=== PATIENT | male | born 1965 | race Caucasian/White ===

== ENCOUNTER → 2017-04-12 10:52 | Outpatient (CLI) | payer OTHER, SELFPAY ==
[2017-04-12 12:06] LABS: Absolute Lymphocyte Count 2.48 X10^3/ul (0.83-4.51); Basophil# 0.05 X10^3/uL; Basophil% 0.6 % (0-1); Eosinophil# 0.16 X10^3/uL; Eosinophils% 1.8 % (0-5); Hematocrit 49.2 % (40-54); Hemoglobin 16.8 g/dl (13.0-16.5); Lymphocyte # 2.48 X10^3/ul (4.0); Lymphocyte % 28.2 % (19-41); Mean Corp Hgb Conc 34.1 g/gl (32-36); Mean Corpuscular Hgb 29.5 pg (27.0-32.0); Mean Corpuscular Volume 86.5 fL (80-94); Mean Platelet Vol. 10.8 fl (6.2-12.0); Monocyte# 1.03 X10^3/uL; Monocyte% 11.7 % (0-10); Neutrophil # 5.03 X10^3/uL (2.7-7.7); Neutrophil % 57.2 % (47-70); Platelet Count 271 K/mm3 (150-450); RBC Distribution Width CV 13.7 % (11.6-14.6); RBC Distribution Width SD 43.3 fl (35.1-43.9); Red Blood Count 5.69 M/mm3 (4.6-6.2); White Blood Count 8.8 K/mm3 (4.4-11.0)
[2017-04-12 12:08] LABS: POSITIVE COUNT NO; POSITIVE DIFFERENTIAL NO; POSITIVE MORPHOLOGY NO
[2017-04-12 12:18] LABS: Hemoglobin A1c 5.7 % (4.2-6.3)
[2017-04-12 12:41] LABS: ALB/GLOB Ratio 1.1 RATIO (0.9-2.4); AST(SGOT) 44 U/L (15-37); Alanine Aminotransfer ALT/SGPT 119 U/L (16-61); Alkaline Phosphatase 62 U/L (45-117); Anion Gap 6 (5-15); BUN 14 mg/dL (7-18); BUN/Creat Ratio 11.3 RATIO (10-20); Calcium,Total 8.7 mg/dL (8.5-10.1); Chloride 103 mmol/L (98-107); Creatinine, Serum 1.24 mg/dL (0.70-1.30); EST Glomerular Filtration Rate 66 mL/min (>60); Est Glom Filt Rate - Afr Amer 79 mL/min (>60); Globulin 3.5 g/dL (2.2-4.2); Glucose 92 mg/dL (70-110); PSA,Total - Annual Screen 1.32 ng/mL (0.00-4.00); Potassium 4.6 mmol/L (3.5-5.1); Protein, Total 7.5 g/dL (6.4-8.2); Sodium Level 138 mmol/L (136-145); T4 Free Direct 1.14 ng/dL (0.76-1.46); Thyroid Stim Hormone (TSH) 1.56 uIU/mL (0.358-3.74)
== END ==
PROVIDERS: Visit Provider Family Medicine
DX: N18.9 Chronic kidney disease, unspecified (principal); E78.5 Hyperlipidemia, unspecified; K76.0 Fatty (change of) liver, not elsewhere classified; Z80.42 Family history of malignant neoplasm of prostate
CPT/HCPCS: 36415; 80053; 83036; 84153; 84439; 84443; 85025; G0103

== ENCOUNTER → 2017-05-31 09:20 | Outpatient (CLI) | payer OTHER, SELFPAY ==
[2017-05-31 10:54] LABS: AST(SGOT) 24 U/L (15-37); Alanine Aminotransfer ALT/SGPT 55 U/L (16-61); Albumin, Serum 3.9 g/dL (3.2-5.0); Alkaline Phosphatase 56 U/L (45-117); Bilirubin, Direct 0.11 mg/dL (0.00-0.30); Cholesterol 283 mg/dL (200); Globulin 3.5 g/dL (2.2-4.2); High Density Lipoprotein 48 mg/dL; Protein, Total 7.4 g/dL (6.4-8.2); Triglycerides 243 mg/dL; Very Low Density Lipoprotein 49 mg/dL (5-40)
== END ==
PROVIDERS: Family Provider Family Medicine; PCP Family Medicine; Visit Provider Family Medicine
DX: N18.9 Chronic kidney disease, unspecified (principal); E78.5 Hyperlipidemia, unspecified
CPT/HCPCS: 36415; 80061; 80076

== ENCOUNTER → 2017-08-29 06:40 | Outpatient (CLI) | payer OTHER, SELFPAY ==
[2017-08-29 07:59] LABS: AST(SGOT) 27 U/L (15-37); Alanine Aminotransfer ALT/SGPT 49 U/L (16-61); Albumin, Serum 3.9 g/dL (3.2-5.0); Alkaline Phosphatase 58 U/L (45-117); Bilirubin, Direct 0.09 mg/dL (0.00-0.30); Cholesterol 279 mg/dL (200); Globulin 3.4 g/dL (2.2-4.2); High Density Lipoprotein 39 mg/dL; Protein, Total 7.3 g/dL (6.4-8.2); Triglycerides 451 mg/dL
== END ==
PROVIDERS: Family Provider Family Medicine; PCP Family Medicine; Visit Provider Family Medicine
DX: E78.5 Hyperlipidemia, unspecified (principal); R79.89 Other specified abnormal findings of blood chemistry
CPT/HCPCS: 36415; 80061; 80076

== ENCOUNTER → 2017-12-01 07:35 | Outpatient (CLI) | payer OTHER, SELFPAY ==
[2017-12-01 08:41] LABS: AST(SGOT) 23 U/L (15-37); Alanine Aminotransfer ALT/SGPT 62 U/L (16-61); Albumin, Serum 3.8 g/dL (3.2-5.0); Alkaline Phosphatase 61 U/L (45-117); Bilirubin, Direct 0.11 mg/dL (0.00-0.30); Cholesterol 281 mg/dL (200); Globulin 3.5 g/dL (2.2-4.2); High Density Lipoprotein 41 mg/dL; Protein, Total 7.3 g/dL (6.4-8.2); Triglycerides 363 mg/dL; Very Low Density Lipoprotein 73 mg/dL (5-40)
[2017-12-04 06:48] LABS: Anion Gap 7 (5-15); BUN 14 mg/dL (7-18); Chloride 106 mmol/L (98-107); EST Glomerular Filtration Rate 57 mL/min (>60); Est Glom Filt Rate - Afr Amer 69 mL/min (>60); Glucose 100 mg/dL (74-106); Potassium 4.4 mmol/L (3.5-5.1); Sodium Level 140 mmol/L (136-145); Uric Acid 7.8 mg/dL (3.5-7.2)
== END ==
PROVIDERS: Family Provider Family Medicine; PCP Family Medicine; Visit Provider Family Medicine
DX: E78.5 Hyperlipidemia, unspecified (principal); N18.9 Chronic kidney disease, unspecified; M10.9 Gout, unspecified
CPT/HCPCS: 36415; 80048; 80061; 80076; 84550

== ENCOUNTER → 2018-05-03 10:08 | Outpatient (CLI) | payer OTHER, SELFPAY ==
[2018-05-03 11:56] LABS: ALB/GLOB Ratio 1.2 RATIO (0.9-2.4); AST(SGOT) 33 U/L (15-37); Alanine Aminotransfer ALT/SGPT 84 U/L (16-61); Albumin, Serum 4.1 g/dL (3.2-5.0); Alkaline Phosphatase 60 U/L (45-117); Anion Gap 8 (5-15); BUN 14 mg/dL (7-18); BUN/Creat Ratio 10.4 RATIO (10-20); Calcium,Total 8.7 mg/dL (8.5-10.1); Chloride 107 mmol/L (98-107); Cholesterol 185 mg/dL (200); Creatinine, Serum 1.35 mg/dL (0.70-1.30); EST Glomerular Filtration Rate 59 mL/min (>60); Est Glom Filt Rate - Afr Amer 72 mL/min (>60); Globulin 3.5 g/dL (2.2-4.2); Glucose 94 mg/dL (74-106); High Density Lipoprotein 46 mg/dL; Potassium 4.1 mmol/L (3.5-5.1); Protein, Total 7.6 g/dL (6.4-8.2); Sodium Level 141 mmol/L (136-145); Triglycerides 192 mg/dL; Uric Acid 7.1 mg/dL (3.5-7.2); Very Low Density Lipoprotein 38 mg/dL (5-40)
== END ==
PROVIDERS: Family Provider Family Medicine; PCP Family Medicine; Referring Provider Family Medicine; Visit Provider Family Medicine
DX: M10.9 Gout, unspecified (principal); E78.5 Hyperlipidemia, unspecified; A69.20 Lyme disease, unspecified; R74.8 Abnormal levels of other serum enzymes
CPT/HCPCS: 36415; 80053; 80061; 84550

== ENCOUNTER 2018-07-10 20:00 | Emergency (ER) | payer OTHER, SELFPAY ==
[2018-07-10 20:01] VITALS: BP 161/80; PULSE 89; RESP 16; TEMP 37.2; O2SAT 95; BMI 35.9
--- NOTE | 2018-07-10 20:04 | RAD_ITS ---
STUDY: X-RAY CHEST REASON FOR EXAM: Male, 52 years old. Cough TECHNIQUE: Single frontal view COMPARISON: May 08, 2016 FINDINGS: The lungs are clear and expanded. There is no demonstrated pleural abnormality. Normal size heart. Normal mediastinum and jeff. Normal visualized pulmonary arteries. Normal visualized aortic arch and descending thoracic aorta. Degenerative changes of the thoracic spine. Normal visualized ribs, clavicles, and shoulders. Gaseous distended stomach is noted in the upper abdomen. RAD/Chest 1 View (Portable) IMPRESSION: Normal x-ray examination of the chest. Gaseous distended stomach is noted in the upper abdomen. Electronically Signed: Jarrod Rodriguez DO at 20:57 EDT Tel [phone], Service support ,
--- NOTE | 2018-07-10 20:04 | EKG12_ITS ---
Test Reason : COUGH Blood Pressure : / mmHG Vent. Rate : 079 BPM Atrial Rate : 079 BPM P-R Int : 144 ms QRS Dur : 094 ms QT Int : 348 ms P-R-T Axes : 047 001 -01 degrees QTc Int : 399 ms Normal sinus rhythm Normal ECG Confirmed by PASCUAL ECHEVERRIA ([id number]), deputy editor in chief JOSE J LIM ([id number]) on 07/16/2018 2:19:56 PM Referred By: Confirmed By:ANASTACIA ECHEVERRIA
[2018-07-10 20:20] VITALS: RESP 18; O2SAT 94; O2SAT 97
[2018-07-10 20:24] VITALS: BP 136/89; PULSE 84; RESP 15; O2SAT 93; O2SAT 96
--- NOTE | 2018-07-10 21:01 | CT_ITS ---
STUDY: CTA CHEST REASON FOR EXAM: Male, 52 years old. Shortness of breath RADIATION DOSAGE (If Supplied By Facility): CTDIvol = ( 12.66 ) mGy, DLP = ( 479.59 ) mGycm TECHNIQUE: The examination was performed with the intravenous administration of 100ML IV Isovue 370. Post-processing of the angiographic images was performed, with multiplanar reformation and 3D reconstruction. Individualized dose optimization techniques were used for this CT. COMPARISON: None. FINDINGS: Normal enhancement of the main pulmonary artery and right and left pulmonary arteries. Normal enhancement of the bilateral peripheral pulmonary arteries. There is no demonstrated pulmonary embolism. Normal thoracic aorta and visualized great vessels. There is no demonstrated aortic dissection. Normal heart and pericardium. Normal mediastinum. Normal hilar regions. Normal visualized trachea and bronchi. The lungs are well expanded. Normal pulmonary parenchyma. Normal pleura. Normal chest wall structures. Normal osseous structures. Normal visualized upper abdomen. CT/CTA Chest W/WO Contrast IMPRESSION: Normal CTA chest examination, without a demonstrated pulmonary embolism or arterial dissection. Electronically Signed: Jarrod Rodriguez DO at 22:28 EDT Tel [phone], Service support ,
[2018-07-10 21:18] LABS: Absolute Lymphocyte Count 2.34 X10^3/ul (0.83-4.51); Absolute Neutrophil Count 4.7 X10^3/uL (2.0-7.7); Basophil# 0.05 X10^3/uL; Basophil% 0.5 % (0-1); Eosinophil# 0.55 X10^3/uL; Hematocrit 49.5 % (40-54); Lymphocyte # 2.34 X10^3/ul (4.0); Lymphocyte % 25.6 % (19-41); Mean Corp Hgb Conc 34.3 g/gl (32-36); Mean Corpuscular Hgb 29.9 pg (27.0-32.0); Mean Platelet Vol. 10.4 fl (6.2-12.0); Monocyte# 1.46 X10^3/uL; Neutrophil # 4.73 X10^3/uL (2.7-7.7); Neutrophil % 51.7 % (47-70); Platelet Count 216 K/mm3 (150-450); RBC Distribution Width CV 13.8 % (11.6-14.6); RBC Distribution Width SD 43.8 fl (35.1-43.9); Red Blood Count 5.69 M/mm3 (4.6-6.2); White Blood Count 9.2 K/mm3 (4.4-11.0)
[2018-07-10 21:21] LABS: POSITIVE COUNT NO; POSITIVE DIFFERENTIAL NO; POSITIVE MORPHOLOGY NO
[2018-07-10 21:41] LABS: Anion Gap 6 (5-15); BUN 16 mg/dL (7-18); BUN/Creat Ratio 11.5 RATIO (10-20); Calcium,Total 8.8 mg/dL (8.5-10.1); Chloride 104 mmol/L (98-107); Creatinine, Serum 1.39 mg/dL (0.70-1.30); EST Glomerular Filtration Rate 57 mL/min (>60); Est Glom Filt Rate - Afr Amer 69 mL/min (>60); Estimated Creatinine Clearance 64.92 ml/min; Glucose 107 mg/dL (74-106); Potassium 4.2 mmol/L (3.5-5.1); Sodium Level 137 mmol/L (136-145)
[2018-07-10 22:20] VITALS: BP 143/89; PULSE 73; RESP 16; O2SAT 93
[2018-07-10 23:25] VITALS: O2SAT 94
--- NOTE | 2018-07-10 23:31 | ED.DCSUM_ITS ---
- ER Visit Summary Date of Service: 07/10/18 Chief Complaint: Cough History of Present Illness: The patient is a 52 M presenting with cough since last Monday. He states that he has had chest pain only when he coughs. He has had mild shortness of breath. The cough is nonproductive. He has had some back pain with coughing. He has had pain with deep inspiration. 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 No other PE/DVT risk factors. He is not a smoker. Physical Examination: Vitals are stable. Patient is afebrile. Alert no acute distress. HEENT exam is unremarkable. Neck is supple. Lungs are clear and equal bilaterally. Heart is regular rate and rhythm. Abdomen is soft nontender nondistended. Extremities are unremarkable. Skin is warm and dry. No focal neurologic deficit. Remainder of exam is unremarkable. Emergency Department Course and Treatment: EKG is sinus rhythm rate of 79, unchanged from previous. Chest x-ray shows no acute process. CBC, chemistries unremarkable other than creatinine 1.39. Troponin is negative. Repeat troponin is negative. Patient was given IV fluids. CTA chest shows normal CTA chest examination, without a demonstrated pulmonary embolism or arterial dissection. On reevaluation, patient is resting comfortably. His ambulatory pulse ox is 96% on room air. He is given a prescription for Tessalon Perles. Advised to follow up with his primary care physician. Advised return to ED for worsening complaints. Disposition: Discharge home Impression: Bronchitis This note was generated with [employer] dictation software. It may contain incorrect words, spelling, and punctuation that were not noted in review of the chart prior to signing ED Disposition - Plan for ED Patient: Disposition: Home or Assisted Living Instructions: ED Upper Resp Infec No Abx Tx Prescriptions: Benzonatate [Tessalon Perle] 200 mg PO TID PRN PRN #20 capsule PRN Reason: Cough Referrals: Renato Rider MD [Primary Care Provider] -
[2018-07-10] MEDS: Benzonatate 100 MG Capsule 200 MG PO (23:45)
== END 2018-07-11 00:44 | disposition home or self-care (01) ==
PROVIDERS: Emergency Provider Emergency Medicine; Family Provider Family Medicine; PCP Family Medicine
DX: J40 Bronchitis, not specified as acute or chronic (principal); R07.9 Chest pain, unspecified; Z79.899 Other long term (current) drug therapy
CPT/HCPCS: 71045; 71275; 80048; 84484; 85025; 93005; 94760; 96360; 96361; 99284; J7030; J7040; Q9967; A4216

== ENCOUNTER → 2018-11-08 06:20 | Outpatient (CLI) | payer OTHER, SELFPAY ==
[2018-11-08 08:00] LABS: ALB/GLOB Ratio 1.1 RATIO (0.9-2.4); AST(SGOT) 30 U/L (15-37); Alanine Aminotransfer ALT/SGPT 67 U/L (16-61); Albumin, Serum 3.8 g/dL (3.2-5.0); Alkaline Phosphatase 69 U/L (45-117); Anion Gap 7 (5-15); BUN 15 mg/dL (7-18); BUN/Creat Ratio 10.5 RATIO (10-20); Calcium,Total 9.1 mg/dL (8.5-10.1); Chloride 106 mmol/L (98-107); Cholesterol 212 mg/dL (200); Creatinine, Serum 1.43 mg/dL (0.70-1.30); EST Glomerular Filtration Rate 55 mL/min (>60); Est Glom Filt Rate - Afr Amer 67 mL/min (>60); Globulin 3.6 g/dL (2.2-4.2); Glucose 108 mg/dL (74-106); High Density Lipoprotein 45 mg/dL; PSA,Total - Annual Screen 1.47 ng/mL (0.00-4.00); Potassium 4.2 mmol/L (3.5-5.1); Protein, Total 7.4 g/dL (6.4-8.2); Sodium Level 140 mmol/L (136-145); Triglycerides 369 mg/dL; Very Low Density Lipoprotein 74 mg/dL (5-40)
[2018-11-08 08:08] LABS: Hemoglobin A1c 5.8 % (4.2-6.3)
== END ==
PROVIDERS: Family Provider Family Medicine; PCP Family Medicine; Referring Provider Family Medicine; Visit Provider Family Medicine
DX: E78.5 Hyperlipidemia, unspecified (principal); M10.9 Gout, unspecified; R73.01 Impaired fasting glucose; Z80.42 Family history of malignant neoplasm of prostate
CPT/HCPCS: 36415; 80053; 80061; 83036; 84153; G0103

== ENCOUNTER → 2019-02-19 07:16 | Outpatient (CLI) | payer SELFPAY ==
--- NOTE | 2019-02-19 07:20 | CT_ITS ---
STUDY: CARDIAC CALCIUM SCORING - CT CHEST REASON FOR EXAM: Male, 53 years old. Family history of heart disease. RADIATION DOSAGE (If Supplied By Facility): CTDIvol = ( 12.19 ) mGy, DLP = ( 219.42 ) mGycm TECHNIQUE: Axial non-enhanced images were acquired through the heart for the sole purpose of measuring coronary artery calcium. Individualized dose optimization techniques were used for this CT. COMPARISON: None. FINDINGS: This is an over read examination. Coronary artery calcification. Minimal increased markings at the lung bases suggestive of atelectasis and/or scarring. No pulmonary mass lesions present. CT/Limited Chest CT w/CCTA IMPRESSION: Mild degree of bibasilar atelectasis and/or scarring. No other abnormality is seen. Please go to: [email or web address] , for a description of the calculator. Electronically Signed: Seth Baker, at 9:25 EST , Service support ,
[2019-02-19 07:24] VITALS: BP 132/73; PULSE 63; RESP 16; O2SAT 96; BMI 35.2
--- NOTE | 2019-02-19 10:01 | CA.SCORE ---
Calcium Scoring Date of Study:: 02/19/19 Coronary Calcium Scoring: High-resolution Computed Tomographic imaging of the chest was performed on [02/19/2019], with particular attention paid to the coronary arteries. Images from the examination were analyzed for the presence and extent of coronary artery calcification , using coronary calcium quantification software. The patient tolerated the procedure well and there were no complications. The results of the coronary calcification analysis are provided below. - Findings Left Main (LM): 0 Left Anterior Descending (LAD): 74 Left Circumflex (LCX): 0 Right Coronary Artery (RCA): 0.79 Total Agatston Score: 74.79 Percentile Rankinth to 75th percentile Calcium Scoring Interpretation: 0 No identifiable atherosclerotic plaque. Very low cardiovascular disease risk. <5% chance of presence coronary artery disease A Negative Examination 1-10 Minimal Plaque burden. Significant coronary artery disease very unlikely. 11-100 Mild plaque burden. Likely mild or minimal coronary atherosclerosis. 101-400 Moderate plaque burden Moderate non-obstructive coronary artery disease highly likely. Over 400 Extensive plaque burden. High likelihood of at least one significant coronary stenosis (>50% diameter) Calcium Score: 11 - 100 Likely mild or minimal coronary stenosis - The above is suggestive of mild to minimal coronary atherosclerosis which is nonstenotic. A full assessment of cardiac risk should include an evaluation of all risk factors. The scores and percentile reported herein should be evaluated in that context.
== END ==
PROVIDERS: Family Provider Family Medicine; PCP Family Medicine; Referring Provider Family Medicine; Visit Provider Family Medicine
DX: E78.5 Hyperlipidemia, unspecified (principal); I10 Essential (primary) hypertension; R73.01 Impaired fasting glucose; E66.9 Obesity, unspecified; Z82.49 Family history of ischemic heart disease and other diseases of the circulatory system
CPT/HCPCS: 75571; 76380

== ENCOUNTER → 2019-04-24 09:16 | Outpatient (CLI) | payer OTHER, SELFPAY ==
[2019-02-19 07:24] VITALS: BMI 35.2
[2019-04-24 12:55] LABS: ALB/GLOB Ratio 1.2 RATIO (0.9-2.4); AST(SGOT) 23 U/L (15-37); Alanine Aminotransfer ALT/SGPT 64 U/L (16-61); Albumin, Serum 4.3 g/dL (3.2-5.0); Alkaline Phosphatase 63 U/L (45-117); Anion Gap 7 (5-15); BUN 15 mg/dL (7-18); BUN/Creat Ratio 11.6 RATIO (10-20); Calcium,Total 9.4 mg/dL (8.5-10.1); Chloride 104 mmol/L (98-107); Cholesterol 227 mg/dL (200); Creatinine, Serum 1.29 mg/dL (0.70-1.30); EST Glomerular Filtration Rate 62 mL/min (>60); Est Glom Filt Rate - Afr Amer 75 mL/min (>60); Globulin 3.5 g/dL (2.2-4.2); Glucose 102 mg/dL (74-106); High Density Lipoprotein 52 mg/dL; Potassium 4.1 mmol/L (3.5-5.1); Protein, Total 7.8 g/dL (6.4-8.2); Sodium Level 138 mmol/L (136-145); Thyroid Stim Hormone (TSH) 1.21 uIU/mL (0.358-3.74); Triglycerides 185 mg/dL; Uric Acid 5.9 mg/dL (3.5-7.2); Very Low Density Lipoprotein 37 mg/dL (5-40)
== END ==
PROVIDERS: PCP Family Medicine; Visit Provider Family Medicine
DX: E78.5 Hyperlipidemia, unspecified (principal); K76.0 Fatty (change of) liver, not elsewhere classified
CPT/HCPCS: 36415; 80053; 80061; 84443; 84550

== ENCOUNTER → 2020-02-10 09:39 | Outpatient (CLI) | payer OTHER, SELFPAY ==
[2019-02-19 07:24] VITALS: BMI 35.2
[2020-02-10 13:14] LABS: ALB/GLOB Ratio 1.2 RATIO (0.9-2.4); AST(SGOT) 23 U/L (15-37); Alanine Aminotransfer ALT/SGPT 64 U/L (16-61); Albumin, Serum 4.2 g/dL (3.2-5.0); Alkaline Phosphatase 67 U/L (45-117); Anion Gap 4 (5-15); BUN 13 mg/dL (7-18); BUN/Creat Ratio 9.6 RATIO (10-20); Calcium,Total 9.2 mg/dL (8.5-10.1); Chloride 107 mmol/L (98-107); Creatinine, Serum 1.36 mg/dL (0.70-1.30); EST Glomerular Filtration Rate 58 mL/min (>60); Est Glom Filt Rate - Afr Amer 70 mL/min (>60); Globulin 3.4 g/dL (2.2-4.2); Glucose 104 mg/dL (74-106); Potassium 4.1 mmol/L (3.5-5.1); Protein, Total 7.6 g/dL (6.4-8.2); Sodium Level 138 mmol/L (136-145); Thyroid Stim Hormone (TSH) 1.59 uIU/mL (0.358-3.74); Uric Acid 6.8 mg/dL (3.5-7.2)
== END ==
PROVIDERS: PCP Family Medicine; Visit Provider Family Medicine
DX: E78.5 Hyperlipidemia, unspecified (principal); K76.0 Fatty (change of) liver, not elsewhere classified; R73.01 Impaired fasting glucose
CPT/HCPCS: 36415; 80053; 84443; 84550

== ENCOUNTER → 2020-05-19 09:33 | Outpatient (CLI) | payer OTHER, SELFPAY ==
[2019-02-19 07:24] VITALS: BMI 35.2
[2020-05-19 12:15] LABS: Absolute Lymphocyte Count 1.79 X10^3/uL (0.83-4.51); Absolute Neutrophil Count 3.2 X10^3/uL (2.0-7.7); Basophil# 0.06 X10^3/uL; Eosinophil# 0.13 X10^3/uL; Eosinophils% 2.2 % (0-5); Hematocrit 50.1 % (40-54); Hemoglobin 16.2 g/dL (13.0-16.5); Lymphocyte # 1.79 X10^3/ul (4.0); Lymphocyte % 30.8 % (19-41); Mean Corp Hgb Conc 32.3 g/dL (32-36); Mean Corpuscular Hgb 28.6 pg (27.0-32.0); Mean Corpuscular Volume 88.4 fL (80-94); Mean Platelet Vol. 10.8 fl (6.2-12.0); Monocyte# 0.66 X10^3/uL; Monocyte% 11.3 % (0-10); NRBC Flagged by Analyzer 0 % (0-5); Neutrophil # 3.17 X10^3/uL (2.7-7.7); Neutrophil % 54.5 % (47-70); Platelet Count 237 K/mm3 (150-450); RBC Distribution Width CV 12.8 % (11.6-14.6); RBC Distribution Width SD 41.7 fl (35.1-43.9); Red Blood Count 5.67 M/mm3 (4.6-6.2); White Blood Count 5.8 K/mm3 (4.4-11.0)
[2020-05-19 12:59] LABS: ALB/GLOB Ratio 1.3 RATIO (0.9-2.4); AST(SGOT) 23 U/L (15-37); Alanine Aminotransfer ALT/SGPT 39 U/L (16-61); Albumin, Serum 4.1 g/dL (3.2-5.0); Alkaline Phosphatase 60 U/L (45-117); Anion Gap 8 (5-15); BUN 14 mg/dL (7-18); BUN/Creat Ratio 10.8 RATIO (10-20); CPK Total, Creatine Kinase 181 U/L (39-308); Chloride 107 mmol/L (98-107); Cholesterol 206 mg/dL (200); EST Glomerular Filtration Rate 61 mL/min (>60); Est Glom Filt Rate - Afr Amer 74 mL/min (>60); Globulin 3.1 g/dL (2.2-4.2); Glucose 89 mg/dL (74-106); High Density Lipoprotein 50 mg/dL; PSA,Total - Annual Screen 2.56 ng/mL (0.00-4.00); Potassium 3.9 mmol/L (3.5-5.1); Protein, Total 7.2 g/dL (6.4-8.2); Sodium Level 140 mmol/L (136-145); T4 Free Direct 1.02 ng/dL (0.76-1.46); Thyroid Stim Hormone (TSH) 1.31 uIU/mL (0.358-3.74); Triglycerides 169 mg/dL; Very Low Density Lipoprotein 34 mg/dL (5-40)
== END ==
PROVIDERS: PCP Family Medicine; Visit Provider Family Medicine
DX: E78.5 Hyperlipidemia, unspecified (principal); R73.01 Impaired fasting glucose; K76.0 Fatty (change of) liver, not elsewhere classified; N18.9 Chronic kidney disease, unspecified; I25.10 Atherosclerotic heart disease of native coronary artery without angina pectoris; Z80.42 Family history of malignant neoplasm of prostate
CPT/HCPCS: 36415; 80053; 80061; 82550; 84153; 84439; 84443; 85025; G0103

== ENCOUNTER 2021-05-13 07:43 | Outpatient (CLI) | payer OTHER, SELFPAY ==
[2021-05-13 09:57] LABS: ALB/GLOB Ratio 1.2 RATIO (0.9-2.4); AST(SGOT) 24 U/L (15-37); Alanine Aminotransfer ALT/SGPT 54 U/L (16-61); Albumin, Serum 4.1 g/dL (3.2-5.0); Alkaline Phosphatase 59 U/L (45-117); Anion Gap 4 (5-15); BUN 11 mg/dL (7-18); Calcium,Total 9.6 mg/dL (8.5-10.1); Chloride 104 mmol/L (98-107); Cholesterol 218 mg/dL (200); Creatinine, Serum 1.38 mg/dL (0.70-1.30); EST Glomerular Filtration Rate 57 mL/min (>60); Est Glom Filt Rate - Afr Amer 69 mL/min (>60); Globulin 3.4 g/dL (2.2-4.2); Glucose 103 mg/dL (74-106); High Density Lipoprotein 47 mg/dL; Potassium 4.3 mmol/L (3.5-5.1); Protein, Total 7.5 g/dL (6.4-8.2); Sodium Level 138 mmol/L (136-145); Triglycerides 216 mg/dL; Very Low Density Lipoprotein 43 mg/dL (5-40)
== END 2021-05-13 23:59 | disposition home or self-care (01) ==
LOC: LAB 07:46
PROVIDERS: Internal Medicine Endocrinology, Diabetes & Metabolism; PCP Family Medicine; Referring Provider Nurse Practitioner Family; Visit Provider Nurse Practitioner Family
DX: M10.9 Gout, unspecified (principal); E78.5 Hyperlipidemia, unspecified
CPT/HCPCS: 36415; 80053; 80061; 84550

== ENCOUNTER 2021-05-14 17:41 | Emergency (ER) | payer OTHER, SELFPAY ==
[2021-05-14 17:42] VITALS: BP 180/91; PULSE 82; RESP 18; TEMP 36.7; O2SAT 98; BMI 37.3
--- NOTE | 2021-05-14 18:10 | EKG12_ITS ---
Test Reason : CP Blood Pressure : / mmHG Vent. Rate : 079 BPM Atrial Rate : 079 BPM P-R Int : 140 ms QRS Dur : 098 ms QT Int : 364 ms P-R-T Axes : 050 017 -01 degrees QTc Int : 417 ms Normal sinus rhythm with sinus arrhythmia Normal ECG Confirmed by ELLIOTT STAPLETON, SRINATH ([id number]), school photograph editor MARQUITA ASHBY ([id number]) on 05/17/2021 10:55:18 AM Referred By: TL/PC Confirmed By:SRINATH GALLAGHER MD
--- NOTE | 2021-05-14 18:13 | RAD_ITS ---
STUDY: X-RAY CHEST REASON FOR EXAM: Male, 55 years old. chest pain TECHNIQUE: Single frontal view of the chest was obtained COMPARISON: None. FINDINGS: The lungs are clear and expanded. There is no demonstrated pleural abnormality. Normal size heart. Normal mediastinum and jeff. Normal visualized pulmonary arteries. Normal visualized aortic arch and descending thoracic aorta. Normal visualized thoracic spine. Normal visualized ribs, clavicles, and shoulders. There is no demonstrated abnormality of the visualized soft tissue structures of the upper abdomen. RAD/Chest 1 View (Portable) IMPRESSION: Normal x-ray examination of the chest. Electronically Signed: Tacho Baron MD at 18:34 EST ,
[2021-05-14 18:14] VITALS: O2SAT 97
[2021-05-14] MEDS: 0.9% Normal Saline 1,000 ML 999 ML IV (18:23)
[2021-05-14 18:27] LABS: Absolute Lymphocyte Count 3.02 X10^3/uL (0.83-4.51); Absolute Neutrophil Count 6.2 X10^3/uL (2.0-7.7); Basophil# 0.06 X10^3/uL; Basophil% 0.6 % (0-1); Eosinophil# 0.17 X10^3/uL; Eosinophils% 1.6 % (0-5); Hematocrit 48.5 % (40-54); Hemoglobin 16.1 g/dL (13.0-16.5); Lymphocyte # 3.02 X10^3/ul (0.83-4.51); Lymphocyte % 28.4 % (19-41); Mean Corp Hgb Conc 33.2 g/dL (32-36); Mean Corpuscular Hgb 29.2 pg (27.0-32.0); Mean Corpuscular Volume 87.9 fL (80-94); Mean Platelet Vol. 10.3 fl (6.2-12.0); Monocyte# 1.17 X10^3/uL; NRBC Flagged by Analyzer 0 % (0-5); Neutrophil # 6.17 X10^3/uL (2.7-7.7); Neutrophil % 58.1 % (47-70); Platelet Count 280 K/mm3 (150-450); RBC Distribution Width SD 41.9 fl (35.1-43.9); Red Blood Count 5.52 M/mm3 (4.6-6.2); White Blood Count 10.6 K/mm3 (4.4-11.0)
[2021-05-14 18:54] LABS: Anion Gap 6 (5-15); BUN 14 mg/dL (7-18); BUN/Creat Ratio 9.6 RATIO (10-20); Calcium,Total 9.4 mg/dL (8.5-10.1); Chloride 102 mmol/L (98-107); Creatinine, Serum 1.46 mg/dL (0.70-1.30); EST Glomerular Filtration Rate 53 mL/min (>60); Est Glom Filt Rate - Afr Amer 65 mL/min (>60); Estimated Creatinine Clearance 59.72 ml/min; Glucose 187 mg/dL (74-106); Magnesium 1.8 mg/dL (1.6-2.6); Potassium 3.7 mmol/L (3.5-5.1); Sodium Level 135 mmol/L (136-145); Thyroid Stim Hormone (TSH) 2.59 uIU/mL (0.358-3.74); Troponin-I HS 5 pg/mL (3.0-78.0)
[2021-05-14 18:58] VITALS: BP 159/101; PULSE 65; RESP 16; O2SAT 97
[2021-05-14 19:04] LABS: BNP,B-Type NATRIURETIC PEPTIDE < 2.0 pg/mL (0-100)
--- NOTE | 2021-05-14 19:08 | EX.ED.DYSGE1 ---
HPI History of Present Illness Chief Complaint: Chest Pain Narrative Narrative: Patient presents with a few hour history of chills, and not feeling well, he was sweaty. Chief complaint has chest pain as his main complaint however patient does not really have much chest pain he just does not feel well. He does not have abdominal pain but he has some nausea. He has no headache he has no vision changes. He has no back pain or tearing sensation. No pleuritic component. No lower extremity edema or calf pain. He was recently in [place] for 2 weeks but his is not ill as of now. [facility] Medical History Adrenal mass, left Chronic renal failure, stage 2 (mild) Dehydration Diverticulitis Diverticulosis Gastroenteritis due to norovirus GERD (gastroesophageal reflux disease) Gout Hay fever Hyperlipidemia Hypertriglyceridemia Kidney disease Nephrolithiasis Obesity (BMI 30.0-34.9) Pneumonia Seasonal allergies Sepsis Steatosis of liver Stomach ulcer Home Medications allopurinol 100 mg tablet 100 mg PO DAILY 07/28/20 [History Last Taken Unknown] aspirin 81 mg tablet,delayed release 81 mg PO DAILY 07/28/20 [History Last Taken Unknown] coenzyme Q10 [Vitaline CoQ10] 100 mg PO DAILY 07/28/20 [History Last Taken Unknown] multivitamin 1 tab PO DAILY 07/28/20 [History Last Taken Unknown] turmeric root extract 500 mg capsule 1,000 mg PO DAILY cap 07/28/20 [History Last Taken Unknown] ezetimibe 10 mg tablet 10 mg PO DAILY #30 tab 01/15/21 [Rx Last Taken Unknown] indomethacin 50 mg PO TID 05/14/21 [History Last Taken Unknown] Allergy/AdvReac Type Severity Reaction Status Date / Time Penicillins Allergy Severe Anaphylaxis Verified 05/14/21 17:41 Family History Grandfather Blood clot in vein Myocardial infarction Heart disease Father Myocardial infarction Heart disease Hypercholesterolemia CVA (cerebral vascular accident) Severe allergy Prostate cancer Mother Hypertension Hypercholesterolemia Sister Hypertension Surgical History H/O lithotripsy History of appendectomy Hx of tonsillectomy S/P colonoscopy Status post colectomy Social History Smoking Status: Never smoker alcohol intake: current alcohol intake frequency: holidays/special occasions only substance use type: does not use what type of physical activity do you participate in: walking frequency: daily ROS ROS ED ROS Narrative Past medical history: Reviewed Medications: Reviewed Social history: Noncontributory Review of systems: All systems negative except as indicated General: No fever, some chills. Eyes: No visual changes ENT: No upper airway congestion, normal voice Neck: No neck pain Cardiovascular: No chest pain, but felt some discomfort in some palpitations Respiratory: No shortness of breath or cough Gastrointestinal: No abdominal pain, there is some nausea Genitourinary: No dysuria Musculoskeletal: Denies myalgias no difficulty with ambulation Skin: No rash Neurological: No memory loss, confusion or any focal weakness Psych: No recent behavioral changes Hematologic: No easy bleeding or easy bruising EXAM Physical Exam Narrative Exam Narrative: Physical exam General: Well nourished, Well developed, No Acute Distress Head: Normocephalic, Atraumatic Eyes: Conjunctiva not pale ENT: Moist mucous membranes Neck: Supple, Nontender, No lymphadenopathy Cardiovascular: Regular rate, Regular rhythm Respiratory: No distress, CTA bilaterally Abdomen: Soft, Nontender, Nondistended Back: Nontender, Normal Inspection. Negative for: CVA tenderness Extremities: Nontender, No edema Skin: Normal color, No rash Neurological: Alert, Normal Strength, Normal Sensation Psychological: Normal affect Const Vital Signs: 05/14/21 17:42 05/14/21 18:14 05/14/21 18:58 Temperature 98.1 F Temperature Source Temporal Pulse Rate 82 65 Respiratory Rate 18 16 Blood Pressure 180/91 H 159/101 H Blood Pressure Mean 120 120 Pulse Ox 98 97 97 Oxygen Delivery Method Room Air Room Air Room Air 05/14/21 19:33 Temperature Temperature Source Pulse Rate 64 Respiratory Rate 20 H Blood Pressure 160/93 H Blood Pressure Mean 115 Pulse Ox Oxygen Delivery Method MDM MDM MDM Narrative Medical decision making narrative: Patient has a normal ED work-up. He appears well, he was observed in the ED and is now asymptomatic. I believe he is stable for discharge. Lab Data Labs: Laboratory Results - last 24 hr 05/14/21 05/14/21 05/14/21 17:50 17:50 17:50 WBC 10.6 RBC 5.52 Hgb 16.1 Hct 48.5 MCV 87.9 MCH 29.2 MCHC 33.2 RDW Std Deviation 41.9 RDW Coeff of Gladis 13.0 Plt Count 280 MPV 10.3 Immature Gran % (Auto) 0.300 Neut % (Auto) 58.1 Lymph % (Auto) 28.4 Overton % (Auto) 11.0 H Eos % (Auto) 1.6 Baso % (Auto) 0.6 Absolute Neuts (auto) 6.2 Absolute Lymphs (auto) 3.02 Nucleated RBC % 0 Sodium 135 L Potassium 3.7 Chloride 102 Carbon Dioxide 27.0 Anion Gap 6 BUN 14 Creatinine 1.46 H Estim Creat Clear Calc 59.72 Est GFR (MDRD) Af Amer 65 Est GFR (MDRD) Non-Af 53 L BUN/Creatinine Ratio 9.6 L Glucose 187 H Calcium 9.4 Magnesium 1.8 Troponin I High Sens 5 B-Natriuretic Peptide < 2.0 TSH 2.59 05/14/21 19:50 WBC RBC Hgb Hct MCV MCH MCHC RDW Std Deviation RDW Coeff of Gladis Plt Count MPV Immature Gran % (Auto) Neut % (Auto) Lymph % (Auto) Overton % (Auto) Eos % (Auto) Baso % (Auto) Absolute Neuts (auto) Absolute Lymphs (auto) Nucleated RBC % Sodium Potassium Chloride Carbon Dioxide Anion Gap BUN Creatinine Estim Creat Clear Calc Est GFR (MDRD) Af Amer Est GFR (MDRD) Non-Af BUN/Creatinine Ratio Glucose Calcium Magnesium Troponin I High Sens 8 B-Natriuretic Peptide TSH Radiography Diagnostic Testing: Clinical Impression(s) from Imaging Studies Chest X-Ray 05/14/21 18:13 IMPRESSION: Normal x-ray examination of the chest. Electronically Signed: Tacho Baron MD at 18:34 EST Reading Location ID and State: [facility] / [place] Tel , Service support , EKG Initial EKG: Comments: Sinus rhythm with a rate of 79. Normal OH and QTc intervals. No ischemic changes. Overall unremarkable EKG Interpreted by emergency doctor. Discharge Plan Triage Chief Complaint: Chest Pain ED Provider: Ramon Lambert Dx/Rx/DC Orders Clinical Impression: Weakness Instructions: ED Weakness (Uncertain Cause) Prescriptions: No Action multivitamin Tablet 1 tab PO DAILY RF: 0 turmeric root extract 500 mg capsule 1,000 mg PO DAILY RF: 0 coenzyme Q10 [Vitaline CoQ10] 100 mg PO DAILY RF: 0 allopurinol 100 mg tablet 100 mg PO DAILY RF: 0 aspirin [Adult Aspirin Regimen] 81 mg tablet,delayed release (DR/EC) 81 mg PO DAILY RF: 0 ezetimibe 10 mg tablet 10 mg PO DAILY Qty: 30 RF: 6 indomethacin 50 mg capsule 50 mg PO TID RF: 0 Primary Care Provider: Renato Rider Referrals: Renato Rider MD [Primary Care Provider] - 2 Days Disposition Disposition: Home, Self Care
[2021-05-14 19:33] VITALS: BP 160/93; PULSE 64; RESP 20
[2021-05-14 20:36] LABS: Troponin-I HS 8 pg/mL (3.0-78.0)
[2021-05-14 21:00] VITALS: BP 137/78; PULSE 70; RESP 23; O2SAT 98
== END 2021-05-14 21:29 | disposition home or self-care (01) ==
PROVIDERS: Emergency Provider Emergency Medicine; PCP Family Medicine; Visit Provider Emergency Medicine
DX: R07.9 Chest pain, unspecified (principal); R53.1 Weakness; N18.2 Chronic kidney disease, stage 2 (mild); E78.5 Hyperlipidemia, unspecified; K21.9 Gastro-esophageal reflux disease without esophagitis; E66.9 Obesity, unspecified; Z79.82 Long term (current) use of aspirin; Z79.899 Other long term (current) drug therapy
CPT/HCPCS: 71045; 80048; 83735; 83880; 84443; 84484; 85025; 93005; 96360; 99284; J7030; A4216

== ENCOUNTER 2021-06-01 08:01 | Outpatient (CLI) | payer OTHER, SELFPAY ==
--- NOTE | 2021-06-01 08:03 | ECHOD_ITS ---
Version 2 Reason For Study: HTN Procedure This was a 2D Doppler, Color Flow transthoracic echocardiogram. Myocardial strain analysis was performed in this exam to aid in the assessment of cardiac function. Exam performed in department. Left Ventricle Normal LV size. Left ventricular systolic function is normal. The estimated ejection fraction is 60 %. Stage 1 diastolic dysfunction. No regional wall motion abnormalities noted. Right Ventricle Normal RV size. Normal systolic function. Atria Normal left atrium. Normal right atrium. Mitral Valve Normal mitral valve. Tricuspid Valve Normal tricuspid valve. Unable to estimate RV systolic pressure due to inadequate jet, pulmonary artery pressure probably normal. Aortic Valve Normal aortic valve. Trisinus/trileaflet aortic valve. Pulmonic Valve Normal pulmonic valve. Great Vessels Normal aortic root. The pulmonary artery is normal size. Normal inferior vena cava. Pericardium/Pleural No pericardial effusion. MMode/2D Measurements & Calculations LVIDd: 4.5 cm IVSd: 1.1 cm Ao root diam: 3.4 cm LVIDs: 2.6 cm LVPWd: 1.1 cm RVDd: 3.4 cm FS: 43.1 % LAV(MOD-bp): 49.6 ml LVAd ap4: 33.8 cm2 LVAd ap2: 33.6 cm2 LAV(MOD-bp) Indexed: 21.5 ml/m2 LVLd ap4: 8.6 cm LVLd ap2: 8.8 cm LAV(MOD-sp2): 44.6 ml EDV(MOD-sp4): 110.6 ml EDV(MOD-sp2): 111.6 ml LAV(MOD-sp4): 55.6 ml EDV(sp4-el): 113.3 ml EDV(sp2-el): 109.0 ml LVAs ap4: 21.1 cm2 LVAs ap2: 20.5 cm2 LVLs ap4: 7.9 cm LVLs ap2: 7.7 cm ESV(MOD-sp4): 48.7 ml ESV(MOD-sp2): 47.1 ml ESV(sp4-el): 47.9 ml ESV(sp2-el): 46.4 ml EF(MOD-sp4): 56.0 % EF(MOD-sp2): 57.8 % EF(sp4-el): 57.8 % SV(MOD-sp4): 61.9 ml SV(MOD-sp2): 64.6 ml SV(sp4-el): 65.4 ml LA dimension(2D): 3.8 cm LA A4 area: 18.9 cm2 RA A4 area: 12.7 cm2 Doppler Measurements & Calculations MV E max jacky: 76.0 cm/sec Lat Peak E' Jacky: 8.5 cm/sec Med Peak E' Jacky: 8.3 cm/sec MV A max jacky: 80.8 cm/sec E/E' lat: 8.9 E/E' med: 9.1 MV E/A: 0.94 Ao V2 max: 165.2 cm/sec LV V1 max: 117.2 cm/sec PA V2 max: 100.9 cm/sec Ao max P.9 mmHg LV V1 max P.5 mmHg ECHO/Echo Complete Interpretation Summary Normal LV size. Left ventricular systolic function is normal. The estimated ejection fraction is 60 %. Stage 1 diastolic dysfunction. The global longitudinal strain is normal. The global longitudinal strain = -20. 9 % (normal). Ordering Physician: Cb Lucero Referring Physician: Renato Rider Performed By: Alfreda Jones RDCS
--- NOTE | 2021-06-01 08:03 | RDU_ITS ---
Reason For Study: HTN Right Renal Artery Left Renal Artery Right renal artery ostium Left renal artery ostium 94.7/31.1 114.5/37.7 RSV/EDV. PSV/EDV. Right renal artery proximal Left renal artery proximal PSV/EDV 158.3/53.1 PSV/EDV. 103.5/35.5 . Right renal artery mid 140.8/50.9 Left renal artery mid 94.7/26.7 PSV/EDV. PSV/EDV . Right renal artery distal Left renal artery distal 99.8/36.2 118.8/33.3 PSV/EDV. PSV/EDV. Right Renal Parenchyma Left Renal Parenchyma Upper Pole Medula 25.4/11.2 Left upper pole medulla 29.0/12.6 PSV/EDV. PSV/EDV . Right upper pole medulla EDR .44 . Left upper pole medulla EDR .43 . Right upper pole medulla R.I. .56 . Left upper pole medulla R.I. .57 . Upper Alejandro Cortx 21.0/10.1 PSV/EDV. UP Cortex 15.9/8.2 PSV/EDV. Right upper pole cortex EDR .48 . Left upper pole cortex EDR .52 . Right upper pole cortex R.I. .52 . Left upper pole cortex R.I. .48 . Right lower Pole medulla 30.9/13.4 Left lower Pole medulla 19.2/9.3 PSV/EDV . PSV/EDV . Right lower pole medulla EDR .43 . Left lower pole medulla EDR .49 . Right lower pole medulla R.I. .57 . Left lower pole medulla R.I. .51 . Lower Pole Cortex 17.8/9.0 PSV/EDV. Lower Pole Cortx 22.5/8.2 PSV/EDV. Right lower pole cortex EDR .51 . Left lower pole cortex EDR .37 . Right lower pole cortex R.I. .49 . Left lower pole cortex R.I. .63 . Right Renal Hilar Left Renal Hilar Right Hilar avg 44.1/17.8 PSV/EDV. LT Hilar avg 46.6/17.0 PSV/EDV . Right hilar acceleration time 60 Left hilar acceleration time 30 m/sec. m/sec. Right Renal Dimensions Left Renal Dimensions Right kidney size 11.3 cm . Left kidney size 11.4 cm . Right cortical dimension 1.43 cm . Left cortical dimension 1.44 cm . Aorta Proximal abdominal aorta 1.75 x 1.83 cm . Proximal abdominal aorta peak systolic velocity is 112.4 cm/sec . Distal abdominal aorta 1.3 x 1.37 cm . Distal abdominal aorta peak systolic velocity is 110.2 cm/sec . Normal renal veins bilat. VL/Renal Artery Duplex Ultrasound Interpretation Summary Maximal aortic diameter 1.75 x 1.83 cm which is normal. Less than 60% stenosis right renal artery Maintained right renal length of 11.3 cm Less than 60% stenosis left renal artery Maintained left renal length 11.4 cm Ordering Physician: Cb Lucero Referring Physician: Cb Lucero Performed By: Amadou Ingram RVLizandro
== END 2021-06-01 23:59 | disposition home or self-care (01) ==
LOC: CVS 08:02
PROVIDERS: PCP Family Medicine; Referring Provider Internal Medicine Cardiovascular Disease; Visit Provider Internal Medicine Cardiovascular Disease
DX: R03.0 Elevated blood-pressure reading, without diagnosis of hypertension (principal)
CPT/HCPCS: 93306; 93975

== ENCOUNTER → 2022-05-24 | Outpatient (CLI) | payer OTHER, SELFPAY ==
[2022-05-24 10:42] LABS: Hemoglobin A1c 5.7 % (3.8-5.6)
[2022-05-24 10:44] LABS: Anion Gap 5 (5-15); BUN 15 mg/dL (7-18); BUN/Creat Ratio 10.9 RATIO (10-20); Calcium,Total 9.5 mg/dL (8.5-10.1); Chloride 103 mmol/L (98-107); Cholesterol 180 mg/dL (200); Creatinine, Serum 1.38 mg/dL (0.70-1.30); EST Glomerular Filtration Rate 57 mL/min (>60); Est Glom Filt Rate - Afr Amer 69 mL/min (>60); Glucose 108 mg/dL (74-106); High Density Lipoprotein 52 mg/dL; PSA,Total - Annual Screen 6.83 ng/mL (0.00-4.00); Potassium 4.7 mmol/L (3.5-5.1); Sodium Level 139 mmol/L (136-145); Triglycerides 183 mg/dL; Uric Acid 6.3 mg/dL (3.5-7.2); Very Low Density Lipoprotein 37 mg/dL (5-40)
== END | disposition home or self-care (01) ==
LOC: LAB 08:53
PROVIDERS: PCP Family Medicine; Referring Provider Family Medicine; Visit Provider Family Medicine
DX: E78.5 Hyperlipidemia, unspecified (principal); R73.01 Impaired fasting glucose; N18.9 Chronic kidney disease, unspecified; E66.9 Obesity, unspecified; Z80.42 Family history of malignant neoplasm of prostate
CPT/HCPCS: 36415; 80048; 80061; 83036; 84153; 84443; 84550; G0103

== ENCOUNTER → 2023-01-18 | Outpatient (CLI) | payer OTHER, SELFPAY ==
[2023-01-18 08:39] LABS: Hemoglobin A1c 5.8 % (3.8-5.6)
[2023-01-18 08:40] LABS: ALB/GLOB Ratio 1.2 RATIO (0.9-2.4); AST(SGOT) 28 U/L (15-37); Alanine Aminotransfer ALT/SGPT 57 U/L (16-61); Albumin, Serum 3.9 g/dL (3.2-5.0); Alkaline Phosphatase 65 U/L (45-117); Anion Gap 2 (5-15); BUN 12 mg/dL (7-18); BUN/Creat Ratio 8.3 RATIO (10-20); Calcium,Total 9.1 mg/dL (8.5-10.1); Chloride 105 mmol/L (98-107); Cholesterol 179 mg/dL (200); Creatinine, Serum 1.44 mg/dL (0.70-1.30); EST Glomerular Filtration Rate 54 mL/min (>60); Est Glom Filt Rate - Afr Amer 65 mL/min (>60); Globulin 3.2 g/dL (2.2-4.2); Glucose 107 mg/dL (74-106); High Density Lipoprotein 49 mg/dL; Protein, Total 7.1 g/dL (6.4-8.2); Sodium Level 139 mmol/L (136-145); Thyroid Stim Hormone (TSH) 1.99 uIU/mL (0.358-3.74); Triglycerides 215 mg/dL; Uric Acid 7.6 mg/dL (3.5-7.2); Very Low Density Lipoprotein 43 mg/dL (5-40)
== END | disposition home or self-care (01) ==
PROVIDERS: PCP Family Medicine; Referring Provider Family Medicine; Visit Provider Family Medicine
DX: R73.01 Impaired fasting glucose (principal); E78.5 Hyperlipidemia, unspecified; N18.9 Chronic kidney disease, unspecified; E66.9 Obesity, unspecified; K76.0 Fatty (change of) liver, not elsewhere classified; Z80.42 Family history of malignant neoplasm of prostate
CPT/HCPCS: 36415; 80053; 80061; 83036; 84153; 84443; 84550

== ENCOUNTER → 2023-02-10 | Outpatient (CLI) | payer OTHER, SELFPAY ==
--- NOTE | 2023-02-10 13:21 | MRI_ITS ---
STUDY: MR PELVIS WITH AND WITHOUT CONTRAST (PROSTATE) REASON FOR EXAM: Male, 57 years old. Elevated PSA TECHNIQUE: Standardized multiparametric prostate MRI with T1, T2, DWI/ADC sequences were obtained in 3 orthogonal planes, and dynamic contrast enhancement sequences. 22ml clariscan contrast material was administered intravenously for the contrast portion of the examination. Post contrast imaging limited given lack of dynamic images. COMPARISON: None. FINDINGS: The prostate volume measures 25 mm3. The contours of the prostate gland are slightly lobulated. There is minimal mass effect on the bladder base. The transition zone is heterogenous. PI-RADS DWI score 1 - No abnormality (normal) on ADC or high b-value DWI. PI-RADS T2W score 2 - A mostly encapsulated nodule OR a homogeneous circumscribed nodule without encapsulation (atypical nodule) or a homogeneous mildly hypointense area between nodules.. No obvious abnormal contrast enhancement. The peripheral zone is homogenous. PI-RADS DWI score 1 - No abnormality (normal) on ADC or high b-value DWI. PI-RADS T2W score 1 - Uniformaly hyperintense (normal). No obvious abnormal contrast enhancement. The seminal vesicles demonstrate normal margins and T2 signal pattern. No mass lesion or invasion depicted. The rectoprostatic angles are normal. Mild circumferential wall thickening of the urinary bladder may be artifactual due to incomplete distention. Fat-containing bilateral inguinal hernias. The vascular structures of the are normal. The visualized hollow viscus structures are normal. No bone marrow edema or mass lesion depicted. MRI/Pelvis W/WO Contrast IMPRESSION: 1. PIRADS v2.1 2019 -- 2 - Low (clinically significant cancer is unlikely). 2. No pelvic sidewall or iliac chain adenopathy/mass. Electronically Signed: Ori Keating MD (Brooks) at 15:48 EST Reading Location ID and State: , Service support ,
== END | disposition home or self-care (01) ==
LOC: MRI 13:15
PROVIDERS: PCP Family Medicine; Referring Provider Urology; Visit Provider Urology
DX: N40.1 Benign prostatic hyperplasia with lower urinary tract symptoms (principal); R97.20 Elevated prostate specific antigen [PSA]
CPT/HCPCS: 72197; A9575

== ENCOUNTER → 2023-02-13 | Outpatient (CLI) | payer OTHER, SELFPAY ==
--- NOTE | 2023-02-13 | IMM_PTH ---
PATIENT: RADHA CACERES LOC: [facility] U#:[id number] AGE/SX: 57/M ROOM: RE02/13/[address]: Dr. Garrett Major MD : [id number] BED: DIS: 02/13/2023 SPEC #: [id number] RECD: 02/15/23 14:26 STATUS: SAYDA REQ #: [id number] MAHIN: 02/13/23 00:[address]: Garrett Major DEPT: IMMUNOHISTOCHEMISTRY RECD BY: Nohelia Stokes ENTERED: 02/15/23 14:27 SP TYPE: IMMUNO OTHR DR: Dr. Nehal Moore MD Tissues: A - PROSTATE RIGHT C - PROSTATE RIGHT F - PROSTATE LEFT Procedures: 34BE12 (add) P40 (add) 34BE12 (initial) PHYSICIAN & INSTITUTION [place] [id number] SPECIMEN INFORMATION: Tissue Source: A - Right apex, C - Right base, F - Left base Clinical Info: Elevated PSA Specimen Number: [id number] A, C & F CPT code: 47471, 55310 x5 METHODOLOGY: Deparaffinized sections of prefer/formalin-fixed tissue or PAP/DQ stained slides are incubated with monoclonal/polyclonal antibodies/oligonucleotide probes. Localization is made via biotin free immunoperoxidase method. Appropriate controls are performed and reacted as expected. Results on target cell population are indicated in the following table: RESULTS: ANTIBODY / CLONE RESULT Block A P40 (BC28) negative 34BE12 (34BE12) negative Block C P40 (BC28) negative 34BE12 (34BE12) negative Block F P40 (BC28) positive 34BE12 (34BE12) positive These tests were developed and their performance characteristics determined by [facility]. They may not have been cleared or approved by the U.S. Food and Drug Administration. The FDA has determined that such clearance or approval is not necessary. The above immunohistochemical/dualISH markers are ordered and reviewed by the Pathologist. INTERPRETATION: A. Right prostate, apex, core biopsy: Adenocarcinoma. C. Right prostate, base, core biopsy: Adenocarcinoma. F. Left prostate, base, core biopsy: Benign prostatic tissue. AM:pepe 02/16/2023
--- NOTE | 2023-02-13 14:00 | PROSBIL_PTH ---
PATIENT: RADHA CACERES LOC: [facility] U#:[id number] AGE/SX: 57/M ROOM: RE02/13/[address]: Dr. Garrett Major MD : 1965 BED: DIS: 02/13/2023 SPEC #: [id number] RECD: 02/13/23 15:37 STATUS: SAYDA REPako #: [id number] MAHIN: 02/13/23 14:[address]: Garrett Major DEPT: SURGICAL PATHOLOGY RECD BY: Floridalma Arellano ENTERED: 02/14/23 08:32 SP TYPE: PROST BX REBECA DR: Dr. Nehal Moore MD Tissues: A - PROSTATE RIGHT B - PROSTATE RIGHT C - PROSTATE RIGHT D - PROSTATE LEFT E - PROSTATE LEFT F - PROSTATE LEFT Procedures: PROSTATE BX HEADER OPERATION: Prostate biopsy PRE-OP DIAGNOSIS: Elevated PSA TISSUE SUBMITTED: A - Right apex, B - Right mid, C - Right base, D - Left apex, E - Left mid, F - Left base MICROSCOPIC DIAGNOSIS A. Right prostate, apex, core biopsy: Adenocarcinoma. Sirisha grade: 9 (4+5) Cores involved: 1 out of 1 core Tissue involved: 50% Greatest tumor length: 5.0 millimeters See comment. B. Right prostate, mid, core biopsy: Adenocarcinoma. Sturgis grade: 9 (4+5) Cores involved: 2 out of 2 cores Tissue involved: 50% Greatest tumor length: 7.0 millimeters (discontinuous) C. Right prostate, base, core biopsy: Adenocarcinoma. Sturgis grade: 9 (5+4) Cores involved: 2 out of 2 cores Tissue involved: 20% Greatest tumor length: 2.5 millimeters See comment. D. Left prostate, apex, core biopsy: Benign prostatic tissue. E. Left prostate, mid, core biopsy: Benign prostatic tissue. F. Left prostate, base, core biopsy: Benign prostatic tissue. See comment. AM:pepe 02/15/2023 COMMENT A, C & F. Immunohistochemistry ([id number]) supports the above diagnosis. Case has been reviewed in consultation with Dr. Holland who concurs with the above diagnosis. IDC:SJ MICROSCOPIC DESCRIPTION Slides are reviewed. GROSS DESCRIPTION A - Received is one container designated prostate, right apex. The specimen consists of one elongated fragment of light thurman-white soft tissue measuring 1.5 cm in length and 0.1 cm in diameter. The specimen is totally submitted in one cassette. B - Received is one container designated prostate, right mid. The specimen consists of two elongated fragments of light thurman-white soft tissue each measuring 2.0 cm in length and 0.1 cm in diameter. The specimen is totally submitted in one cassette. C - Received is one container designated prostate, right base. The specimen consists of two elongated fragments of light thurman-white soft tissue each measuring 1.5 cm in length and 0.1 cm in diameter. The specimen is totally submitted in one cassette. D - Received is one container designated prostate, left apex. The specimen consists of one elongated fragment of light thurman-white soft tissue measuring 1.1 cm in length and 0.1 cm in diameter. The specimen is totally submitted in one cassette. E - Received is one container designated prostate, left mid. The specimen consists of two elongated fragments of light thurman-white soft tissue measuring 1.0 and 1.5 cm in length and 0.1 cm in diameter. The specimen is totally submitted in one cassette. F - Received is one container designated prostate, left base. The specimen consists of two elongated fragments of light thurman-white soft tissue measuring 0.8 and 1.5 cm in length and 0.1 cm in diameter. The specimen is totally submitted in one cassette. / SJ:rg 02/14/2023 TC:0 [facility]: [id number] [phone]
== END | disposition home or self-care (01) ==
LOC: LABSPEC 15:45
PROVIDERS: PCP Family Medicine; Referring Provider Urology; Visit Provider Urology
DX: R97.20 Elevated prostate specific antigen [PSA] (principal)
CPT/HCPCS: 88305; 88341; 88342; G0416

== ENCOUNTER → 2023-02-17 | Outpatient (CLI) | payer OTHER, SELFPAY ==
--- NOTE | 2023-02-17 07:31 | CT_ITS ---
STUDY: CT ABDOMEN AND PELVIS WITH CONTRAST REASON FOR EXAM: Male, 57 years old. MALIGNANT NEOPLASM OF PROSTATE RADIATION DOSAGE (If Supplied By Facility): CTDIvol = ( 20.12 ) mGy, DLP = ( 1685.38 ) mGycm TECHNIQUE: Transaxial images were obtained from the dome of the diaphragm to the symphysis pubis without oral contrast. Oral and amp; IV Readi-CAT and amp; 100mL Isovue-300 was administered. Sagittal and coronal images were reconstructed. Individualized dose optimization techniques were used for this CT. COMPARISON: Comparison is made with prior examination dated December 16, 2016. FINDINGS: The visualized lung bases are unremarkable. Mild degree of coronary artery calcification. There is decreased attenuation of the liver consistent with steatosis. Normal gallbladder and extrahepatic biliary system. Normal spleen. Normal pancreas. Stable enlargement of the left adrenal gland suggestive of a small adenoma. Nonobstructive punctate calculus in the anterior lower pole calyx of the right kidney. 1 mm nonobstructive calculus in the posterior midpole calyx of the left kidney. Normal visualized stomach. Normal small intestine. Prior surgical anastomosis at the level of the sigmoid colon. The appendix is visualized and appears normal. Normal abdominal aorta. Normal inferior vena cava. Normal retroperitoneum. Mild degree of bilateral wall thickening although the bladder is not completely distended at this time. There are prostatic calcifications. Small bilateral inguinal hernias containing fat. Minimal anterior spondylosis at the L3-L4 level. 1 cm benign-appearing hypodensity in the posterior right iliac bone. On prior examination, this appeared to contain some fat. CT/Abdomen/Pelvis WITH Contrast IMPRESSION: Fatty infiltration of the liver. Prominence of the left adrenal gland which is stable as with a small adenoma. Prostatic calcifications. Electronically Signed: Seth Baker MD at 8:53 EST ,
--- NOTE | 2023-02-17 07:31 | NM_ITS ---
CLINICAL: Male, 57 years old. MALIGNANT NEOPLASM OF PROSTATE WHOLE BODY NUCLEAR BONE SCAN TECHNIQUE: Following the IV administration of 27 mCi of Tc MDP, whole body bone imaging was performed with a gamma camera following a three hour delay. COMPARISON STUDIES : NM - None. CR - Not available for review at this time. CT - prior CT scan done earlier today. MR - Not available for review at this time. US - Not available for review at this time. FINDINGS: There is a normal concentration of radiopharmaceutical throughout the axial and appendicular skeletal system without either a focal decrease or increase in uptake. NM/Bone Scan Whole Body IMPRESSION: Normal whole body nuclear bone scan. Electronically Signed: Seth Baker MD at 12:36 EST ,
== END | disposition home or self-care (01) ==
LOC: CT 07:30
PROVIDERS: PCP Family Medicine; Referring Provider Urology; Visit Provider Urology
DX: C61 Malignant neoplasm of prostate (principal)
CPT/HCPCS: 74177; 78306; A9503; Q9967

== ENCOUNTER → 2023-03-21 | Outpatient (CLI) | payer OTHER, SELFPAY ==
--- NOTE | 2023-03-21 09:00 | PET_ITS ---
EXAMINATION: PSMA PET/CT INDICATIONS: A 57-year-old male with history of primary prostate carcinoma presenting for initial staging examination. COMPARISON: CT of the abdomen and pelvis report dated 02/17/23, radionuclide bone scintigraphy report dated 02/17/23. INDEX LESION SIZE PROMISE SCORE SUV INTERPRETATION Prostate gland 12.6 mm 2 19.83 Fulfills quantitative criteria for viable neoplasm. TECHNIQUE: Following the intravenous administration of 9.56 mCi of PSMA-Pylarify via the right antecubital fossa, image acquisitions of the head, neck, chest, abdomen and pelvis to the level of the mid thigh at 73 minutes post-tracer distribution reveal: The examination was interpreted using the EANM (Rachid et al., Journal of Nuclear Medicine Molecular Imaging 44:1622, 2017) and PROMISE (Dav et al., Journal of Nuclear Medicine 59:469, 2018) interpretive criteria. HEIGHT: 70 inches. WEIGHT: 245 lbs. PSMA expression score PROMISE criteria: High (3): SUV ? parotid-salivary gland, intermediate (2): SUV ? liver, low (1): > blood pool, < liver, (0): < blood pool. SUV reference values: Parotid glands: 32.23 Normal liver parenchyma: 8.4 Blood pool: FINDINGS: Head/Neck: Symmetric tracer concentration is defined in the bilateral parotid and submandibular glands. Physiologic uptake is noted in the nasal cavity. There is no evidence of abnormal increased tracer concentration within the context of the cranial vault. CHEST: There is no evidence of abnormal increased radiopharmaceutical within the context of the bilateral hemithorax pulmonary parenchyma, mediastinal structures and right-left thoracic perihilum. Pertinent chest CT findings are as follows. Atherosclerotic calcification is defined in the thoracic aorta without evidence of dilatation, aneurysm formation. Coronary arterial calcification is observed. Mediastinal and bilateral axillary soft tissue densities are ametabolic. There are no parenchymal densities-nodules defined in the right and left hemithorax with quantitatively significant increased radiopharmaceutical concentration. Abdomen/Pelvis: Facilitated uptake is defined in the prostate gland to the right of midline involving the mid portion to base. The calculated maximum standard uptake value is 19.83. The PROMISE score is 2. The maximum axial diameter of the metabolic, morphologic abnormality is 12.6 mm. Physiologic tracer distribution is defined in the hepatic and splenic parenchyma, the bilateral renal units, the visualized intestinal tract, and urinary bladder. The abdomen and pelvis CT findings are as follows. There is atherosclerotic calcification defined in the abdominal aorta without evidence of dilatation-aneurysm formation. Pelvic arterial calcification is observed. Postsurgical change is defined in the lower pelvic mesentery. Calcifications are manifest within the prostate gland. Skeletal: Pertinent skeletal CT findings are as follows. Degenerative changes defined in the cervical, thoracic and lumbar spine demonstrate no evidence of glucose hypermetabolism. There is no visualized sclerotic-lytic changes manifest on review of the appendicular-axial skeletal structures. PET/PET/CT Tumor Base -Thigh Init IMPRESSION: 1. ABNORMAL EXAMINATION INDICATIVE OF MALIGNANT-VIABLE NEOPLASM. 2. Increased radiopharmaceutical concentration manifest in the prostate gland to the right of the midline fulfills quantitative criteria for malignant transformation. (Dav et al., Journal of Nuclear Medicine 59:469, 2018) Electronic Signature Grnat Camara D.O. Accurate Quantification of SUVs and standardized PROMISE scores for this report are calculated using the exclusive [employer], ([place]. Patent No. [id number] [phone] [phone] [place] patent [phone] ). Standardization and correction of the FDG SUV metric exclusively available with [employer] intellectual property, allow for vendor non-specific objective quantitative sequential FDG PET-CT comparison and otherwise unobtainable optimization of the sensitivity and specificity of the examination. [email or web address] Electronically Signed: Grant Camara DO at 21:30 EST ,
== END | disposition home or self-care (01) ==
LOC: ONC 08:45
PROVIDERS: PCP Family Medicine; Referring Provider Urology; Visit Provider Urology
DX: C61 Malignant neoplasm of prostate (principal)
CPT/HCPCS: 78815; A9595

== ENCOUNTER → 2023-06-30 | Outpatient (CLI) | payer OTHER, SELFPAY ==
[2023-06-30 11:25] LABS: PSA,Total- Diagnostic < 0.01 ng/mL (0.0-4.0)
== END | disposition home or self-care (01) ==
LOC: LAB 09:28
PROVIDERS: PCP Family Medicine
DX: C61 Malignant neoplasm of prostate (principal)
CPT/HCPCS: 36415; 84153

== ENCOUNTER → 2023-09-25 | Outpatient (CLI) | payer OTHER, SELFPAY ==
[2023-09-25 07:56] LABS: PSA,Total- Diagnostic 0.01 ng/mL (0.0-4.0)
== END | disposition home or self-care (01) ==
LOC: LAB 06:50
PROVIDERS: PCP Family Medicine; Referring Provider Urology; Visit Provider Urology
DX: C61 Malignant neoplasm of prostate (principal); N39.3 Stress incontinence (female) (male); N52.31 Erectile dysfunction following radical prostatectomy
CPT/HCPCS: 36415; 84153

== ENCOUNTER → 2023-12-25 | Outpatient (CLI) | payer OTHER, SELFPAY ==
[2023-12-25 11:38] LABS: PSA,Total- Diagnostic 0.03 ng/mL (0.0-4.0)
== END | disposition home or self-care (01) ==
LOC: LAB 09:38
PROVIDERS: PCP Family Medicine; Referring Provider Urology; Visit Provider Urology
DX: C61 Malignant neoplasm of prostate (principal); N39.3 Stress incontinence (female) (male); N52.31 Erectile dysfunction following radical prostatectomy
CPT/HCPCS: 36415; 84153

== ENCOUNTER → 2024-02-21 | Outpatient (CLI) | payer OTHER, SELFPAY ==
[2024-02-21 07:34] LABS: Absolute Lymphocyte Count 1.98 X10^3/uL (0.83-4.51); Absolute Neutrophil Count 5.4 X10^3/uL (2.0-7.7); Basophil# 0.07 X10^3/uL; Basophil% 0.8 % (0-1); Eosinophils% 3.4 % (0-5); Hematocrit 50.1 % (40-54); Lymphocyte # 1.98 X10^3/ul (0.83-4.51); Lymphocyte % 22.8 % (19-41); Mean Corp Hgb Conc 33.9 g/dL (32-36); Mean Corpuscular Hgb 29.7 pg (27.0-32.0); Mean Corpuscular Volume 87.6 fL (80-94); Mean Platelet Vol. 9.8 fl (6.2-12.0); Monocyte# 0.91 X10^3/uL; Monocyte% 10.5 % (0-10); NRBC Flagged by Analyzer 0 % (0-5); Platelet Count 257 K/mm3 (150-450); RBC Distribution Width CV 13.7 % (11.6-14.6); RBC Distribution Width SD 43.7 fl (35.1-43.9); Red Blood Count 5.72 M/mm3 (4.6-6.2); White Blood Count 8.7 K/mm3 (4.4-11.0)
[2024-02-21 08:00] LABS: ALB/GLOB Ratio 1.1 RATIO (0.9-2.4); AST(SGOT) 25 U/L (15-37); Alanine Aminotransfer ALT/SGPT 74 U/L (16-61); Albumin, Serum 3.9 g/dL (3.2-5.0); Alkaline Phosphatase 61 U/L (45-117); Anion Gap 6 (5-15); BUN 12 mg/dL (7-18); BUN/Creat Ratio 9.1 RATIO (10-20); Calcium,Total 9.3 mg/dL (8.5-10.1); Chloride 105 mmol/L (98-107); Cholesterol 281 mg/dL (200); Creatinine, Serum 1.32 mg/dL (0.70-1.30); EST Glomerular Filtration Rate 59 mL/min (>60); Est Glom Filt Rate - Afr Amer 72 mL/min (>60); Globulin 3.4 g/dL (2.2-4.2); Glucose 113 mg/dL (74-106); High Density Lipoprotein 44 mg/dL; Potassium 4.4 mmol/L (3.5-5.1); Protein, Total 7.3 g/dL (6.4-8.2); Sodium Level 138 mmol/L (136-145); Triglycerides 260 mg/dL; Uric Acid 6.9 mg/dL (3.5-7.2); Very Low Density Lipoprotein 52 mg/dL (5-40)
[2024-02-21 10:41] LABS: Hemoglobin A1c 5.7 % (3.8-5.6)
== END | disposition home or self-care (01) ==
LOC: LAB 07:21
PROVIDERS: PCP Family Medicine; Referring Provider Family Medicine; Visit Provider Family Medicine
DX: N18.9 Chronic kidney disease, unspecified (principal); R73.01 Impaired fasting glucose; E78.5 Hyperlipidemia, unspecified; E66.9 Obesity, unspecified; K76.0 Fatty (change of) liver, not elsewhere classified
CPT/HCPCS: 36415; 80053; 80061; 83036; 84443; 84550; 85025

== ENCOUNTER → 2024-03-26 | Outpatient (CLI) | payer OTHER, SELFPAY ==
--- NOTE | 2024-03-26 08:03 | MRI_ITS ---
EXAMINATION: MR Prostate WO/W Contrast COMPARISON: 02/10/2023 CLINICAL HISTORY: 58 yo M with biochemical recurrence status post prostatectomy TECHNIQUE: Standard prostate MR protocol was used before and after administration of 22 cc of IV Clariscan. FINDINGS: Multiparametric MR evaluation: Status post prostatectomy. No T2 hypointense, enhancing or diffusion restricting tissue seen. Lymph nodes: No lymphadenopathy in the field of view. Bones: No suspicious lesions in the field of view. MRI/Pelvis W/WO Contrast IMPRESSION: No evidence of recurrent disease in the pelvis. No lymphadenopathy. No suspicious bone lesions. If PSA level is high, a PSMA PET-CT may be beneficial. Electronically Signed: Tonny Huff MD at 8:26 EST ,
== END | disposition home or self-care (01) ==
PROVIDERS: PCP Family Medicine; Referring Provider Student in an Organized Health Care Education/Training Program; Visit Provider Student in an Organized Health Care Education/Training Program
DX: C61 Malignant neoplasm of prostate (principal); R97.21 Rising PSA following treatment for malignant neoplasm of prostate

== ENCOUNTER 2025-01-19 07:47 | Emergency (ER) | payer OTHER, SELFPAY ==
[2025-01-19 07:47] VITALS: BP 155/86; PULSE 76; RESP 16; TEMP 36.3; O2SAT 95; BMI 37.4
--- NOTE | 2025-01-19 08:34 | ED.VIS.LOWEX ---
HPI History of Present Illness Chief Complaint: Lower Extremity Injury Informant: patient and spouse/S.O. Narrative Narrative: Patient is a 59-year-old male with a history of gout and stage 2 CKD presenting with left knee pain. - Reports left leg pain since Monday night, worsening significantly last night. - Describes pain as throbbing and different from previous gout episodes, noting it is not localized to the joint as usual. - Denies known trauma or injury to the knee. No fevers/chills or systemic symptoms. - Pain exacerbated by bending the knee and WBing, but seems more lateral than anterior. - No significant swelling observed, but reports soreness in the area. - Recent episode of suspected gout in the elbow earlier this week, which resolved without pharmacologic treatment, used tart ramírez juice, which has helped but discomfort not resolved. - Resumed allopurinol 1 tablet daily since onset of R elbow symptoms after discontinuing it a long time ago. - Denies taking NSAIDs or other pain medications. - Strong family history of blood clots but he has never had any. [facility] Medical History Erectile dysfunction after radical prostatectomy Stress incontinence, male Prostate cancer GERD (gastroesophageal reflux disease) Kidney disease Hypertriglyceridemia Gout Seasonal allergies Hay fever Stomach ulcer Obesity (BMI 30.0-34.9) Diverticulosis Adrenal mass, left Steatosis of liver Nephrolithiasis Chronic renal failure, stage 2 (mild) Hyperlipidemia Home Medications ?Medication ?Instructions ?Recorded ?Last Taken ?Type aspirin 81 mg tablet,delayed 81 mg PO DAILY 07/28/20 Unknown History release (Adult Aspirin Regimen) multivitamin 1 tab PO DAILY 07/28/20 Unknown History turmeric root extract 500 mg 1,000 mg PO DAILY 07/28/20 Unknown History capsule pitavastatin calcium 2 mg tablet 2 mg PO DAILY 04/29/22 Unknown History (Livalo) elderberry fruit 350 mg capsule mg PO 01/03/24 Unknown History tadalafil 5 mg tablet (Cialis) 5 mg PO QDAY 01/03/24 Unknown History allopurinol 100 mg tablet 100 mg PO QDAY PRN GOUT 01/19/24 Unknown History prednisone 10 mg tablet 10 mg PO UD #42 tabs 01/19/25 Unknown Rx Allergy/AdvReac Type Severity Reaction Status Date / Time Penicillins Allergy Severe Anaphylaxis Verified 01/19/25 07:49 Qzzluum-Kts-Icy Reductase AdvReac myalgias Verified 01/19/25 07:49 Inhibitor (Wndsupu-UNQ-JtM Reductase Inhibitor) Family History Grandfather Blood clot in vein Myocardial infarction Heart disease Father Myocardial infarction Heart disease Hypercholesterolemia CVA (cerebral vascular accident) Severe allergy Prostate cancer CAD (coronary artery disease), Onset Age: 70 Mother Hypertension Hypercholesterolemia Sister Hypertension Aunt CAD (coronary artery disease), Onset Age: 80 Surgical History History of prostatectomy (03/28/23) Hx of prostate biopsy History of colonoscopy History of partial colectomy (2016) Hx of tonsillectomy H/O lithotripsy History of appendectomy Social History Smoking Status: Never smoker alcohol intake: current alcohol intake frequency: holidays/special occasions only substance use type: does not use what type of physical activity do you participate in: walking frequency: daily ROS ROS ED Constitutional Constitutional ED: Denies chills or fever(s) Cardiovascular Cardiovascular: Denies chest pain Respiratory/Chest Respiratory/Chest: Denies dyspnea Musculoskeletal Musculoskeletal: Reports extremity pain; Denies neck pain Integumentary Denies Abrasions, rash or wounds Neurologic Neurologic: Denies paresthesias or weakness EXAM Physical Exam Const Vital Signs: 01/19/25 07:47 Temperature 97.4 F L Temperature Source Temporal Pulse Rate 76 Respiratory Rate 16 Blood Pressure 155/86 H Blood Pressure Mean 109 Pulse Ox 95 Oxygen Delivery Method Room Air Positive well nourished and well developed General Appearance ED: well developed and NAD Neck full ROM and supple Resp normal respiratory effort Back/Spine normal ROM and normal to inspection Extremity Extremity Narrative: No significant swelling in the left leg; pain with knee flexion; no edema in the lower leg. No calf tenderness. There is some lateral left popliteal tenderness including the fibular head and the distal aspect of the IT band. He has pain with flexion but is able to fully. There is no excessive erythema or warmth and there is no significant effusion. All compartments of the lower leg and the thigh are soft and nondistended. No rashes. Mild swelling at the right olecranon process without significant tenderness full range of motion of the elbow without limitation. No excessive erythema or warmth. Neuro oriented x3, no focal motor deficits and no sensory deficits noted Sensorium / Orientation: alert Psych mental status grossly normal and thought process normal Skin no wounds Rashes: no rashes MDM MDM MDM Narrative Medical decision making narrative: Assessment: The patient is a 59-year-old male with PMH of chronic kidney disease stage 2 and long-standing gout presenting for acute left knee pain. Pain began Monday night and worsened last night; no trauma. Exam: full but painful range of motion, tenderness at fibular head and distal IT band, no effusion, erythema, warmth, edema, popliteal or calf tenderness. Family history of venous thrombosis noted, but lack of swelling makes DVT unlikely. No systemic signs or joint immobility to suggest septic arthritis. Recent restart of allopurinol likely helped worsen precipitated flare. Given clinical picture, acute gouty arthritis is most likely; muscular/tendinous strain possible, but would not be harmed by treating acute gouty arthritis; DVT and septic arthritis are low likelihood based on history and exam. Plan: - Administered oral prednisone in ED for gout flare. - Administered single oral dose colchicine for analgesia and provided FRANK wrap. - Instructed patient to hold allopurinol until symptoms fully resolve, then restart for prophylaxis. - Advised avoidance of NSAIDs due to CKD. - Discussed pain control options; patient declined opioids, will call if needed for prescription. - Provided return precautions for fever, worsening pain, new swelling, or failure to improve. - Discharged home in stable condition. Discharge Plan Triage Chief Complaint: Lower Extremity Injury ED Provider: Eric Turner Dx/Rx/DC Orders Clinical Impression: Acute gouty arthritis, Chronic renal failure, stage 2 (mild), Acute pain of left knee Instructions: Treating Gout Attacks, ED Gout Prescriptions: New prednisone 10 mg tablet 10 mg PO UD Qty: 42 0RF Rx Instructions: Take 4 tablets daily for 6 days, then 3 daily for 3 days, then 2 daily for 3 days, then 1 a day for 3 days No Action multivitamin Tablet 1 tab PO DAILY turmeric root extract 500 mg capsule 1,000 mg PO DAILY aspirin [Adult Aspirin Regimen] 81 mg tablet,delayed release (DR/EC) 81 mg PO DAILY allopurinol 100 mg tablet 100 mg PO QDAY PRN (Reason: GOUT) Livalo 2 mg tablet 2 mg PO DAILY tadalafil [Cialis] 5 mg tablet 5 mg PO QDAY elderberry fruit 350 mg capsule PO Primary Care Provider: Nehal Moore Referrals: Nehal Moore MD [Primary Care Provider, Family Practice] - 3-5 Days if not improving Activity Restrictions/Additional Instructions: - Start the prednisone course as prescribed to reduce inflammation in your knee; you should notice some improvement within 1?2 days. (Start Rx tomorrow 01/20) - Stop allopurinol until after this flare has fully resolved, then resume to help prevent future attacks. - Avoid NSAIDs (for example, ibuprofen) because of your stage 2 kidney disease. - Watch for any new fever, increased pain, redness, swelling, or if your symptoms worsen despite the prednisone; stop the medication and come back for evaluation right away. - If you need more pain relief or have questions about additional prescriptions, call and we can arrange it. Print Language: Bulgarian Disposition Disposition: Home, Self Care
--- OUTSIDE RECORDS SUMMARY | 2025-01-19 08:40 | XMS RPT_ITS | CCD ---
Author Organization [facility] Care Team Providers Care Guidance Secretary Name Role Phone Dr. Renato Rider Primary Care Provider [phone] Dr. Renato Rider Referring Provider Dr. Cb Lucero Attending Provider [phone] Dr. Jan Lora Attending Provider Dr. Renato Rider Primary Care Provider Dr. Renato Rider Referring Provider Danyel HAIRSTON, JEFERSON Hdez Attending Provider Corona Moore MDnah Primary Care Provider JEREMIE RILEY Attending Unavailable JEREMIE RILEY Admitting Unavailable AREDEL, NEHAL Primary Care Unavailable MIEDEL, NEHAL Primary Care Unavailable Martir Whittington Attending Unavailable Martir Whittington Referring Unavailable Miedel, Nehal Primary Care Unavailable Jeremie Riley Referring Unavailable Miedel, Nehal Primary Care Unavailable Martir Whittington Attending Unavailable Jacinta Cisneros Attending Unavailable Yesseniaedel, Nehal Primary Care Unavailable Renato Rider Referring Unavailable Miedel, Nehal Primary Care Unavailable Sha Owens Attending Unavailable Martir Whittington Attending Unavailable Miedel, Nehal Primary Care Unavailable Miedel, Nehal Referring Unavailable Miedel, Nehal Primary Care Unavailable Yesseniael, Nehal Attending Unavailable Yesseniael, Nehal Referring Unavailable Martir Whittington Referring Unavailable Miedel, Nehal Primary Care Unavailable Martir Whittington Attending Unavailable Jeremie Riley Attending Unavailable Jeremie Riley Referring Unavailable Miedel, Nehal Primary Care Unavailable Allergies Allergy Classification Reported Allergen(s) Allergy Type Date of Onset Reaction(s) Facility (9 sources) Penicillins; Translations: [PENICILLINS] Allergy to substance 05-17-2021 Anaphylaxis [facility] (7 sources) Tdwrtmh-Eml-Ojs Reductase Inhibitor; Translations: [Hsxqxoj-Tvj-Yyv Reductase Inhibitor] Propensity to adverse reactions 05-17-2021 myalgias [facility] (2 sources) Non-steroidal anti-inflammator y agent; Translations: [NSAIDS (NON-STEROIDAL ANTI-INFLAMMATOR Y DRUG)] Propensity to adverse reactions 03-09-2023 [facility] Medications Current Medications Medication Drug Class(es) Dates Sig (Normalized) Sig (Original) allopurinol 100 mg oral tablet (7 sources) Xanthine Oxidase Inhibitor Start: 07-28-2020 take 100 mg by mouth once daily Allopurinol Active 100 MG PO DAILY July 28, 2020 12:00am amLODIPine 10 mg oral tablet (17 sources) Dihydropyridine Calcium Channel [place] Start: 05-23-2022 take 10 mg by mouth once daily Amlodipine Active 10 MG PO DAILY May 23, 2022 9:22am Start: 05-17-2021 End: 05-23-2022 take 5 mg by mouth once daily Amlodipine Discontinued 5 MG PO DAILY April 29, 2022 11:21am May 23, 2022 9:24am aspirin 81 mg delayed release oral tablet (13 sources) Platelet Aggregation Inhibitor, Nonsteroidal Anti-inflammatory Drug Start: 07-28-2020 take 1 tablet by mouth once daily Aspirin (Adult Aspirin Regimen) 81 mg tablet,delayed release (DR/EC) Active 81 MG PO DAILY July 28, 2020 12:00am Start: 08-21-2013 End: 05-11-2016 take 81 mg by mouth once daily Aspirin Discontinued 81 MG PO DAILY@0800 August 21, 2013 12:00am May 11, 2016 3:32pm coenzyme Q10 (Vitaline CoQ10 ) (6 sources) Start: 07-28-2020 coenzyme Q10 ( Vitaline CoQ10) Active 100 MG PO DAILY July 28, 2020 2:28pm Start: 07-28-2020 coenzyme Q10 ( Vitaline CoQ10) Active 100 MG PO DAILY May 17th, 2021 11:00pm Start: 07-28-2020 coenzyme Q10 ( Vitaline CoQ10) Active 100 MG PO DAILY July 28, 2020 12:00am indomethacin 50 mg oral capsule (18 sources) Nonsteroidal Anti-inflammatory Drug Start: 05-14-2021 End: 05-17-2021 take 50 mg by mouth three times daily Indomethacin Active 50 MG PO THREE TIMES A DAY May 17, 2021 4:37pm Start: 07-12-2017 End: 07-28-2020 take 1 capsule by mouth three times daily at mealtime indomethacin 50 mg capsule Discontinued 50 MG PO THREE TIMES A DAY July 12, 2017 12:00am July 28, 2020 2:27pm administer with food or milk Multivitamin preparation (12 sources) Start: 07-28-2020 take 1 tablet by mouth once daily Multivitamin Active 1 TABLET PO DAILY July 28, 2020 2:27pm Start: 07-28-2020 take 1 tablet by michael th once daily Multivitamin Active 1 TABLET PO DAILY July 27, 2020 11:00pm Start: 07-28-2020 take 1 tablet by michael th once daily Multivitamin Active 1 TABLET PO DAILY July 28, 2020 12:00am Start: 12-16-2016 End: 07-12-2017 Multivitamin Discontinued 1 EACH PO DAILY December 16, 2016 1:18pm July 12, 2017 9:30am Start: 12-16-2016 End: 07-12-2017 Multivitamin Discontinued 1 EACH PO DAILY December 15, 2016 11:00pm July 12, 2017 8:30am Start: 12-16-2016 End: 07-12-2017 Multivitamin Discontinued 1 EACH PO DAILY December 16, 2016 12:00am July 12, 2017 9:30am multivitamin with minerals tablet (1 source) take 1 tablet by mouth once daily multivitamin with minerals tablet Take 1 tablet by mouth 1 (one) time each day. 0 Active pitavastatin calcium 2 mg oral tablet (12 sources) HMG-CoA Reductase Inhibitor Start: 3 take 1 tablet by mouth once daily Pitavastatin Calcium (Livalo) 2 mg tablet Active 2 MG PO DAILY April 29, 2022 1:00am Start: 07-10-2018 End: 07-28-2020 Pitavastatin Calcium (Livalo ) 2 MG tablet Discontinued 1 MG PO DAILY July 10, 2018 12:00am July 28, 2020 2:27pm Turmeric Root Extract (6 sources) Start: 07-28-2020 take 1000 mg by mouth once daily Turmeric Root Extract Active 1000 MG PO DAILY July 28, 2020 2:28pm Start: 07-28-2020 take 1000 mg by mouth once ame ly Turmeric Root Extract Active 1000 MG PO DAILY July 27, 2020 11:00pm Start: 07-28-2020 take 1000 mg by mouth once ame ly Turmeric Root Extract Active 1000 MG PO DAILY July 28, 2020 12:00am Completed/Discontinued Medications Medication Drug Class(es) Dates Sig (Normalized) Sig (Original) acetaminophen 325 mg oral tablet (1 source) Start: 03-28-2023 End: 03-28-2023 acetaminophen (TYLENOL) tablet 975 mg acetaminophen 325 mg / HYDROcodone bitartrate 5 mg oral tablet (6 sources) Opioid Agonist Start: 01-30-2017 End: 02-24-2017 take 1 tablet by mouth every six hours as needed Hydrocodone-Acetami nophen Discontinued 1 TABLET PO EVERY 6 HOURS NEEDED January 30, 2017 1:00am February 24, 2017 10:15am benzonatate 100 mg oral capsule (6 sources) Non-narcotic Antitussive Start: 07-10-2018 End: 07-28-2020 take 200 mg by mouth three times daily as needed Benzonatate Discontinued 200 MG PO 3 TIMES DAILY NEEDED July 10, 2018 12:00am July 28, 2020 2:27pm calcium chloride 0.0014 meq/ml / potassium chloride 0.004 meq/ml / sodium chloride 0.103 meq/ml / sodium lactate 0.028 meq/ml injectable solution (1 source) Start: 03-28-2023 End: 03-28-2023 lactated Ringer's infusion Cholestol Gold (6 sources) Start: 05-08-2016 End: 05-11-2016 take 3 tablets by mouth twice daily Cholestol Gold Discontinued 3 TABLET PO TWICE A DAY May 08, 2016 12:53pm May 11, 2016 3:30pm Start: 05-08-2016 End: 05-11-2016 take 3 tablets by mouth twice daily Cholestol Gold Discontinued 3 TABLET PO TWICE A DAY May 08, 2016 12:00am May 11, 2016 2:30pm Start: 05-08-2016 End: 05-11-2016 take 3 tablets by mouth twice daily Cholestol Gold Discontinued 3 TABLET PO TWICE A DAY May 08, 2016 1:00am May 11, 2016 3:30pm 0.4 ml enoxaparin sodium 100 mg/ml prefilled syringe (1 source) Low Molecular Weight Heparin Start: 03-28-2023 End: 03-28-2023 enoxaparin (LOVENOX) injection 40 mg ezetimibe 10 mg oral tablet (6 sources) Dietary Cholesterol Absorption Inhibitor Start: 01-15-2021 End: 04-29-2022 take 10 mg by mouth once daily Ezetimibe Discontinued 10 MG PO DAILY January 15, 2021 12:00am April 29, 2022 11:16am Lactobacillus Combination No.4 (6 sources) Start: 01-25-2017 End: 07-12-2017 Lactobacillus Combination No.4 Discontinued 1 EACH PO TWICE A DAY January 25, 2017 11:07am July 12, 2017 9:30am Start: 01-25-2017 End: 07-12-2017 Lactobacillus Combination No .4 Discontinued 1 EACH PO TWICE A DAY January 25, 2017 12:00am July 12, 2017 8:30am Start: 01-25-2017 End: 07-12-2017 Lactobacillus Combination No .4 Discontinued 1 EACH PO TWICE A DAY January 25, 2017 1:00am July 12, 2017 9:30am levoFLOXacin 250 mg oral tablet (6 sources) Quinolone Antimicrobial Start: 01-30-2017 End: 01-30-2017 take 250 mg by mouth once daily Levofloxacin Discontinued 250 MG PO DAILY January 30, 2017 1:00am January 30, 2017 1:42pm 10 ml lidocaine hydrochloride 10 mg/ml injection (1 source) Antiarrhythmic, Amide Local Anesthetic Start: 03-28-2023 End: 03-28-2023 lidocaine (PF) (XYLOCAINE-MPF) 1 % injection 0.2 mL metroNIDAZOLE 500 mg oral tablet (6 sources) Nitroimidazole Antimicrobial Start: 05-11-2016 End: 05-11-2016 Metronidazole (Flagyl) 500 MG tablet Discontinued 500 MG PO ONE TIME May 11, 2016 1:00am May 11, 2016 3:23pm 2 tablets at 6,8, and 10 neomycin sulfate 500 mg oral tablet (12 sources) Aminoglycoside Antibacterial Start: 01-30-2017 End: 01-30-2017 take 2 tablets by mouth three times daily Neomycin Discontinued 2 TABLET PO THREE TIMES A DAY January 30, 2017 1:00am January 30, 2017 1:42pm Start: 05-11-2016 End: 05-11-2016 Neomycin Discontinued 1000 M G PO ONE TIME May 11, 2016 1:00am May 11, 2016 3:23pm 2 TABLETS AT 6,8, AND 10 [place] 9-Cti-Sas-Fish Oil (Fish Oil 1,600 Mg/5 Ml Liquid) 1,600 MG/5 ML Liquid (6 sources) Start: 05-08-2016 End: 05-11-2016 take 1600 mg by mouth once daily [place] 4-Wax-Wcm-Fish Oil (Fish Oil 1,600 Mg/5 Ml Liquid) 1,600 MG/5 ML Liquid Discontinued 1600 MG PO DAILY May 08, 2016 12:53pm May 11, 2016 3:27pm Start: 05-08-2016 End: 05-11-2016 take 1600 mg by mouth once daily [place] 7-Npe-Xeo-Fish Oil (Fish Oil 1,600 Mg/5 Ml Liquid) 1,600 MG/5 ML Liquid Discontinued 1600 MG PO DAILY May 08, 2016 12:00am May 11, 2016 2:27pm Start: 05-08-2016 End: 05-11-2016 take 1600 mg by mouth once daily [place] 2-Bfy-Pko-Fish Oil (Fish Oil 1,600 Mg/5 Ml Liquid) 1,600 MG/5 ML Liquid Discontinued 1600 MG PO DAILY May 08, 2016 1:00am May 11, 2016 3:27pm [place]-3 Fatty Acids-Fish Oil (Fish Oil 1,000 Mg Capsule) 1 EACH capsule (6 sources) Start: 12-16-2016 End: 01-30-2017 [place]-3 Fatty Acids-Fish Oil (Fish Oil 1,000 Mg Capsule) 1 EACH capsule Discontinued 1 EACH PO DAILY December 16, 2016 1:18pm January 30, 2017 1:42pm Start: 12-16-2016 End: 01-30-2017 [place]-3 Fatty Acids-Fish Oil (Fish Oil 1,000 Mg Capsule) 1 EACH capsule Discontinued 1 EACH PO DAILY December 15, 2016 11:00pm January 30, 2017 12:42pm Start: 12-16-2016 End: 01-30-2017 [place]-3 Fatty Acids-Fish Oil (Fish Oil 1,000 Mg Capsule) 1 EACH capsule Discontinued 1 EACH PO DAILY December 16, 2016 12:00am January 30, 2017 1:42pm oxybutynin chloride 5 mg oral tablet (1 source) Cholinergic Muscarinic Antagonist Start: 03-28-2023 End: 03-28-2023 oxyBUTYnin (DITROPAN) tablet 10 mg oxyCODONE hydrochloride 5 mg oral tablet (1 source) Opioid Agonist Start: 03-28-2023 End: 03-28-2023 oxyCODONE (ROXICODONE) immediate release tablet 5 mg simvastatin 5 mg oral tablet (6 sources) HMG-CoA Reductase Inhibitor Start: 07-28-2020 End: 01-15-2021 take 5 mg by mouth once daily Simvastatin Discontinued 5 MG PO DAILY July 28, 2020 12:00am January 15, 2021 8:56am traMADol hydrochloride 50 mg oral tablet (6 sources) Opioid Agonist Start: 05-11-2016 End: 05-11-2016 take 50 mg by mouth every four hours as needed Tramadol Discontinued 50 MG PO EVERY 4 HOURS NEEDED May 11, 2016 3:24pm May 11, 2016 3:30pm Problems Problem Classification Problem Date Documented Date Episodic/Chronic Calculus of urinary tract (6 sources) Kidney stone; Translations: [Calculus of kidney] 05-17-2021 Episodic Cancer of prostate (6 sources) Malignant tumor of prostate; Translations: [Malignant neoplasm of prostate] Onset: 03-28-2023 03-28-2023 Chronic Chronic kidney disease (7 sources) Chronic kidney disease stage 2; Translations: [Chronic kidney disease, stage 2 (mild)] Onset: 04-01-2024 02-24-2017 Chronic Conditions associated with dizziness or vertigo (6 sources) Lightheadedness; Translations: [Dizziness and giddiness] 05-17-2021 Episodic Disorders of lipid metabolism (15 sources) Hypertriglyceridemia; Translations: [Pure hyperglyceridemia] Onset: 03-09-2023 Chronic Diverticulosis and diverticulitis (18 sources) Diverticula of intestine; Translations: [Diverticulosis of intestine, part unspecified, without perforation or abscess without bleeding] 05-17-2021 Chronic Esophageal disorders (6 sources) Gastroesophageal reflux disease; Translations: [Gastro-esophageal reflux disease without esophagitis] 03-07-2022 Chronic Essential hypertension (1 source) Essential (primary) hypertension; Translations: [Essential (primary) hypertension] Onset: 03-09-2023 Chronic Fluid and electrolyte disorders (6 sources) Dehydration; Translations: [Dehydration] 05-17-2021 Episodic Gout and other crystal arthropathies (7 sources) Gout; Translations: [Gout, unspecified] Onset: 03-09-2023 05-17-2021 Chronic Headache; including migraine (6 sources) Headache; Translations: [Headache] 05-17-2021 Episodic Intestinal infection (6 sources) Viral gastroenteritis due to Baxley-like agent; Translations: [Acute gastroenteropathy due to Baxley agent] 05-17-2021 Episodic Malaise and fatigue (6 sources) Asthenia; Translations: [Weakness] 05-22-2021 Episodic Nausea and vomiting (6 sources) Intractable nausea and vomiting; Translations: [Nausea with vomiting, unspecified] 05-17-2021 Episodic Nonspecific chest pain (6 sources) Chest pain; Translations: [Chest pain, unspecified] 05-17-2021 Episodic Other circulatory disease (6 sources) Elevated blood-pressure reading without diagnosis of hypertension; Translations: [Elevated blood-pressure reading, without diagnosis of hypertension] 05-17-2021 Episodic Other circulatory disease (2 sources) Elevated blood-pressure reading, without diagnosis of hypertension; Translations: [Elevated blood pressure reading without diagnosis of hypertension] Episodic Other connective tissue disease (6 sources) Pain in hallux; Translations: [Pain in left toe(s)] 05-17-2021 Episodic Other diseases of kidney and ureters (6 sources) Kidney disease; Translations: [Disorder of kidney and ureter, unspecified] 05-17-2021 Episodic Other endocrine disorders (6 sources) Adrenal mass; Translations: [Other specified disorders of adrenal gland] 05-17-2021 Chronic Other liver diseases (6 sources) Steatosis of liver; Translations: [Fatty (change of) liver, not elsewhere classified] 05-17-2021 Chronic Other nutritional; endocrine; and metabolic disorders (6 sources) Obese class I; Translations: [Obesity, unspecified] 02-24-2017 Chronic Other screening for suspected conditions (not mental disorders or infectious disease) (2 sources) Rising PSA following treatment for malignant neoplasm of prostate; Translations: [Rising PSA following treatment for malignant neoplasm of prostate] Onset: 01-15-2024 Episodic Septicemia (except in labor) (6 sources) Sepsis; Translations: [Sepsis, unspecified organism] 05-17-2021 Episodic Results Test Name Value Interpretation Reference Range Facility PSA,Total- Diagnosticon 09-10 PSA, DIAGNOSTIC 0.05 ng/mL Normal 0.00-4.00 [facility] Comment on above: Result Comment: This test was performed using the [employer] tPSA method. Measured values of a patient??sample can vary depending on the testing procedure used. PSA values determined on patient samples by different testing procedures cannot be used interchangeably. If there is a change in PSA assays while monitoring therapy, sequential testing should be performed to confirm baseline values. Performed By: #### L [id number] #### [facility] [address] [place], [address] Radiation Oncology Visiton 0 07-02-[address] [facility] [address] [place] [address] OFFICE VISIT Date of Service: 07/02/24 0900 MR#: [id number] Acct: [id number] Name: GRANT THURSTON Rep #: [id number] : 1965 From: Martir Whittington DO Age/Sex: 58/M Location: [facility] Status: Signed Intake Vital Signs 01/19/24 08:24 07/02/24 09:00 Height 5 ft 10 in 5 ft 10 in Weight: 271 lb 6 oz BMI 38.9 BP 134/86 H Blood Pressure Location Rt brachial Position Sitting Respiration 16 Pulse 63 Pulse Source Monitor Temp 97.7 F L Temperature Source Temporal Artery Pulse Oximetry (%) 97 Oxygen Delivery Method room air Intake Visit Reasons: 3 MONTH F/U PROSTATE, PSA WEEK PRIOR Is patient in pain?: No Allergies Penicillins Allergy (Severe, Verified 07/02/24 09:02) Anaphylaxis Qttebzv-WQV-XeQ Reductase Inhibitor Adverse Reaction (Verified 07/02/24 09:02) myalgias PFSH PFSH Medical History Erectile dysfunction after radical prostatectomy Stress incontinence, male Prostate cancer GERD (gastroesophageal reflux disease) Kidney disease Hypertriglyceridemia Gout Seasonal allergies Hay fever Stomach ulcer Obesity (BMI 30.0-34.9) Diverticulosis Adrenal mass, left Steatosis of liver Nephrolithiasis Chronic renal failure, stage 2 (mild) Hyperlipidemia Allergy/AdvReac Type Severity Reaction Status Date / Time Penicillins Allergy Severe Anaphylaxis Verified 07/02/24 09:02 Rinylql-XEW-DiU Reductase AdvReac myalgias Verified 07/02/24 09:02 Inhibitor Family History Grandfather Blood clot in vein Myocardial infarction Heart disease Father Myocardial infarction Heart disease Hypercholesterolemia CVA (cerebral vascular accident) Severe allergy Prostate cancer CAD (coronary artery disease), Onset Age: 70 Mother Hypertension Hypercholesterolemia Sister Hypertension Aunt CAD (coronary artery disease), Onset Age: 80 Surgical History History of prostatectomy (03/28/23) Hx of prostate biopsy History of colonoscopy History of partial colectomy (2016) Hx of tonsillectomy H/O lithotripsy History of appendectomy Social History Smoking Status: Never smoker alcohol intake: current alcohol intake frequency: holidays/special occasions only substance use type: does not use what type of physical activity do you participate in: walking frequency: daily Diagnosis: Grant Thurston is a 58-year-old male diagnosed with 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 History of Present Illness: 02/10/2023: Patient completed pelvis MRI with and without contrast.??? This demonstrated a PI-RADS 2 lesion in the transition zone and no other evidence of disease, no adenopathy. 03/21/2023: Patient completed PSMA PET scan.??? This demonstrated increased radiopharmaceutical concentration manifest the prostate gland to the right of midline for filling quantitative criteria for malignant transformation.??? No other abnormalities are noted. 03/28/2023: completed RP.??? Pathology demonstrated Sirisha 4+5 adenocarcinoma.??? Margins are negative.??? 5 lymph nodes were obtained which did not contain any metastatic disease.??? There is no evidence of extra prostate extension, urinary bladder neck invasion, seminal vesicle invasion.??? pT2 pN0 Decipher score of 0.56 02/27/2024: Patient completed PSMA PET scan.??? This demonstrated no evidence of disease. 03/26/2024: Patient completed MRI prostate with and without contrast.??? This demonstrated no evidence of disease in the pelvis, no adenopathy, no suspicious bone lesions. Radiation Treatment History: No prior history of radiation therapy. No pacemaker. No diagnosis of radiosensitizing comorbidity. Interval History: Patient presents for follow-up. He was initially seen in February due to having concern for very low but rising PSA indicating possible approach meant of biochemical recurrence, various options were discussed he ended up getting an ADT injection and PSA went undetectable, his imaging demonstrated no evidence of metastatic disease and he decided to hold off and now is planning just continued follow-up PSAs to see if he actually reaches the point of failure requiring early salvage treatment. He is doing very well and denies any clinical changes. He does have some fatigue and hot flashes related to his ADT but this is improving. He denies having any (more content not included)... Normal [facility] PSA,Total- Diagn[facility]icon - PSA, DIAGNOSTIC < 0.02 Normal 0.00-4.00 [facility] Comment on above: Result Comment: This test was performed using the [employer] tPSA method. Measured values of a patient??sample can vary depending on the testing procedure used. PSA values determined on patient samples by different testing procedures cannot be used interchangeably. If there is a change in PSA assays while monitoring therapy, sequential testing should be performed to confirm baseline values. Performed By: #### L [id number] #### [facility] [place], [address] PSA,Total- Diagnosticon - PSA, DIAGNOSTIC < 0.01 Normal 0.0-4.0 [facility] Comment on above: Result Comment: This test was performed using the TPSA assay method for the [employer] system. Values obtained with different assay methods cannot be used interchangably. When changing PSA assays in the course of monitoring a patient, additional sequential testing should be carried out to confirm baseline values. Performed By: #### L [id number] #### [facility] [address] [place], [place], [address] Pelvis W/WO Contraston 03-26 Pelvis W/WO Contrast [facility] [address] [place] [address] Pelvis W/WO Contrast MR#: [id number] Acct: [id number] Name: GRANT THURSTON Rep #: [id number] : 1965 M 58 From: Tonny guerra MD PCP: Dr. Nehal Moore MD Status: REG CLI Study: Pelvis W/WO Contrast Date of Exam: 03/26/24 Exam# [id number] Ordering Dr: Martir Whittington DO [id number] EXAMINATION: MR Prostate WO/W Contrast COMPARISON: 02/10/2023 CLINICAL HISTORY: 58 yo M with biochemical recurrence status post prostatectomy TECHNIQUE: Standard prostate MR protocol was used before and after administration of 22 cc of IV Clariscan. FINDINGS: Multiparametric MR evaluation: Status post prostatectomy. No T2 hypointense, enhancing or diffusion restricting tissue seen. Lymph nodes: No lymphadenopathy in the field of view. Bones: No suspicious lesions in the field of view. MRI/Pelvis W/WO Contrast IMPRESSION: No evidence of recurrent disease in the pelvis. No lymphadenopathy. No suspicious bone lesions. If PSA level is high, a PSMA PET-CT may be beneficial. Electronically Signed: Tonny Huff MD at 8:26 EST , CC: Dr. Nehal Moore MD; Dr. 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 Nehal Moore MD Status: REG RCR Study: PET/CT Tumor Base -Thigh Subs Date of Exam: Exam# [id number] Ordering Dr: Martir Whittington DO [id number] EXAMINATION: F [address] HISTORY: 58-year-old male with history of primary prostate carcinoma presenting for restaging examination. COMPARISON EXAMINATION: Previous F [address] study dated 03/21/2023 TECHNIQUE: Following the intravenous administration of 9.33 mCi of F 18 Pylarify PSMA- via the left antecubital fossa, image acquisitions of the head, neck, chest, abdomen and pelvis contemporaneously interpreted with the CT of neck, chest, abdomen and pelvis dated 02/27/2024 to the level of the mid thigh at 70 minutes post-tracer distribution via cortical registration and previous Pylarify PET CT study dated 03/21/2023 reveal: The examination was interpreted using the EANM (Fanti et al., Journal of Nuclear Medicine Molecular Imaging 44:1622, 2017) and PROMISE (Eimargarita et al., Journal of Nuclear Medicine 59:469, 2018) interpretive criteria. HEIGHT: 70 WEIGHT: 268 PSMA expression score PROMISE criteria: High (3): SUV ? parotid-salivary gland, intermediate (2): SUV ? liver, low (1): > blood pool, < liver, (0): < blood pool. SUV reference values: Parotid glands 32.88/32.23 Normal liver parenchyma 6.8/8.4 Blood pool 2.5 FINDINGS: Head/Neck: Symmetric radiopharmaceutical is defined in the right and left parotid and submandibular glands. Physiologic uptake is identified in the nasal cavity. There is no evidence of abnormal increased tracer uptake within the cranial vault. CHEST: There is no scintigraphic evidence of abnormal increased tracer concentration within the context of the bilateral hemithorax pulmonary parenchyma, mediastinum and thoracic perihilum, the pleural interface bilaterally. Pertinent chest CT findings are as follows. Compared to the examination dated 03/21/2023, there is no significant interval change. Abdomen/Pelvis: The previously identified abnormal increase in tracer concentration noted in the prostate gland on the examination dated 03/21/2023, is not apparent on the current examination. Normal physiologic uptake is noted in the hepatic and splenic parenchyma. There is symmetric demonstration of the right and left kidneys, normal uptake in the urinary bladder and visualized intestinal tract. Review of CT of the abdomen and pelvis reveals no significant interval change. SKELETAL: Meticulous attention paid to the axial skeletal structures demonstrates no evidence of abnormal increased tracer uptake. PET/PET/CT Tumor Base -Thigh Subs IMPRESSION: 1. NEGATIVE EXAMINATION. There is no scintigraphic evidence of viable neoplastic disease. 2. The previously defined prostate gland abnormality is not apparent on the current examination. 3. Overall compared to the previous F [address] study dated 03/21/2023, there is current absence of defined viable neoplasm. Electronic Signature Grant Camara D.O. Accurate Quantification of SUVs and standardized PROMISE scores for this report are calculated using the exclusive [employer] Technology, ([place]. Patent No. [id number] [id number] [phone] [id number] [phone] [place] patent [id number] [phone] ). Standardization and correction of the FDG SUV metric exclusively available with [employer] intellectual property, allow for vendor non-specific objective quantitative sequential FDG PET-CT comparison and otherwise unobtainable optimization of the sensitivity and specificity of the examination. [email or web address] Electronically Signed: Grant Camara DO at 9:20 EST , CC: Dr. Nehal Moore MD; Dr. Martir Whittington DO [employer] Machine Operator: Signed Normal [facility] CBC W/Diff, Automatedon 12- Absolute Lymph 1.98 X10 3/uL Normal 0.83-4.51 [facility] Comment on above: Performed By: #### L 500.4050, L501.9520, L100.0100, L500.4100, L501.1400, L501.9985 #### [facility] [address] [place], [address] Absolute Neut 5.4 X10 3/uL Normal 2.0-7.7 [facility] Comment on above: Performed By: #### L 500.4050, L501.9520, L100.0100, L500.4100, L501.1400, L501.9985 #### [facility] [address] [place], [address] Basophils/100 WBC (Bld) 0.8 % Normal 0-1 [facility] Comment on above: Performed By: #### L 500.4050, L501.9520, L100.0100, L500.4100, L501.1400, L501.9985 #### [facility] [address] [place], [address] Eosinophils/100 WBC (Bld) 3.4 % Normal 0-5 [facility] Comment on above: Performed By: #### L 500.4050, L501.9520, L100.0100, L500.4100, L501.1400, L501.9985 #### [facility] [address] [place], [address] Erythrocyte distribution width (RBC) [Ratio] 13.7 % Normal 11.6-14.6 [facility] Comment on above: Performed By: #### L 500.4050, L501.9520, L100.0100, L500.4100, L501.1400, L501.9985 #### [facility] [address] [place], [address] Hematocrit (Bld) [Volume fraction] 50.1 % Normal 40-54 [facility] Comment on above: Performed By: #### L 500.4050, L501.9520, L100.0100, L500.4100, L501.1400, L501.9985 #### [facility] [address] [place], [address] Hemoglobin (Bld) [Mass/Vol] 17.0 g/dL High 13.0-16.5 [facility] Comment on above: Performed By: #### L 500.4050, L501.9520, L100.0100, L500.4100, L501.1400, L501.9985 #### [facility] [address] [facility] [place], [address] IG% 0.500 Normal 0.0-0.9 [facility] Comment on above: Result Comment: IG% - Immature Granulocytes (promyelocytes, myelocytes and metamyelocytes) > 1% indicates that a LEFT SHIFT is Present. Performed By: #### L 500.4050, L501.9520, L100.0100, L500.4100, L501.1400, L501.9985 #### [facility] [address] [facility] [place], [address] Lymphocytes/100 WBC (Bld) 22.8 % Normal 19-41 [facility] Comment on above: Performed By: #### L 500.4050, L501.9520, L100.0100, L500.4100, L501.1400, L501.9985 #### [facility] [address] [place], [address] MCH (RBC) [Entitic mass] 29.7 pg Normal 27.0-32.0 [facility] Comment on above: Performed By: #### L 500.4050, L501.9520, L100.0100, L500.4100, L501.1400, L501.9985 #### [facility] [address] [facility] [place], [address] MCHC (RBC) [Mass/Vol] 33.9 g/dL Normal 32-36 [facility] Comment on above: Performed By: #### L 500.4050, L501.9520, L100.0100, L500.4100, L501.1400, L501.9985 #### [facility] [address] [place], [address] MCV (RBC) [Entitic vol] 87.6 fL Normal 80-94 [facility] Comment on above: Performed By: #### L 500.4050, L501.9520, L100.0100, L500.4100, L501.1400, L501.9985 #### [facility] [address] [place], [address] Monocytes/100 WBC (Bld) 10.5 % High 0-10 [facility] Comment on above: Performed By: #### L 500.4050, L501.9520, L100.0100, L500.4100, L501.1400, L501.9985 #### [facility] [address] [place], [address] Neutrophils/100 WBC (Bld) 62.0 % Normal 47-70 [facility] Comment on above: Performed By: #### L 500.4050, L501.9520, L100.0100, L500.4100, L501.1400, L501.9985 #### [facility] [address] [place], [address] Nucleated RBC (Bld) [#/Vol] 0 10*3/uL Normal 0-5 [facility] Comment on above: Performed By: #### L 500.4050, L501.9520, L100.0100, L500.4100, L501.1400, L501.9985 #### [facility] [address] [place], [address] Platelet mean volume (Bld) [Entitic vol] 9.8 fL Normal 6.2-12.0 [facility] Comment on above: Performed By: #### L 500.4050, L501.9520, L100.0100, L500.4100, L501.1400, L501.9985 #### [facility] [address] [place], [address] Platelets (Bld) [#/Vol] 257 10*3/uL Normal 150-450 [facility] Comment on above: Performed By: #### L 500.4050, L501.9520, L100.0100, L500.4100, L501.1400, L501.9985 #### [facility] [address] [place], [address] RBC (Bld) [#/Vol] 5.72 10*6/uL Normal 4.6-6.[address] [facility] Comment on above: Performed By: #### L 500.4050, L501.9520, L100.0100, L500.4100, L501.1400, L501.9985 #### [facility] [address] [place], [address] RDW SD 43.7 fl Normal 35.1-43.9 [facility] Comment on above: Performed By: #### L 500.4050, L501.9520, L100.0100, L500.4100, L501.1400, L501.9985 #### [facility] [address] [place], [address] WBC (Bld) [#/Vol] 8.7 10*3/uL Normal 4.4-11.0 [facility] Comment on above: Performed By: #### L 500.4050, L501.9520, L100.0100, L500.4100, L501.1400, L501.9985 #### [facility] [address] [place], [address] Comprehensive Metabolic Prof ilon 02-21-2024 Albumin [Mass/Vol] 3.9 g/dL Normal 3.2-5.0 [facility] Comment on above: Performed By: #### L 500.4050, L501.9520, L100.0100, L500.4100, L501.1400, L501.9985 ####[facility] [address] [place], [address] Albumin/Globulin [Mass ratio] 1.1 {ratio} Normal 0.9-2.4 [facility] Comment on above: Performed By: #### L 500.4050, L501.9520, L100.0100, L500.4100, L501.1400, L501.9985 ####[facility] [address] [place], [address] ALK P 61 U/L Normal 45-117 [facility] Comment on above: Performed By: #### L 500.4050, L501.9520, L100.0100, L500.4100, L501.1400, L501.9985 ####[facility] [address] [place], [address] ALT [Catalytic activity/Vol] 74 U/L High 16-61 [facility] Comment on above: Performed By: #### L 500.4050, L501.9520, L100.0100, L500.4100, L501.1400, L501.9985 ####[facility] [address] [place], [address] AST [Catalytic activity/Vol] 25 U/L Normal 15-37 [facility] Comment on above: Performed By: #### L 500.4050, L501.9520, L100.0100, L500.4100, L501.1400, L501.9985 ####[facility] [address] [place], [address] Bilirubin [Mass/Vol] 0.70 mg/dL Normal 0.20-1.00 [facility] Comment on above: Result Comment: For patients on eltrombopag therapy, use of [place] TBIL is not recommended. Performed By: #### L 500.4050, L501.9520, L100.0100, L500.4100, L501.1400, L501.9985 ####[facility] [address] [place], [address] BUN/CRE 9.1 RATIO Low 10-20 [facility] Comment on above: Performed By: #### L 500.4050, L501.9520, L100.0100, L500.4100, L501.1400, L501.9985 ####[facility] [address] [place], [address] CA,Total 9.3 mg/dL Normal 8.5-10.1 [facility] Comment on above: Performed By: #### L 500.4050, L501.9520, L100.0100, L500.4100, L501.1400, L501.9985 ####[facility] [address] [place], [address] Chloride [Moles/Vol] 105 mmol/L Normal 98-107 [facility] Comment on above: Performed By: #### L 500.4050, L501.9520, L100.0100, L500.4100, L501.1400, L501.9985 ####[facility] [address] [place], [address] CO2 [Moles/Vol] 28.0 mmol/L Normal 21.0-32.0 [facility] Comment on above: Performed By: #### L 500.4050, L501.9520, L100.0100, L500.4100, L501.1400, L501.9985 ####[facility] [address] [place], [address] Creatinine [Mass/Vol] 1.32 mg/dL High 0.70-1.30 [facility] Comment on above: Result Comment: The validity of the calculated GFR GFRAA in patients over 70 years has not been determined. Clinical correlation is essential. Performed By: #### L 500.4050, L501.9520, L100.0100, L500.4100, L501.1400, L501.9985 ####[facility] [address] [place], [address] EST GFR - AA 72 mL/min Normal >60 [facility] Comment on above: Result Comment: Afri can Kosovan GFR Calc Performed By: #### L 500.4050, L501.9520, L100.0100, L500.4100, L501.1400, L501.9985 ####[facility] [address] [place], [address] GAP 6 Normal 5-15 [facility] Comment on above: Performed By: #### L 500.4050, L501.9520, L100.0100, L500.4100, L501.1400, L501.9985 ####[facility] [address] [place], [address] GFR/1.73 sq M.predicted among non-blacks MDRD (S/P/Bld) [Vol rate/Area] 59 mL/min/{1.73_m2} Low >60 [facility] Comment on above: Result Comment: Non- GFR Calc Performed By: #### L 500.4050, L501.9520, L100.0100, L500.4100, L501.1400, L501.9985 ####[facility] [address] [place], [address] Globulin (S) [Mass/Vol] 3.4 g/dL Normal 2.2-4.2 [facility] Comment on above: Performed By: #### L 500.4050, L501.9520, L100.0100, L500.4100, L501.1400, L501.9985 ####[facility] [address] [place], [address] Glucose [Mass/Vol] 113 mg/dL High 74-106 [facility] Comment on above: Result Comment: Fast ing Glucose result from 100 to 125 mg/dL suggests IMPAIRED HOMEOSTASIS per A.D.A. criteria. Performed By: #### L 500.4050, L501.9520, L100.0100, L500.4100, L501.1400, L501.9985 ####[facility] [address] [place], [address] Potassium [Moles/Vol] 4.4 mmol/L Normal 3.5-5.1 [facility] Comment on above: Performed By: #### L 500.4050, L501.9520, L100.0100, L500.4100, L501.1400, L501.9985 ####[facility] [address] [place], [address] Sodium [Moles/Vol] 138 mmol/L Normal 136-145 [facility] Comment on above: Performed By: #### L 500.4050, L501.9520, L100.0100, L500.4100, L501.1400, L501.9985 ####[facility] [address] [place], [address] T PROT 7.3 g/dL Normal 6.4-8.2 [facility] Comment on above: Performed By: #### L 500.4050, L501.9520, L100.0100, L500.4100, L501.1400, L501.9985 ####[facility] [address] [place], [address] Urea nitrogen [Mass/Vol] 12 mg/dL Normal 7-18 [facility] Comment on above: Performed By: #### L 500.4050, L501.9520, L100.0100, L500.4100, L501.1400, L501.9985 ####[facility] [address] [place], [address] Hemoglobin A1con 02-21-2024 HbA1c (Bld) [Mass fraction] 5.7 % High 3.8-5.6 [facility] Comment on above: Result Comment: Norm al < 5.7 % Prediabetic 5.7 - 6.4 % Diabetic >or= 6.5 % Please note range changes. Performed By: #### L 500.4050, L501.9520, L100.0100, L500.4100, L501.1400, L501.9985 ####[facility] [address] [place], [address] Lipid Profileon 02-21-2024 Cholesterol [Mass/Vol] 281 mg/dL High 200 [facility] Comment on above: Result Comment: <200 mg/dL Desirable 200-240 mg/dL Borderline >240 mg/dL High Risk Performed By: #### L 500.4050, L501.9520, L100.0100, L500.4100, L501.1400, L501.9985 ####[facility] [address] [place], [address] Cholesterol in HDL [Mass/Vol] 44 mg/dL Normal [facility] Comment on above: Result Comment: The drugs N-Acetylcysteine and Metamizole may falsely depress this assay. Reference Range HDL <40 mg/dL Low HDL Cholesterol HDL >or= 60 mg/dL High HDL Cholesterol Performed By: #### L 500.4050, L501.9520, L100.0100, L500.4100, L501.1400, L501.9985 ####[facility] [address] [place], [address] Cholesterol in LDL [Mass/Vol] 185 mg/dL High 0-130 [facility] Comment on above: Performed By: #### L 500.4050, L501.9520, L100.0100, L500.4100, L501.1400, L501.9985 ####[facility] [address] [place], [place], [phone] Cholesterol in VLDL [Mass/Vol] 52 mg/dL High 5-40 [facility] Comment on above: Performed By: #### L 500.4050, L501.9520, L100.0100, L500.4100, L501.1400, L501.9985 ####[facility] [address] [place], [place], [phone] Triglyceride [Mass/Vol] 260 mg/dL High [facility] Comment on above: Result Comment: The drugs N-Acetylcysteine and Metamizole may falsely depress this assay. Serum Triglycerides Reference Interval Normal <150 mg/dL Borderline high 150 - 199 mg/dL High 200 - 499 mg/dL Very High > or = 500 mg/dL Performed By: #### L 500.4050, L501.9520, L100.0100, L500.4100, L501.1400, L501.9985 ####[facility] [address] [place], [place], [id number] Thyroid Stim Hormone (TSH)on 02-21-2024 TSH 2.290 uIU/mL Normal 0.358-3.740 [facility] Comment on above: Performed By: #### L 500.4050, L501.9520, L100.0100, L500.4100, L501.1400, L501.9985 ####[facility] [address] [place], [place], [phone] Uric Acidon 02-21-2024 URIC 6.9 mg/dL Normal 3.5-7.2 [facility] Comment on above: Result Comment: The drugs N-Acetylcysteine and Metamizole may falsely depress this assay. Performed By: #### L 500.4050, L501.9520, L100.0100, L500.4100, L501.1400, L501.9985 ####[facility] [address] [place], [address] Cardiology Visit Reporton Cardiology Visit Report [facility] [address] [place] [address] OFFICE VISIT Date of Service: 01/19/24 MR#: [id number] Acct: [id number] Name: GRANT THURSTON Rep #: [id number] : 1965 Provider: JFEERSON flores Age/Sex: 58/M Location: [facility] Status: Signed HPI HPI History of Present Illness Details: This is a pleasant 58 year old gentleman who presents to the office for a cardiovascular follow up visit. He has no previous cardiac history who presented to the emergency room on May 14 2021, with chest discomfort, nausea, and just not feeling well. His blood pressure was noted to be markedly elevated with a systolic of 180/91 mmHg. He does have a history of hyperlipidemia, obesity, gout and more recently has been taking a fair amount of indomethacin for exacerbation of his gout. He has been intolerant of statin medications and has been on Zetia. This has recently been discontinued due to increase in gout flare-ups. He does have a family history of coronary disease, he underwent a coronary calcium score in February 2019 which was 74.7. In the emergency room he had complained of some diaphoresis and chest discomfort and his EKG which was done demonstrated normal sinus rhythm with a rate of 79 bpm and no acute changes. He denies chest, arm, jaw, or neck discomfort. He denies palpitations. He denies bilateral lower extremity edema. He denies claudication. He denies shortness of breath with activity, shortness of breath at rest, orthopnea, or PND. He denies chronic cough. He denies significant, sudden weight gain. He denies lightheadedness, dizziness, near-syncope, or syncope. He denies blood in urine, blood in stool, or epistaxis. He denies fever with chills. He denies myalgia. He denies fatigue. His exercise level has remained stable. 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 [employer] Manager Required: No Accompanied by: Is patient in pain?: No Allergies Penicillins Allergy (Severe, Verified 01/19/24 09:11) Anaphylaxis Owixmxh-KHG-IoU Reductase Inhibitor Adverse Reaction (Verified 01/19/24 09:11) myalgias Medications ???Medication ???Instructions ???Recorded ???Confirmed ???Type aspirin 81 mg tablet,delayed 81 mg PO DAILY 07/28/20 01/19/24 History release (Adult Aspirin Regimen) multivitamin 1 tab PO DAILY 07/28/20 01/19/24 History turmeric root extract 500 mg 1,000 mg PO DAILY 07/28/20 01/19/24 History capsule pitavastatin calcium 2 mg tablet 2 mg PO DAILY 04/29/22 01/19/24 History (Livalo) elderberry fruit 350 mg capsule mg PO 01/03/24 01/19/24 History tadalafil 5 mg tablet (Cialis) 5 mg PO QDAY 01/03/24 01/19/24 History allopurinol 100 mg tablet 100 mg PO QDAY PRN 01/19/24 01/19/24 History Ejection fraction %: 60 Have you fallen in the past year?: No PFSH Medical History Erectile dysfunction after radical prostatectomy Stress incontinence, male Prostate cancer GERD (gastroesophageal reflux disease) Kidney disease Hypertriglyceridemia Gout Seasonal allergies Hay fever Stomach ulcer Obesity (BMI 30.0-34.9) Diverticulosis Adrenal mass, left Steatosis of liver Nephrolithiasis Chronic renal failure, stage 2 (mild) Hyperlipidemia Surgical History History of prostatectomy (03/28/23) Hx of prostate biopsy History of colonoscopy History of partial colectomy (2016) Hx of tonsillectomy H/O lithotripsy History of appendectomy Family History Grandfather Blood clot in vein Myocardial infarction Heart disease Father Myocardial infarction Heart disease Hypercholesterolemia CVA (cerebral vascular accident) Severe allergy Prostate cancer CAD (coronary artery disease), Onset Age: 70 Mother Hypertension Hypercholesterolemia Sister Hypertension Aunt CAD (coronary artery disease), Onset Age: 80 Social History Smoking Status: Never smoker alcohol intake: current alcohol intake frequency: holidays/special occasions only substance use type: does not use what type of physical activity do you participate in: walking frequency: daily ROS Const Const: Negative for fatigue or weakness Eyes Eyes: Negative for change in vision ENT ENT: Negative for dizziness or balance problems Cardio Chest Pain: No Palpitations: No Edema: None Muscle aches with walking: None Resp (more content not included)... Normal [facility] Radiation Oncology Visiton [address] [facility] [address] [place], [place] [address], [place] [address] OFFICE VISIT Date of Service: 01/08/24 1402 MR#: [id number] Acct: [id number] Name: GRANT THURSTON Rep #: [id number] : 1965 From: Martir Whittington DO Age/Sex: 58/M Location: [facility] Status: Signed Intake Vital Signs 04/29/22 10:18 01/08/24 14:07 Height 5 ft 10 in 5 ft 10 in Weight: 268 lb 9 oz BMI 38.5 BP 134/87 H Blood Pressure Location Rt brachial Position Sitting Respiration 16 Pulse 70 Pulse Source Monitor Temp 99.1 F Temperature Source Temporal Artery Pulse Oximetry (%) 92 Oxygen Delivery Method room air Intake Visit Reasons: CONSULT - PROSTATE Is patient in pain?: No Allergies Penicillins Allergy (Severe, Verified 01/08/24 14:05) Anaphylaxis Zrourfw-OMD-YdO Reductase Inhibitor Adverse Reaction (Verified 01/08/24 14:05) myalgias Medications ???Medication ???Instructions ???Recorded ???Confirmed ???Type aspirin 81 mg tablet,delayed 81 mg PO DAILY 07/28/20 01/08/24 History release (Adult Aspirin Regimen) multivitamin 1 tab PO DAILY 07/28/20 01/08/24 History turmeric root extract 500 mg 1,000 mg PO DAILY 07/28/20 01/08/24 History capsule pitavastatin calcium 2 mg tablet 2 mg PO DAILY 04/29/22 01/08/24 History (Livalo) amlodipine 10 mg tablet 10 mg PO DAILY #90 tabs 05/23/22 01/08/24 Rx elderberry fruit 350 mg capsule mg PO 01/03/24 01/08/24 History tadalafil 5 mg tablet (Cialis) 5 mg PO QDAY 01/03/24 01/08/24 History allopurinol 100 mg tablet 100 mg PO .prn 01/08/24 01/08/24 History PFSH PFSH Medical History Erectile dysfunction after radical prostatectomy Stress incontinence, male Prostate cancer GERD (gastroesophageal reflux disease) Kidney disease Hypertriglyceridemia Gout Seasonal allergies Hay fever Stomach ulcer Obesity (BMI 30.0-34.9) Diverticulosis Adrenal mass, left Steatosis of liver Nephrolithiasis Chronic renal failure, stage 2 (mild) Hyperlipidemia Home Medications ???Medication ???Instructions ???Recorded ???Last Taken ???Type aspirin 81 mg tablet,delayed 81 mg PO DAILY 07/28/20 Unknown History release (Adult Aspirin Regimen) multivitamin 1 tab PO DAILY 07/28/20 Unknown History turmeric root extract 500 mg 1,000 mg PO DAILY 07/28/20 Unknown History capsule pitavastatin calcium 2 mg tablet 2 mg PO DAILY 04/29/22 Unknown History (Livalo) amlodipine 10 mg tablet 10 mg PO DAILY #90 tabs 05/23/22 Unknown Rx elderberry fruit 350 mg capsule mg PO 01/03/24 Unknown History tadalafil 5 mg tablet (Cialis) 5 mg PO QDAY 01/03/24 Unknown History allopurinol 100 mg tablet 100 mg PO .prn 01/08/24 Unknown History Allergy/AdvReac Type Severity Reaction Status Date / Time Penicillins Allergy Severe Anaphylaxis Verified 01/08/24 14:05 Mpoflnp-PYL-ZjC Reductase AdvReac myalgias Verified 01/08/24 14:05 Inhibitor Family History Grandfather Blood clot in vein Myocardial infarction Heart disease Father Myocardial infarction Heart disease Hypercholesterolemia CVA (cerebral vascular accident) Severe allergy Prostate cancer CAD (coronary artery disease), Onset Age: 70 Mother Hypertension Hypercholesterolemia Sister Hypertension Aunt CAD (coronary artery disease), Onset Age: 80 Surgical History Hx of prostate biopsy History of colonoscopy History of partial colectomy (2017) Hx of tonsillectomy H/O lithotripsy History of appendectomy Social History Smoking Status: Never smoker alcohol intake: current alcohol intake frequency: holidays/special occasions only substance use type: does not use what type of physical activity do you participate in: walking frequency: daily Referring Provider: Jeremie Riley MD Diagnosis: Grant Thurston is a 58-year-old male diagnosed with 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 History of Present Illness: 02/10/2023: Patient completed pelvis MRI with and without contrast.??? This demonstrated a PI-RADS 2 lesion in the transition zone and no other evidence of disease, no adenopathy. 03/21/2023: Patient completed PSMA PET scan.??? This demonstrated increased radiopharmaceutical concentration manifest the prostate gland to the right of midline for filling quantitative criteria for malignant transformation.??? No other abnormalities are noted. 03/28/2023: completed RP.??? Pathology demonstrated Sirisha 4+5 adenocarcinoma.??? Linnea (more content not included)... Normal [facility] PSA,Total- Diagnosticon 10- PSA, DIAGNOSTIC 0.03 ng/mL Normal 0.0-4.0 [facility] Comment on above: Result Comment: This test was performed using the TPSA assay method for the LOFTY chemistry system. Values obtained with different assay methods cannot be used interchangably. When changing PSA assays in the course of monitoring a patient, additional sequential testing should be carried out to confirm baseline values. Performed By: #### L [id number] #### [facility] [address] [place], [address] Basophil percentageon 2023 Basophil percentage < 0.01 ng/mL 0.0-4.0 [facility] Comment on above: This test was perfor med using the TPSA assay method for theLOFTY chemistry system. Values obtained with differentassay methods cannot be used interchangably.When changing PSA assays in the course of monitoring apatient, additional sequential testing should be carriedout to confirm baseline values. Pathology studyon 03-28-2023 Scan Result See Scanned Result Normal [facility] Comment on above: Performed By: #### 1 1526-1 #### [facility] [address] [place] [address] Bacteria Ur Culton 3 Bacteria identified Cx Nom (U) Culture, Urine Status = F Mixed isidro, no uropathogens present. Suggest repeat specimen, if clinically indicated. Normal [facility] Comment on above: Performed By: #### 6 30-4 #### [facility] [address] [place] [address] Basic metabolic 2000 panelon 03-09-2023 Anion gap [Moles/Vol] 6 mmol/L Normal 6-[address] [facility] Comment on above: Performed By: #### 2 4321-2 #### [facility] [address] [place] [address] Calcium [Mass/Vol] 9.5 mg/dL Normal 8.9-10.3 [facility] Comment on above: Performed By: #### 2 4321-2 #### [facility] [address] [place] [address] Chloride [Moles/Vol] 105 mmol/L Normal 98-107 [facility] Comment on above: Performed By: #### 2 4321-2 #### [facility] [address] [place] [address] CO2 [Moles/Vol] 26 mmol/L Normal 22-32 [facility] Comment on above: Performed By: #### 2 4321-2 #### [facility] [address] [place] [address] Creatinine [Mass/Vol] 1.14 mg/dL Normal 0.60-1.[address] [facility] Comment on above: Performed By: #### 2 4321-2 #### [facility] [address] [place] [address] GFR/1.73 sq M.predicted among non-blacks MDRD (S/P/Bld) [Vol rate/Area] 75 mL/min/{1.73_m2} Normal >=60 [facility] Comment on above: Result Comment: Calc ulation based on the?Chronic Kidney Disease Epidemiology Collaboration (CKD-EPI) equation refit?without adjustment for race. Performed By: #### 2 4321-2 #### [facility] [address] [place] [address] Glucose [Mass/Vol] 132 mg/dL High 70-99 [facility] Comment on above: Performed By: #### 2 4321-2 #### [facility] [address] [place] [address] Potassium [Moles/Vol] 3.8 mmol/L Normal 3.6-5.[address] [facility] Comment on above: Performed By: #### 2 4321-2 #### [facility] [address] [place] [address] Sodium [Moles/Vol] 137 mmol/L Normal 136-145 [facility] Comment on above: Performed By: #### 2 4321-2 #### [facility] [address] [place] [address] Urea nitrogen [Mass/Vol] 12 mg/dL Normal 8-20 [facility] Comment on above: Performed By: #### 2 4321-2 #### [facility] [address] [place] [address] Urea nitrogen/Creatinine [Mass ratio] 10.5 mg/mg Low 12.0-20.0 [facility] Comment on above: Performed By: #### 2 4321-2 #### [facility] [address] [place] [address] Blood type and Indirect anti body screen panel (Bld)on 03-09-2023 ABO group Nom (Bld) AB Normal [facility] Comment on above: Performed By: #### 3 4532-2 #### [facility] [address] [place] [address] Rh Type Positive Normal [facility] Comment on above: Performed By: #### 3 4532-2 #### [facility] [address] [place] [address] Hemogram and platelets WO di fferential panel (Bld)on 03-09-2023 Erythrocyte distribution width (RBC) [Ratio] 13.4 % Normal 11.0-14.8 [facility] Comment on above: Performed By: #### 2 4317-0 #### [facility] [address] [place] [address] Hematocrit (Bld) [Volume fraction] 48.8 % Normal 39.0-49.0 [facility] Comment on above: Performed By: #### 2 4317-0 #### [facility] [address] [place] [address] Hemoglobin (Bld) [Mass/Vol] 16.3 g/dL Normal 13.5-17.5 [facility] Comment on above: Performed By: #### 2 4317-0 #### [facility] [address] [place] [address] MCH 28.7 pcg Normal 27.0-34.0 [facility] Comment on above: Performed By: #### 2 4317-0 #### [facility] [address] [place] [address] MCHC (RBC) [Mass/Vol] 33.4 g/dL Normal 30.8-35.[address] [facility] Comment on above: Performed By: #### 2 4317-0 #### [facility] [address] [place] [address] MCV (RBC) [Entitic vol] 86.1 fL Normal 80.0-97.0 [facility] Comment on above: Performed By: #### 2 4317-0 #### [facility] [address] [place] [address] Platelet mean volume (Bld) [Entitic vol] 10.4 fL Normal 6.2-12.1 [facility] Comment on above: Performed By: #### 2 4317-0 #### [facility] [address] [place] [address] Platelets (Bld) [#/Vol] 214 10*3/uL Normal 142-424 [facility] Comment on above: Performed By: #### 2 4317-0 #### [facility] [address] [place] [address] RBC (Bld) [#/Vol] 5.67 10*6/uL Normal 4.30-5.70 [facility] Comment on above: Performed By: #### 2 4317-0 #### [facility] [address] [place] [address] WBC (Bld) [#/Vol] 6.8 10*3/uL Normal 4.6-10.2 [facility] Comment on above: Performed By: #### 2 4317-0 #### [facility] [address] [place] [address] PT Coag (PPP) [Time]on 03-09 aPTT Coag (Bld) [Time] 25.6 s Normal 23.3-35.3 Mo [facility] Comment on above: Order Comment: The r ecommended therapeutic INR range for most cardiac indications is 2.0-3.0 For high intensity therapy (i.e. mechanical heart valves), the recommended range is 2.5-3.5 Performed By: #### 5 902-2 #### [facility] [address] [place] [address] URINALYSIS CHEM ONLYon 03-09 Bilirubin, Urine Negative Normal Negative [facility] Comment on above: Performed By: #### L [id number] #### [facility] [address] [place] [address] Blood, Urine Negative Normal Negative, Trace [facility] Comment on above: Performed By: #### L [id number] #### [facility] [address] [place] [address] Clarity (U) Clear Normal Clear [facility] Comment on above: Performed By: #### L [id number] #### [facility] [address] [place] [address] Color (U) Colorless Abnormal Yellow [facility] Comment on above: Performed By: #### L [id number] #### [facility] [address] [place] [address] Glucose Ql (U) Normal Normal Normal [facility] Comment on above: Performed By: #### L [id number] #### [facility] [address] [place] [address] Ketones Ql (U) Negative Normal Negative [facility] Comment on above: Performed By: #### L [id number] #### [facility] [address] [place] [address] Leukocytes, Urine Negative Normal Negative [facility] Comment on above: Performed By: #### L [id number] #### [facility] [address] [place] [address] Nitrite, Urine Negative Normal Negative [facility] Comment on above: Performed By: #### L [id number] #### [facility] [address] [place] [address] pH (U) 6.0 [pH] Normal 5.0-8.0 [facility] Comment on above: Performed By: #### L [id number] #### [facility] [address] [place] [address] Protein, Urine Negative Normal Negative [facility] Comment on above: Performed By: #### L [id number] #### [facility] [address] [place] [address] Specific [place] Urine 1.007 Normal 1.002-1.030 [facility] Comment on above: Performed By: #### L [id number] #### [facility] [address] [place] [address] Urobilinogen, Urine Normal Normal Normal [facility] Comment on above: Performed By: #### L [id number] #### [facility] [address] [place] [address] Basophil percentageOrdered B y: Nehal Moore on 01-18-2023 Bilirubin [Mass/Vol] 0.70 mg/dL 0.20-1.00 [facility] Comment on above: For patients on eltr ombopag therapy, use of [place] TBIL is not recommended. Chloride [Moles/Vol] 105 mmol/L 98-107 [facility] Cholesterol [Mass/Vol] 179 mg/dL <200 [facility] Comment on above: <200 mg/dL Desirable 200-240 mg/dL Borderline >240 mg/dL High Risk Glucose [Mass/Vol] 107 mg/dL 74-106 [facility] Comment on above: Fasting Glucose resu lt from 100 to 125 mg/dL suggests IMPAIRED HOMEOSTASIS per A.D.A. criteria. Potassium [Moles/Vol] 4.0 mmol/L 3.5-5.1 [facility] Protein [Mass/Vol] 7.1 g/dL 6.4-8.2 [facility] Sodium [Moles/Vol] 139 mmol/L 136-145 [facility] Triglyceride [Mass/Vol] 215 mg/dL <199 [facility] Comment on above: The drugs N-Acetylcy steine and Metamizole may falsely depress this assay.Serum Triglycerides Reference Interval Normal <150 mg/dL Borderline high 150 - 199 mg/dL High 200 - 499 mg/dL Very High > or = 500 mg/dL Laboratory - Chemistry and C hemistry - challengeOrdered By: Nehal Moore on 01-18-2023 ALP [Catalytic activity/Vol] 65 U/L 45-117 [facility] ALT [Catalytic activity/Vol] 57 U/L 16-61 [facility] CO2 [Moles/Vol] 32.0 mmol/L 21.0-32.0 [facility] Globulin (S) [Mass/Vol] 3.2 g/dL 2.2-4.2 [facility] Urea nitrogen/Creatinine [Mass ratio] 8.3 mg/mg 10-20 [facility] No Panel InformationOrdered By: Nehal Moore on 01-18-2023 Estimated GFR (MDRD) Amer 65 mL/min >60 [facility] Comment on above: GFR Calc Estimated GFR (MDRD) Non-Af Amer 54 mL/min >60 [facility] Comment on above: Non- GFR Calc Prostate Specific Antigen Total 10.60 ng/mL 0.0-4.0 [facility] Comment on above: This test was perfor med using the TPSA assay method for [employer] chemistry system. Values obtained with differentassay methods cannot be used interchangably.When changing PSA assays in the course of monitoring apatient, additional sequential testing should be carriedout to confirm baseline values. Thyroid Stimulating Hormone (TSH) 1.99 uIU/mL 0.358-3.74 [facility] Serum or plasma albumin tolu urement (mass/volume)Ordered By: Nehal Moore on 01-18-2023 Albumin [Mass/Vol] 3.9 g/dL 3.2-5.0 [facility] Serum or plasma albumin/glob ulin mass ratioOrdered By: Nehal Moore on 01-18-2023 Albumin/Globulin [Mass ratio] 1.2 {ratio} 0.9-2.4 [facility] Serum or plasma calcium tolu urement (mass/volume)Ordered By: Nehal Moore on 01-18-2023 Calcium [Mass/Vol] 9.1 mg/dL 8.5-10.1 [facility] Serum or plasma cholesterol in HDL measurement (mass/volume)Ordered By: Nehal Moore on 01-18-2023 Cholesterol in HDL [Mass/Vol] 49 mg/dL >40 [facility] Comment on above: The drugs N-Acetylcy steine and Metamizole may falsely depress this assay. Reference Range HDL <40 mg/dL Low HDL Cholesterol HDL >or= 60 mg/dL High HDL Cholesterol Serum or plasma cholesterol in VLDL measurement (mass/volume)Ordered By: Nehal Moore on 01-18-2023 Cholesterol in VLDL [Mass/Vol] 43 mg/dL 5-40 [facility] Serum or plasma creatinine m easurement (mass/volume)Ordered By: Nehal Moore on 01-18-2023 Creatinine [Mass/Vol] 1.44 mg/dL 0.70-1.30 [facility] Comment on above: The validity of the calculated GFR & GFRAA in patients over 70 years has not been determined. Clinical correlation is essential. Serum or plasma low density lipoprotein (LDL) cholesterol measurement (mass/volume)Ordered By: Nehal Moore on 01-18-2023 Cholesterol in LDL [Mass/Vol] 87 mg/dL 0-130 [facility] Serum or plasma urea nitroge n measurement (mass/volume)Ordered By: Nehal Moore on 01-18-2023 Urea nitrogen [Mass/Vol] 12 mg/dL 7-18 [facility] Serum or plasma uric acid me asurement (mass/volume)Ordered By: Nehal Miabdirizak on 01-18-2023 Urate [Mass/Vol] 7.6 mg/dL 3.5-7.2 [facility] Comment on above: The drugs N-Acetylcy steine and Metamizole may falsely depress this assay. Thin prep Papanicolaou smear with manual screeningOrdered By: Nehal Moore on 01-18-2023 Thin prep Papanicolaou smear with manual screening 28 U/L 15-37 [facility] Thin prep Papanicolaou smear with manual screening 2 5-15 [facility] Whole blood hemoglobin A1c/t otal hemoglobin ratio (mass fraction)Ordered By: Nehal Moore on 01-18-2023 HbA1c (Bld) [Mass fraction] 5.8 % 3.8-5.6 [facility] Comment on above: Normal < 5.7 % Predi abetic 5.7 - 6.4 % Diabetic >or= 6.5 % Please note range changes. Basophil percentageOrdered B y: Dr. Longoria on 05-24-2022 Chloride [Moles/Vol] 103 mmol/L 98-107 [facility] Cholesterol [Mass/Vol] 180 mg/dL <200 [facility] Comment on above: <200 mg/dL Desirable 200-240 mg/dL Borderline >240 mg/dL High Risk Glucose [Mass/Vol] 108 mg/dL 74-106 [facility] Comment on above: Fasting Glucose resu lt from 100 to 125 mg/dL suggests IMPAIRED HOMEOSTASIS per A.D.A. criteria. Potassium [Moles/Vol] 4.7 mmol/L 3.5-5.1 [facility] Sodium [Moles/Vol] 139 mmol/L 136-145 [facility] Triglyceride [Mass/Vol] 183 mg/dL <199 [facility] Comment on above: The drugs N-Acetylcy steine and Metamizole may falsely depress this assay.Serum Triglycerides Reference Interval Normal <150 mg/dL Borderline high 150 - 199 mg/dL High 200 - 499 mg/dL Very High > or = 500 mg/dL Laboratory - Chemistry and C hemistry - challengeOrdered By: Dr. Longoria on 05-24-2022 CO2 [Moles/Vol] 31.0 mmol/L 21.0-32.0 [facility] Urea nitrogen/Creatinine [Mass ratio] 10.9 mg/mg 10-20 [facility] No Panel InformationOrdered By: Dr. Longoria on 05-24-2022 Estimated GFR (MDRD) Amer 69 mL/min >60 [facility] Comment on above: GFR Calc Estimated GFR (MDRD) Non-Af Amer 57 mL/min >60 [facility] Comment on above: Non- GFR Calc Prostate Specific Antigen Screen 6.83 ng/mL 0.00-4.00 [facility] Comment on above: This test was perfor med using the TPSA assay method for the[employer] chemistry system. Values obtained with differentassay methods cannot be used interchangably.When changing PSA assays in the course of monitoring apatient, additional sequential testing should be carriedout to confirm baseline values. Thyroid Stimulating Hormone (TSH) 1.70 uIU/mL 0.358-3.74 [facility] Serum or plasma calcium tolu urement (mass/volume)Ordered By: Dr. Longoria on 05-24-2022 Calcium [Mass/Vol] 9.5 mg/dL 8.5-10.1 [facility] Serum or plasma cholesterol in HDL measurement (mass/volume)Ordered By: Dr. Longoria on 05-24-2022 Cholesterol in HDL [Mass/Vol] 52 mg/dL >40 [facility] Comment on above: The drugs N-Acetylcy steine and Metamizole may falsely depress this assay. Reference Range HDL <40 mg/dL Low HDL Cholesterol HDL >or= 60 mg/dL High HDL Cholesterol Serum or plasma cholesterol in VLDL measurement (mass/volume)Ordered By: Dr. Longoria on 05-24-2022 Cholesterol in VLDL [Mass/Vol] 37 mg/dL 5-40 [facility] Serum or plasma creatinine m easurement (mass/volume)Ordered By: Dr. Longoria on 05-24-2022 Creatinine [Mass/Vol] 1.38 mg/dL 0.70-1.30 [facility] Comment on above: The validity of the calculated GFR & GFRAA in patients over 70 years has not been determined. Clinical correlation is essential. Serum or plasma low density lipoprotein (LDL) cholesterol measurement (mass/volume)Ordered By: Dr. Longoria on 05-24-2022 Cholesterol in LDL [Mass/Vol] 91 mg/dL 0-130 [facility] Serum or plasma urea nitroge n measurement (mass/volume)Ordered By: Dr. Longoria on 05-24-2022 Urea nitrogen [Mass/Vol] 15 mg/dL 7-18 [facility] Serum or plasma uric acid me asurement (mass/volume)Ordered By: Dr. Longoria on 05-24-2022 Urate [Mass/Vol] 6.3 mg/dL 3.5-7.2 [facility] Comment on above: The drugs N-Acetylcy steine and Metamizole may falsely depress this assay. Thin prep Papanicolaou smear with manual screeningOrdered By: Dr. Longoria on 05-24-2022 Thin prep Papanicolaou smear with manual screening 5 5-15 [facility] Whole blood hemoglobin A1c/t otal hemoglobin ratio (mass fraction)Ordered By: Dr. Longoria on 05-24-2022 HbA1c (Bld) [Mass fraction] 5.7 % 3.8-5.6 [facility] Comment on above: Normal < 5.7 % Predi abetic 5.7 - 6.4 % Diabetic >or= 6.5 % Please note range changes. Absolute lymphocyte counton 05-14-2021 Lymphocytes Auto (Unsp spec) [#/Vol] 3.02 10*3/uL 0.83-4.51 [facility] Work Phone: Basophil percentageon 2021 Basophils/100 WBC (Bld) 0.6 % 0-1 [facility] Work Phone: Chloride [Moles/Vol] 102 mmol/L 98-107 [facility] Work Phone: Eosinophils/100 WBC (Bld) 1.6 % 0-5 [facility] Work Phone: Glucose [Mass/Vol] 187 mg/dL 74-106 [facility] Work Phone: Comment on above: Fasting Glucose resu lt greater than or equal to 126 mg/dL suggests DIABETES MELLITUS per A.D.A. criteria. Neutrophils (Bld) [#/Vol] 6.2 10*3/uL 2.0-7.7 [facility] Work Phone: Neutrophils/100 WBC (Bld) 58.1 % 47-70 [facility] Work Phone: Potassium [Moles/Vol] 3.7 mmol/L 3.5-5.1 [facility] Work Phone: Comment on above: Slight Hemolysis, Re sult may be falsely increased. Sodium [Moles/Vol] 135 mmol/L 136-145 [facility] Work Phone: WBC (Bld) [#/Vol] 10.6 10*3/uL 4.4-11.[address] [facility] Work Phone: Blood erythrocytes count (nu mber/volume)on 05-14-2021 RBC (Bld) [#/Vol] 5.52 10*6/uL 4.6-6.[address] [facility] Work Phone: Blood hemoglobin measurement (mass/volume)on 05-14-2021 Hemoglobin (Bld) [Mass/Vol] 16.1 g/dL 13.0-16.5 [facility] Work Phone: Blood lymphocytes/100 leukoc yteson 05-14-2021 Lymphocytes/100 WBC (Bld) 28.4 % 19-41 [facility] Work Phone: Blood monocytes/100 leukocyt eson 05-14-2021 Monocytes/100 WBC (Bld) 11.0 % 0-10 [facility] Work Phone: Blood platelet mean volumeon 05-14-2021 Platelet mean volume (Bld) [Entitic vol] 10.3 fL 6.2-12.0 [facility] Work Phone: Determination of erythrocyte mean corpuscular volume (MCV)on 05-14-2021 MCV (RBC) [Entitic vol] 87.9 fL 80-94 [facility] Work Phone: Hematocrit Auto (Bld) [Volum e fraction]on 05-14-2021 Hematocrit (Bld) [Volume fraction] 48.5 % 40-54 [facility] Work Phone: Laboratory - Chemistry and C hemistry - challengeon 05-14-2021 CO2 [Moles/Vol] 27.0 mmol/L 21.0-32.0 [facility] Work Phone: Magnesium [Mass/Vol] 1.8 mg/dL 1.6-2.6 [facility] Work Phone: Comment on above: Slight Hemolysis, Re sult may be falsely increased. Natriuretic peptide B (Bld) [Mass/Vol] pg/mL 0-100 [facility] Work Phone: Urea nitrogen/Creatinine [Mass ratio] 9.6 mg/mg 10-20 [facility] Work Phone: Laboratory - Hematology and Cell countson 05-14-2021 Erythrocyte distribution width (RBC) [Entitic vol] 41.9 fL 35.1-43.9 [facility] Work Phone: Erythrocyte distribution width (RBC) [Ratio] 13.0 % 11.6-14.6 [facility] Work Phone: Immature granulocytes/100 WBC (Bld) 0.300 % 0.0-0.9 [facility] Work Phone: Comment on above: IG% - Immature Granu locytes (promyelocytes, myelocytes and metamyelocytes) > 1% indicates that a LEFT SHIFT is Present. MCH (RBC) [Entitic mass] 29.2 pg 27.0-32.0 [facility] Work Phone: Nucleated RBC/100 WBC (Bld) [Ratio] 0 % 0-5 [facility] Work Phone: MCHC Auto (RBC) [Mass/Vol]on 05-14-2021 MCHC (RBC) [Mass/Vol] 33.2 g/dL 32-36 [facility] Work Phone: No Panel Informationon 05-14 Troponin I High Sensitivity 8 pg/mL 3.0-78.0 [facility] Work Phone: Comment on above: Please Note: [place] t Units and Gender Specific Reference Ranges. For more information see Policy Stat Procedure [place] High Sensitivity Troponin (TNIH) and attachments. Estimated Creatinine Clearance Calc 59.72 ml/min [facility] Work Phone: Estimated GFR (MDRD) Amer 65 mL/min >60 [facility] Work Phone: Comment on above: GFR Calc Estimated GFR (MDRD) Non-Af Amer 53 mL/min >60 [facility] Work Phone: Comment on above: Non- GFR Calc Thyroid Stimulating Hormone (TSH) 2.59 uIU/mL 0.358-3.74 [facility] Work Phone: Platelets bldon 05-14-2021 Platelets (Bld) [#/Vol] 280 10*3/uL 150-450 [facility] Work Phone: Serum or plasma calcium tolu urement (mass/volume)on 05-14-2021 Calcium [Mass/Vol] 9.4 mg/dL 8.5-10.1 [facility] Work Phone: Serum or plasma creatinine m easurement (mass/volume)on 05-14-2021 Creatinine [Mass/Vol] 1.46 mg/dL 0.70-1.30 [facility] Work Phone: Comment on above: The validity of the calculated GFR & GFRAA in patients over 70 years has not been determined. Clinical correlation is essential. Serum or plasma urea nitroge n measurement (mass/volume)on 05-14-2021 Urea nitrogen [Mass/Vol] 14 mg/dL 7-18 [facility] Work Phone: Thin prep Papanicolaou smear with manual screeningon 05-14-2021 Thin prep Papanicolaou smear with manual screening 6 5-15 [facility] Work Phone: Basophil percentageon 2021 Bilirubin [Mass/Vol] 0.60 mg/dL 0.20-1.00 [facility] Work Phone: Comment on above: For patients on eltr ombopag therapy, use of [place]ension [place] TBIL is not recommended. Chloride [Moles/Vol] 104 mmol/L 98-107 [facility] Work Phone: Cholesterol [Mass/Vol] 218 mg/dL <200 [facility] Work Phone: Comment on above: <200 mg/dL Desirable 200-240 mg/dL Borderline >240 mg/dL High Risk Glucose [Mass/Vol] 103 mg/dL 74-106 [facility] Work Phone: Comment on above: Fasting Glucose resu lt from 100 to 125 mg/dL suggests IMPAIRED HOMEOSTASIS per A.D.A. criteria. Potassium [Moles/Vol] 4.3 mmol/L 3.5-5.1 [facility] Work Phone: Protein [Mass/Vol] 7.5 g/dL 6.4-8.2 [facility] Work Phone: Sodium [Moles/Vol] 138 mmol/L 136-145 [facility] Work Phone: Triglyceride [Mass/Vol] 216 mg/dL [facility] Work Phone: Comment on above: The drugs N-Acetylcy steine and Metamizole may falsely depress this assay.Serum Triglycerides Reference Interval Normal <150 mg/dL Borderline high 150 - 199 mg/dL High 200 - 499 mg/dL Very High > or = 500 mg/dL Laboratory - Chemistry and C hemistry - challengeon 05-13-2021 ALP [Catalytic activity/Vol] 59 U/L 45-117 [facility] Work Phone: ALT [Catalytic activity/Vol] 54 U/L 16-61 [facility] Work Phone: CO2 [Moles/Vol] 30.0 mmol/L 21.0-32.0 [facility] Work Phone: Globulin (S) [Mass/Vol] 3.4 g/dL 2.2-4.2 [facility] Work Phone: Urea nitrogen/Creatinine [Mass ratio] 8.0 mg/mg 10-20 [facility] Work Phone: No Panel Informationon 05-13 Estimated GFR (MDRD) Amer 69 mL/min >60 [facility] Work Phone: Comment on above: GFR Calc Estimated GFR (MDRD) Non-Af Amer 57 mL/min >60 [facility] Work Phone: Comment on above: Non- GFR Calc Serum or plasma albumin tolu urement (mass/volume)on 05-13-2021 Albumin [Mass/Vol] 4.1 g/dL 3.2-5.0 [facility] Work Phone: Serum or plasma albumin/glob ulin mass ratioon 05-13-2021 Albumin/Globulin [Mass ratio] 1.2 {ratio} 0.9-2.4 [facility] Work Phone: Serum or plasma calcium tolu urement (mass/volume)on 05-13-2021 Calcium [Mass/Vol] 9.6 mg/dL 8.5-10.1 [facility] Work Phone: Serum or plasma cholesterol in HDL measurement (mass/volume)on 05-13-2021 Cholesterol in HDL [Mass/Vol] 47 mg/dL [facility] Work Phone: Comment on above: The drugs N-Acetylcy steine and Metamizole may falsely depress this assay. Reference Range HDL <40 mg/dL Low HDL Cholesterol HDL >or= 60 mg/dL High HDL Cholesterol Serum or plasma cholesterol in VLDL measurement (mass/volume)on 05-13-2021 Cholesterol in VLDL [Mass/Vol] 43 mg/dL 5-40 [facility] Work Phone: Serum or plasma creatinine m easurement (mass/volume)on 05-13-2021 Creatinine [Mass/Vol] 1.38 mg/dL 0.70-1.30 [facility] Work Phone: Comment on above: The validity of the calculated GFR & GFRAA in patients over 70 years has not been determined. Clinical correlation is essential. Serum or plasma low density lipoprotein (LDL) cholesterol measurement (mass/volume)on 05-13-2021 Cholesterol in LDL [Mass/Vol] 128 mg/dL 0-130 [facility] Work Phone: Serum or plasma urea nitroge n measurement (mass/volume)on 05-13-2021 Urea nitrogen [Mass/Vol] 11 mg/dL 7-18 [facility] Work Phone: Serum or plasma uric acid me asurement (mass/volume)on 05-13-2021 Urate [Mass/Vol] 7.0 mg/dL 3.5-7.2 [facility] Work Phone: Comment on above: The drugs N-Acetylcy steine and Metamizole may falsely depress this assay. Thin prep Papanicolaou smear with manual screeningon 05-13-2021 Thin prep Papanicolaou smear with manual screening 24 U/L 15-37 [facility] Work Phone: Thin prep Papanicolaou smear with manual screening 4 5-15 [facility] Work Phone: Vital Signs Date Time Vital Sign Value Performing Clinician Rubyi theodorey 03-28-2023 15:50-0500 Diastolic blood pressure 63 mm[Hg] Jeremie Riley MD Work Phone: [facility] 03-28-2023 15:50-0500 Systolic blood pressure 114 mm[Hg] Jeremie Riley MD Work Phone: [facility] 03-28-2023 15:10-0500 Body temperature 97.9 [degF] Jeremie Riley MD Work Phone: [facility] 03-28-2023 15:10-0500 Heart rate 64 /min Jeremie Riley MD Work Phone: [facility] 03-28-2023 15:10-0500 Respiratory rate 14 /min Jeremie Riley MD Work Phone: [facility] 03-28-2023 15:10-0500 SaO2% (BldA) [Mass fraction] 97 % Jeremie Riley MD Work Phone: [facility] 03-28-2023 08:45-0500 Body height 177.8 cm Jeremie Riley MD Work Phone: [facility] 03-28-2023 08:45-0500 Body mass index (BMI) [Ratio] 36.06 kg/m2 Jeremie Riley MD Work Phone: [facility] 03-28-2023 08:45-0500 Body weight 114 kg Jeremie Riley MD Work Phone: [facility] 04-29-2022 10:18-0500 Body height 177.[address] Renato Rider Work Phone: [facility] 04-29-2022 10:13-0500 Body mass index (BMI) [Ratio] 37.5 kg/m2 Dr. Renato Rider Work Phone: [facility] 04-29-2022 10:13-0500 Body weight 118.[address] Renato Rider Work Phone: [facility] 04-29-2022 10:13-0500 Diastolic blood pressure 82 mm[Hg] Dr. Renato Rider Work Phone: [facility] 04-29-2022 10:13-0500 Heart rate 66 /min Dr. Renato Rider Work Phone: [facility] 04-29-2022 10:13-0500 Respiratory rate 18 /min Dr. Renato Rider Work Phone: [facility] 04-29-2022 10:13-0500 SaO2% (BldA) [Mass fraction] 94 % Dr. Renato Rider Work Phone: [facility] 04-29-2022 10:13-0500 Systolic blood pressure 138 mm[Hg] Dr. Renato Rider Work Phone: [facility] 05-17-2021 13:26-0500 Body height 177.[address] Renato Rider Work Phone: [facility] Work Phone: 05-17-2021 13:26-0500 Body mass index (BMI) [Ratio] 36.1 kg/m2 Dr. Renato Rider Work Phone: [facility] Work Phone: 05-17-2021 13:26-0500 Body weight 114.[address] Renato Rider Work Phone: [facility] Work Phone: 05-17-2021 13:26-0500 Diastolic blood pressure 89 mm[Hg] Dr. Renato Rider Work Phone: [facility] Work Phone: 05-17-2021 13:26-0500 Heart rate 62 /min Dr. Renato Rider Work Phone: [facility] Work Phone: 05-17-2021 13:26-0500 Respiratory rate 16 /min Dr. Renato Rider Work Phone: [facility] Work Phone: 05-17-2021 13:26-0500 SaO2% (BldA) [Mass fraction] 96 % Dr. Renato Rider Work Phone: [facility] Work Phone: 05-17-2021 13:26-0500 Systolic blood pressure 131 mm[Hg] Dr. Renato Rider Work Phone: [facility] Work Phone: 05-14-2021 20:00-0500 Diastolic blood pressure 78 mm[Hg] Dr. Renato Rider Work Phone: [facility] Work Phone: 05-14-2021 20:00-0500 Heart rate 70 /min Dr. Renato Rider Work Phone: [facility] Work Phone: 05-14-2021 20:00-0500 Respiratory rate 23 /min Dr. Renato Rider Work Phone: [facility] Work Phone: 05-14-2021 20:00-0500 SaO2% (BldA) [Mass fraction] 98 % Dr. Renato Rider Work Phone: [facility] Work Phone: 05-14-2021 20:00-0500 Systolic blood pressure 137 mm[Hg] Dr. Renato Rider Work Phone: [facility] Work Phone: 05-14-2021 16:42-0500 Body mass index (BMI) [Ratio] 37.3 kg/m2 Dr. Renato Rider Work Phone: [facility] Work Phone: 05-14-2021 16:42-0500 Body temperature 98.1 [degF] Dr. Renato Rider Work Phone: [facility] Work Phone: 05-14-2021 16:42-0500 Body weight 117.[address] Renato Rider Work Phone: [facility] Work Phone: Encounters Encounter Date Encounter Type Care Provider Facility Start: 09-26-2024 ambulatory Martir Whittington Facility: [facility] Start: 07-02-2024 End: 07-02-2024 ambulatory Martir Whittington Facility:[facility] Start: 03-26-2024 End: 03-26-2024 ambulatory Martir Whittington Facility:[facility] Start: 02-21-2024 End: 02-21-2024 ambulatory Nehal Moore Facility:[facility] Start: 01-19-2024 End: 01-19-2024 ambulatory Renato Rider Facility:[facility] Start: 01-08-2024 End: 01-08-2024 ambulatory Jeremie Riley Facility:[facility] Start: 01-03-2024 ambulatory Jacinta Cisneros Facility :[facility] Start: 12-25-2023 End: 12-25-2023 ambulatory Jeremie Riley Facility:[facility] Start: 06-30-2023 End: 06-30-2023 ambulatory [facility] Work Phone: Start: 06-30-2023 End: 06-30-2023 Patient encounter procedure [facility] Work Phone: Start: 03-28-2023 End: 03-28-2023 ambulatory JEREMIE RILEY [facility] Start: 03-28-2023 End: 03-28-2023 Evaluation and management of inpatient Jeremie Riley MD Work Phone: [facility] Start: 03-28-2023 End: 03-28-2023 Subsequent hospital visit by physician Jeremie Riley MD Work Phone: [facility] Comment on above: Malignant neoplasm o f prostate (CMS/HCC) Start: 03-21-2023 End: 03-21-2023 Patient encounter procedure [facility] Start: 03-09-2023 End: 03-09-2023 ambulatory NEHAL MOORE [facility] Start: 03-09-2023 Encounter for other preprocedural examination JEREMIE RILEY [facility] Start: 02-17-2023 End: 02-17-2023 ambulatory [facility] Work Phone: Start: 02-17-2023 End: 02-17-2023 Patient encounter procedure [facility], [facility] Work Phone: Start: 02-13-2023 End: 02-13-2023 ambulatory [facility] Work Phone: Start: 02-13-2023 End: 02-13-2023 Patient encounter procedure [facility] Spec[facility] Work Phone: Start: 02-10-2023 End: 02-10-2023 ambulatory [facility] Work Phone: Start: 02-10-2023 End: 02-10-2023 Patient encounter procedure [facility] - [facility] Work Phone: Start: 01-18-2023 End: 01-18-2023 Patient encounter procedure [facility] Work Phone: Start: 05-24-2022 End: 05-24-[address] Renato Rider Work Phone: [facility] Work Phone: Start: 05-24-2022 End: 05-24-[address] Renato Rider Work Phone: [facility] Start: 04-29-2022 End: 04-29-[address] Renato Rider Work Phone: [facility] Start: 06-01-2021 Non-patient / Non-visit Dr. Blake Rider Work Phone: [facility] Start: 06-01-2021 End: 06-01-[address] Renato Rider Work Phone: [facility] Start: 05-17-2021 End: 05-17-[address] Renato Rider Work Phone: [facility] Start: 05-14-2021 End: 05-14-2021 Emergency department patient visit Dr. Renato Rider Work Phone: [facility] Start: 05-13-2021 End: 05-13-[address] Renato Rider Work Phone: [facility] Procedures Date Procedure Procedure Detail Performing Clinician Start: 03-21-2023 Positron emission tomography with computed tomography Start: 03-09-2023 Antibody screen JEREMIE RILEY Comment on above: Performed By: #### [id number] #### [facility] [address] [place] [address] Start: 02-17-2023 Computed tomography of abdomen and pelvis with contrast Start: 02-17-2023 Radionuclide whole b evan bone study Start: 02-10-2023 MRI of pelvis with contrast Start: 05-14-2021 Plain chest X-ray Dr. Nitin Rider Work Phone: Plan of Treatment Date Care Activity Detail Author Start: 03-09-2024 Hypertension/CHF/CAD Annual BMP Blood Test Hypertension/CHF/CAD Annual BMP Blood Test [facility] Start: 03-28-2023 End: 03-28-2023 PROSTATECTOMY ROBOT PROSTATECTOMY ROBOT Malignant neoplasm of prostate (CMS/HCC) 03/28/2023 10:19 AM EST [facility] Start: 03-09-2023 Adolescent depressio n screening assessment Depression Screening [facility] Start: 03-09-2023 Hepatitis C screening Hepatitis C Sc reening [facility] Start: 03-09-2023 HIV screening HIV Screening [facility] Start: 03-09-2023 Lipid panel Cholesterol Sc reening (Lipid Panel) [facility] Start: 03-09-2023 Social Influencers o f Health Screening Social Influencers of Health Screening [facility] Start: 11-11-2022 Influenza vaccination Influenza Vacc ine (#1) [facility] Start: 05-29-2017 DTaP,Tdap,and Td Vaccines (2 - Td or Tdap) DTaP,Tdap,and Td Vaccines (2 - Td or Tdap) [facility] Start: 1985 Zoster Vaccines (1 of 2) Zoster Vacc chanelle (1 of 2) [facility] Start: 1972 Pneumococcal Vaccine : Pediatrics (0 to 5 Years) and At-Risk Patients (6 to 64 Years) (1 - PCV) Pneumococcal Vaccine: Pediatrics (0 to 5 Years) and At-Risk Patients (6 to 64 Years) (1 - PCV) [facility] Start: 11-30-1971 COVID-19 Vaccine (#1) COVID-19 Vacci ne (#1) [facility] Start: 1966 Hepatitis B Vaccines (1 of 3 - 3-dose series) Hepatitis B Vaccines (1 of 3 - 3-dose series) [facility] Pathology study [facility] Work Phone: Comment on above: Release Upon [place] for 1 Occurrences starting 03/28/2023, 1 completed Patient Education ED Weakness (U ncertain Cause) [facility] Work Phone: Patient referral [facility] Work Phone: Payers Date Payer Category Payer Self-pay [id number] 2022 Unknown [id number] 2022 Unknown DELICIAAIN DELICIAAI N [id number] 2022-Present [address] [place] [id number] 2016 Unknown [id number] 1966 Unknown [id number] 1966 Unknown [id number] [facility] [employer] [id number] Unknown [id number] Unknown [id number] Unknown [id number] Unknown [id number] Unknown [id number] Unknown [id number] Unknown [id number] Unknown [id number] Social History Date Type Detail Facility Start: 05-17-2021 End: 04-29-2022 Tobacco smoking status COIS Unknown if ever smoked [facility] Start: 05-13-2016 None [facility] Start: 05-09-2016 Spouse/ Signif icant Other [facility] Start: 05-09-2016 Non-smoker [facility] Start: 1965 Sex Assigned At Male [facility] Start: 03-09-2023 Tobacco smoking status NHIS Never smoked tobacco [facility] Start: 03-09-2023 Tobacco use and exposure Smokeless tobacco non-user [facility] Start: 03-28-2023 Alcohol intake Current drinke r of alcohol (finding) [facility] Start: 03-09-2023 Alcohol Comment occasional [facility] Start: 1965 Sex Assigned At Not on file [facility] Gender identity Not on file [facility] [address] th Mental Status Date Assessment Result Facility 05-14-2021 Cognitive function Voice/Name [facility] Work Phone: Clinical Notes 03-14-2023 to 03-28-2023 Marcy Rock RN - 03/28/2023 3:46 PM Franco Rock RN - 03/28/2023 3:46 PM Brendna Riley MD - 03/28/2023 10:40 AM Liu Hatfield RN - 03/28/2023 9:27 AM EST Note Date & Type Note Facility 03-28-2023 Nurse Note Patient tolerating naila crackers and water. Patient walked back and forth in SDU multiple times without issue. Discharge teaching done with patient's . All questions answered. Patient going home with enwell catheter and leg bag. [facility] 03-28-2023 Procedure note Patient tolerating naila crackers and water. Patient walked back and forth in SDU multiple times without issue. Discharge teaching done with patient's . All questions answered. Patient going home with newell catheter and leg bag. ATTENDING PHYSICIAN: Jeremie Riley MD CLAY HOISTER: Rolly HERNÁNDEZ PREOPERATIVE DIAGNOSIS Prostate cancer. POSTOPERATIVE DIAGNOSIS Prostate cancer. PROCEDURE Robot-assisted laparoscopic radical prostatectomy with bilateral nerve-sparing and bilateral pelvic lymphadenectomy. SURGEON Jeremie Riley MD ANESTHESIA General. ESTIMATED BLOOD LOSS 100 mL COMPLICATIONS None. The patient presented with a history of prostate cancer diagnosed on needle biopsy and was counseled on the risks and benefits of treatment. He elected to proceed with a robotic prostatectomy in nerve-sparing fashion. The patient was properly identified, consent was obtained, and the patient was brought to the operating room. He was placed in supine position. Anesthesia performed the induction. He was positioned and prepped and draped in standard fashion. The procedure was then begun. The scalpel was used to make an incision to the left of the umbilicus through which the Veress needle was placed. The abdomen was insufflated and a 12 mm port was placed. The scope was then used to guide placement of the remaining three 8mm ports. The robot was docked and the remainder of the procedure was done robotically. The seminal vesicles and vasa were dissected posteriorly in the rectal cul de sac. The bladder was dropped away from the anterior abdominal wall. The pelvic lymphadenectomy was then performed bilaterally removing the lymph nodes between the external iliac vein and obturator nerve from the femoral canal to the bifurcation of the iliac vessels.The endopelvic fascia was incised, and the bladder was then released from the base of the prostate. The posterior plane between the prostate and the rectum was developed bluntly and nerve-sparing was performed bilaterally using Hem-o-carlos clips on the pedicles with release of the neurovascular bundles all the way to the apex. The dorsal vein complex and urethra were then divided and the prostate was placed in an EndoCatch bag. The dorsal vein ligating suture was placed and pexed to the anterior pubic symphysis to perform urethral suspension for postoperative support of the urethrovesical anastomosis complex for continence. The posterior reconstruction was then performed, and then a running vesicourethral anastomosis was performed using double-armed Biosyn suture in watertight fashion such that a J-P drain was not required. The specimens were then extracted through the periumbilical incision. The fascia was closed with Ethibond. All port sites were closed with Biosyn and Dermabond. The procedure was terminated. The patient was then taken to the recovery room in good condition after reversal of anesthesia. He tolerated the procedure well, there were no complications. Due to the complexity of the surgery and need for a bedside freezer assistant, Rolly HERNÁNDEZ assisted for the entire surgery. Newell catheter edu and surgeon's discharge instructions completed in preop. Genereal anesthesia post-op care instructions completed in preop. All questions answered and pt verbalized understanding. Marielos/Dr. Riley's office notified of mixed isidro in urine. Office to follow up. documented in this encounter [facility] 03-28-2023 History of Presen t illness Narrative Adequate for pacu discharge documented in this encounter [facility] 03-28-2023 Surgery Surgical operation note ATTENDING PHYSICIAN: Jeremie Riley MD CLAY HOISTER: Rolly HERNÁNDEZ PREOPERATIVE DIAGNOSIS Prostate cancer. POSTOPERATIVE DIAGNOSIS Prostate cancer. PROCEDURE Robot-assisted laparoscopic radical prostatectomy with bilateral nerve-sparing and bilateral pelvic lymphadenectomy. SURGEON Jeremie Rliey MD ANESTHESIA General. ESTIMATED BLOOD LOSS 100 mL COMPLICATIONS None. The patient presented with a history of prostate cancer diagnosed on needle biopsy and was counseled on the risks and benefits of treatment. He elected to proceed with a robotic prostatectomy in nerve-sparing fashion. The patient was properly identified, consent was obtained, and the patient was brought to the operating room. He was placed in supine position. Anesthesia performed the induction. He was positioned and prepped and draped in standard fashion. The procedure was then begun. The scalpel was used to make an incision to the left of the umbilicus through which the Veress needle was placed. The abdomen was insufflated and a 12 mm port was placed. The scope was then used to guide placement of the remaining three 8mm ports. The robot was docked and the remainder of the procedure was done robotically. The seminal vesicles and vasa were dissected posteriorly in the rectal cul de sac. The bladder was dropped away from the anterior abdominal wall. The pelvic lymphadenectomy was then performed bilaterally removing the lymph nodes between the external iliac vein and obturator nerve from the femoral canal to the bifurcation of the iliac vessels.The endopelvic fascia was incised, and the bladder was then released from the base of the prostate. The posterior plane between the prostate and the rectum was developed bluntly and nerve-sparing was performed bilaterally using Hem-o-carlos clips on the pedicles with release of the neurovascular bundles all the way to the apex. The dorsal vein complex and urethra were then divided and the prostate was placed in an EndoCatch bag. The dorsal vein ligating suture was placed and pexed to the anterior pubic symphysis to perform urethral suspension for postoperative support of the urethrovesical anastomosis complex for continence. The posterior reconstruction was then performed, and then a running vesicourethral anastomosis was performed using double-armed Biosyn suture in watertight fashion such that a J-P drain was not required. The specimens were then extracted through the periumbilical incision. The fascia was closed with Ethibond. All port sites were closed with Biosyn and Dermabond. The procedure was terminated. The patient was then taken to the recovery room in good condition after reversal of anesthesia. He tolerated the procedure well, there were no complications. Due to the complexity of the surgery and need for a bedside freezer assistant, Rolly HERNÁNDEZ assisted for the entire surgery. [facility] 03-28-2023 Attending History and physical note History and Physical Update ( H&P completed within the previous thirty days ) I personally reviewed the History and Physical, interviewed and examined the patient prior to surgery. No changes have occurred in the patient's condition since the History and Physical was completed. Impression: Prostate CA Plan: Robotic Prostatectomy Source Note - Mundo Stallings MD - 03/09/2023 12:30 PM EST Images from the original note were not included. Mundo Dunn MD [facility] Hospitalists Medical Consultation Patient Name:Grant Thurston MR #:[id number] :1965 Admit Date: Physicians: Nehal Moore MD (Family); No ref. provider found (Referring) Reason for Consultation: Pre-Operative medical risk stratification and testing at the request of Dr. Jeremie Riley scheduled robotic assisted laparoscopic prostatectomy with lymph node dissection on March 28, 2023 Perpetual Assessment: Grant Thurston is a 57 y.o. male presented to [facility] clinic for Pre operative evaluation. ASSESSMENT AND PLAN Pre-Operative testing and risk stratification - The patient is being evaluated for a moderate risk surgery - The patient has no symptoms - The patient's functional capacity is >4 METS - The patient has the following pertinent Revised Cardiac Risk Index Indicators None - I have reviewed EKG and pertinent labs - Based on the above, the patient is medically optimized and at acceptable risk to proceed to surgery - Advised to hold anti-platelets, NSAIDs and alternative supplements (such as vitamins, herbal medications) 5-7 days prior to Surgery; These can be resumed post-operatively when cleared by the Surgeon - The patient may proceed to surgery, with comments/risks as noted above - Other recommendations: Prostate cancer -Patient with recent diagnosis of prostate cancer and now scheduled for prostatectomy as above. Essential hypertension -Continue with amlodipine. Hyperlipidemia -Continue regimen of Livalo. Gout -Currently no acute issues. Continue allopurinol HISTORY CC: Preoperative evaluation HPI: Grant Thurston is a 57 y.o. male presenting to PAT clinic for preoperative medical risk stratification and testing related to scheduled prostate surgery as above. Patient denies any history of coronary artery disease or myocardial infarction, denies any history of congestive heart failure, denies any history of stroke or TIA, denies any history of insulin requiring diabetes, denies any history of chronic kidney disease. Patient reports no chest pain or shortness of breath. Patient denies any headache or neck stiffness, denies any cough or sputum production, denies any abdominal pain, nausea vomiting or diarrhea, denies any melena or hematochezia, denies any dysuria or hematuria. ROS:>>>>>>>>>> The following system(s) were reviewed. Pertinent positive and negative findings are noted in the HPI. [x] Const [x] ENT [x] CV [x] [] Musc [x] Psych [] Allergy [] Eyes [x] Resp [x] GI [x] Neuro [x] Skin [] Endo [] Heme/Lymph PMH/PSH/SH/FH: Past Medical History: Diagnosis Date Diverticulitis 2017 surgically resolved Gastric ulcer 2006 Gastritis GERD (gastroesophageal reflux disease) Gout Hyperlipidemia Hypertension Kidney disease, chronic, stage II (GFR 60-89 ml/min) Kidney stones 2016 Prostate cancer ([facility]) 02/2023 Seasonal allergies Past Surgical History: Procedure Laterality Date APPENDECTOMY 2017 COLECTOMY PARTIAL / TOTAL 2017 LITHOTRIPSY TONSILLECTOMY as child Family History Problem Relation Name Age of Onset Hypertension Mother Hyperlipidemia Mother Hypertension Father Hyperlipidemia Father Stroke Father Cancer Father Social History Socioeconomic History Marital status: Spouse name: Not on file Number of children: Not on file Years of education: Not on file Highest education level: Not on file Occupational History Not on file Tobacco Use Smoking status: Never Smokeless tobacco: Never Vaping Use Vaping Use: Never used Substance and Sexual Activity Alcohol use: Yes Comment: occasional Drug use: Defer Sexual activity: Not on file Other Topics Concern Not on file Social History Narrative Not on file Allergy Information: I have reviewed the patient's allergies. Penicillins and Nsaids (non-steroidal anti-inflammatory drug) Home Medications: Prior to Admission medications Medication Sig Start Date End Date Taking? Authorizing Provider allopurinoL (ZYLOPRIM) 100 mg tablet Take 1 tablet (100 mg total) by mouth 1 (one) time each day. Historical Provider, amLODIPine (NORVASC) 5 mg tablet Take by mouth 1 (one) time each day. Historical Provider, aspirin 81 mg EC tablet Take 1 tablet (81 mg total) by mouth 1 (one) time each day. Historical Provider, multivitamin with minerals tablet Take 1 tablet by mouth 1 (one) time each day. Historical Provider, pitavastatin calcium (Livalo) 2 mg tablet Take 1 tablet (2 mg total) by mouth 1 (one) time each day. Do not crush, chew, or split. Historical Provider, PHYSICAL EXAMINATION > > > > > > > > Vital Signs: Temp: 36.9 C (98.4 F) (03/09 1200) Heart Rate: 82 (03/09 1200) Resp: 16 (03/09 1200) BP: 148/95 (03/09 1200) GENERAL: NAD EYES: Conjunctiva and sclera clear, EOMI, PERRL ENT: Hearing intact. Pharynx clear NECK: No adenopathy or thyromegaly CV: RRR, no murmur. No JVD. RESP: On Auscultation lungs are Clear, no rales, rhonchi, wheezes or increase in respiratory effort, no use of accessory muscles GI: Non-distended, +BS, soft, non-tender. No guarding, masses or rebound MUSC: Normal ROM without deformity. No pedal edema SKIN: Warm and dry. No rashes. NEURO: Alert, Ox3. Grossly normal motor and sensory exam. No focal deficits PSYCH: Mood and affect are appropriate. Cooperative. Results Review > > > > > > > > Lab Results Component Value Date WBC 6.8 03/09/2023 HGB 16.3 03/09/2023 HCT 48.8 03/09/2023 PLT 214 03/09/2023 NA 137 03/09/2023 K 3.8 03/09/2023 CL 105 03/09/2023 CREATININE 1.14 03/09/2023 BUN 12 03/09/2023 CO2 26 03/09/2023 INR 1.0 03/09/2023 Lab and diagnostic studies personally reviewed by me. Laboratory and Additional Data Acquired or Reviewed: [x] Laboratory [x] Radiology [x] Cardiology [x] Medications [x] Transcriptions [] Microbiology [x] Outside Records [] Family Time Spent: [employer] 03-28-2023 History and physi guillaume note History and Physical Update ( H&P completed within the previous thirty days ) I personally reviewed the History and Physical, interviewed and examined the patient prior to surgery. No changes have occurred in the patient's condition since the History and Physical was completed. Impression: Prostate CA Plan: Robotic Prostatectomy Source Note - Mundo Stallings MD - 03/09/2023 12:30 PM EST Images from the original note were not included. Mundo Dunn MD [facility] Hospitalists Medical Consultation Patient Name:Grant Thurston MR #:[id number] :1965 Admit Date: Physicians: Nehal Moore MD (Family); No ref. provider found (Referring) Reason for Consultation: Pre-Operative medical risk stratification and testing at the request of Dr. Jeremie Riley scheduled robotic assisted laparoscopic prostatectomy with lymph node dissection on March 28, 2023 Perpetual Assessment: Grant Thurston is a 57 y.o. male presented to PAT clinic for Pre operative evaluation. ASSESSMENT AND PLAN Pre-Operative testing and risk stratification - The patient is being evaluated for a moderate risk surgery - The patient has no symptoms - The patient's functional capacity is >4 METS - The patient has the following pertinent Revised Cardiac Risk Index Indicators None - I have reviewed EKG and pertinent labs - Based on the above, the patient is medically optimized and at acceptable risk to proceed to surgery - Advised to hold anti-platelets, NSAIDs and alternative supplements (such as vitamins, herbal medications) 5-7 days prior to Surgery; These can be resumed post-operatively when cleared by the Surgeon - The patient may proceed to surgery, with comments/risks as noted above - Other recommendations: Prostate cancer -Patient with recent diagnosis of prostate cancer and now scheduled for prostatectomy as above. Essential hypertension -Continue with amlodipine. Hyperlipidemia -Continue regimen of Livalo. Gout -Currently no acute issues. Continue allopurinol HISTORY CC: Preoperative evaluation HPI: Grant Thurston is a 57 y.o. male presenting to PAT clinic for preoperative medical risk stratification and testing related to scheduled prostate surgery as above. Patient denies any history of coronary artery disease or myocardial infarction, denies any history of congestive heart failure, denies any history of stroke or TIA, denies any history of insulin requiring diabetes, denies any history of chronic kidney disease. Patient reports no chest pain or shortness of breath. Patient denies any headache or neck stiffness, denies any cough or sputum production, denies any abdominal pain, nausea vomiting or diarrhea, denies any melena or hematochezia, denies any dysuria or hematuria. ROS:>>>>>>>>>> The following system(s) were reviewed. Pertinent positive and negative findings are noted in the HPI. [x] Const [x] ENT [x] CV [x] [] Musc [x] Psych [] Allergy [] Eyes [x] Resp [x] GI [x] Neuro [x] Skin [] Endo [] Heme/Lymph PMH/PSH/SH/FH: Past Medical History: Diagnosis Date Diverticulitis 2017 surgically resolved Gastric ulcer 2006 Gastritis GERD (gastroesophageal reflux disease) Gout Hyperlipidemia Hypertension Kidney disease, chronic, stage II (GFR 60-89 ml/min) Kidney stones 2016 Prostate cancer ([facility]) 02/2023 Seasonal allergies Past Surgical History: Procedure Laterality Date APPENDECTOMY 2017 COLECTOMY PARTIAL / TOTAL 2017 LITHOTRIPSY TONSILLECTOMY as child Family History Problem Relation Name Age of Onset Hypertension Mother Hyperlipidemia Mother Hypertension Father Hyperlipidemia Father Stroke Father Cancer Father Social History Socioeconomic History Marital status: Spouse name: Not on file Number of children: Not on file Years of education: Not on file Highest education level: Not on file Occupational History Not on file Tobacco Use Smoking status: Never Smokeless tobacco: Never Vaping Use Vaping Use: Never used Substance and Sexual Activity Alcohol use: Yes Comment: occasional Drug use: Defer Sexual activity: Not on file Other Topics Concern Not on file Social History Narrative Not on file Allergy Information: I have reviewed the patient's allergies. Penicillins and Nsaids (non-steroidal anti-inflammatory drug) Home Medications: Prior to Admission medications Medication Sig Start Date End Date Taking? Authorizing Provider allopurinoL (ZYLOPRIM) 100 mg tablet Take 1 tablet (100 mg total) by mouth 1 (one) time each day. Historical Provider, amLODIPine (NORVASC) 5 mg tablet Take by mouth 1 (one) time each day. Historical Provider, aspirin 81 mg EC tablet Take 1 tablet (81 mg total) by mouth 1 (one) time each day. Historical Provider, multivitamin with minerals tablet Take 1 tablet by mouth 1 (one) time each day. Historical Provider, pitavastatin calcium (Livalo) 2 mg tablet Take 1 tablet (2 mg total) by mouth 1 (one) time each day. Do not crush, chew, or split. Historical Provider, PHYSICAL EXAMINATION > > > > > > > > Vital Signs: Temp: 36.9 C (98.4 F) (03/09 1200) Heart Rate: 82 (03/09 1200) Resp: 16 (03/09 1200) BP: 148/95 (03/09 1200) GENERAL: NAD EYES: Conjunctiva and sclera clear, EOMI, PERRL ENT: Hearing intact. Pharynx clear NECK: No adenopathy or thyromegaly CV: RRR, no murmur. No JVD. RESP: On Auscultation lungs are Clear, no rales, rhonchi, wheezes or increase in respiratory effort, no use of accessory muscles GI: Non-distended, +BS, soft, non-tender. No guarding, masses or rebound MUSC: Normal ROM without deformity. No pedal edema SKIN: Warm and dry. No rashes. NEURO: Alert, Ox3. Grossly normal motor and sensory exam. No focal deficits PSYCH: Mood and affect are appropriate. Cooperative. Results Review > > > > > > > > Lab Results Component Value Date WBC 6.8 03/09/2023 HGB 16.3 03/09/2023 HCT 48.8 03/09/2023 PLT 214 03/09/2023 NA 137 03/09/2023 K 3.8 03/09/2023 CL 105 03/09/2023 CREATININE 1.14 03/09/2023 BUN 12 03/09/2023 CO2 26 03/09/2023 INR 1.0 03/09/2023 Lab and diagnostic studies personally reviewed by me. Laboratory and Additional Data Acquired or Reviewed: [x] Laboratory [x] Radiology [x] Cardiology [x] Medications [x] Transcriptions [] Microbiology [x] Outside Records [] Family Time Spent: documented in this encounter [facility] 03-28-2023 Nurse Note Newell catheter edu and surgeon's discharge instructions completed in preop. Genereal anesthesia post-op care instructions completed in preop. All questions answered and pt verbalized understanding. [facility] 03-14-2023 Nurse Note Marielos/Dr. Riley's office notified of mixed isidro in urine. Office to follow up. [facility] Evaluation note Diagnosis Onset Date Elevated blood pressure read ing without diagnosis of hypertension acute Hypertriglyceridemia acute [facility] Work Phone: Evaluation note* Diagnosis Onset Date Resolution Status Elevated blood pressure read ing without diagnosis of hypertension acute Hyperlipidemia chronic [facility] Work Phone: Evaluation noteNo assessment information available [facility] Work Phone: Evaluation note* Diagnosis Malignant neoplasm of prostate (CMS/HCC) Malignant neoplasm of prostate Prostate CA ([facility]/HCC) Malignant neoplasm of prostate [facility] Attachments The following attachments cannot be sent through Care Everywhere. * Radical Prostatectomy: Laparoscopic: Post-op (Bangladeshi) * General Anesthesia (Bangladeshi) * Indwelling Urinary Catheter Care: General Info ([place]ladeshi) [facility] Chief Complaint and Reason for Visit Chief Complaint E ORDER chest pain chest pain/HTN HTN Reason for Visit Elevated blood press ure reading without diagnosis of hypertension Hypertriglyceridemia Chief Complaint 1 YR F/U Reason for Visit Elevated blood press ure reading without diagnosis of hypertension Hyperlipidemia Chief Complaint ELEVATED PSA Chief Complaint ELEVATED PSA Malignant neoplasm of prostate Chief Complaint C61 Family History No Family History Records Found Relationship Condition Age at Onset Recorded Date/T hannah grandfather Venous thrombosis Unknown Myocardial infarction Unknown Cardiac disease Unknown father Myocardial infarction Unknown Hypercholesterolemia Unknown Cerebrovascular accident (CVA) Unknown Severe allergy Unknown Malignant neoplasm of prostate Unknown Coronary artery disease 70 mother Hypertension Unknown sister Hypertension Unknown aunt Coronary artery disease 80 Advance Directives No Advanced Directives Records Found Advance Directive Response Recorded Date/ Time Advance Directives Yes March 30, 2016 11:04pm Living Will Yes May 14, 2021 6:45pm Power of Biostatistician Yes May 14 6:45pm Advance Directive Response Recorded Date/ Time Advance Directives Yes March 30, 2016 10:04pm Living Will Yes May 14, 2021 5:45pm Power of Biostatistician Yes May 14 5:45pm Summary Purpose Additional Source Comments Goals (unrecognized section and content) Goals may be documented in a n alternate sectionGoals may be documented in an alternate sectionGoals may be documented in an alternate sectionGoals may be documented in an alternate sectionGoals may be documented in an alternate sectionGoals may be documented in an alternate section Care Teams (unrecognized sec tion and content) Team Status: Active Member Role Status Dates Dr. Renato Rider MD Family Provider Active Dr. Bruno Longoria DO Primary Care Provider Active Team Status: Inactive Member Role Status Dates Dr. Renato Rider MD Primary Care Provider, Referring Provider Active Ketty Montaño CORPORATE ACCOUNT EXECUTIVE, CORPORATE ACCOUNT EXECUTIVE-C Attending Provider Active Team Status: Inactive Member Role Status Dates Dr. Bruno Longoria DO Primary Care Prov ider, Attending Provider, Referring Provider Active Team Status: Active Member Role Status Dates Dr. Renato Rider MD Family Provider Active Dr. Nehal Moore MD Primary Care Provider Active Team Status: Inactive Member Role Status Dates Dr. Bruno Longoria DO Primary Care Provider Active Dr. Nehal Moore MD Attending Provider, Referring P tariq Active Team Status: Inactive Member Role Status Dates Dr. Garrett Major MD Attending Provider, Referr ing Provider Active Dr. Nehal Moore MD Primary Care Provider Active Team Status: Active Member Role Status Dates Dr. Nehal Moore MD Primary Care Provider Active Dr. Garrett Major MD Attending Provider, Referr ing Provider Active Team Status: Inactive Member Role Status Dates Dr. Nehal Moore MD Primary Care Provider Active Dr. Garrett Major MD Attending Provider, Referr ing Provider Active Guidance Secretary Relationship Specialty Start Date End Date Nehal Moore MD [address] [place] [place] [address] PCP - General Family Medicine 03/09/23 Team Status: Inactive Member Role Status Dates ABHILASH CHAO Attending Provider, Referring Provider A ctive Dr. Nehal Moore MD Primary Care Provider Active Dr. Garrett Major MD Other Provider Active Reason for Visit (unrecogniz ed section and content) Specialty Diagnoses / Procedures Referred By Contac t Referred To Contact Diagnoses Malignant neoplasm of prostate (CMS/HCC) Procedures TX LAP SURG PROSTATECTOMY RETROPUBIC RADICAL INCL NRV SPARING/ROBOTIC ASST TX LAPAROSCOPY SURG BILATERAL TOTAL PELVIC LYMPHADENECTOMY ROBOTIC ASSISTED LAPAROSCOPIC PROSTATECTOMY WITH PELVIC LYMPH NODE DISSECTION Jeremie Riley MD [address] [place] [address] [facility] [place] [address] [place] [address] Referral ID Status Reason Start Date Expiration Date Visits Re quested Visits Authorized [id number] 1 1 Scheduled Active and Recently Administ ered Medications (unrecognized section and content) Medication Order 03/26/2023 03/27/2023 03/28/2023 acetaminophen (TYLENOL) tablet 975 mg (COMPLETED) 975 mg, oral, Once, On Mon03/28/23 at 0845, For 1 dose, Preprocedure 0913 (Given - Provid er: Osiel Hatfield RN) ceFAZolin (ANCEF) 2 gram/20 mL IV syringe 2 g (COMPLETED) 2 g, intravenous, Administer over 3 Minutes, Once, On Mon03/28/23 at 1045, For 1 dose, Preprocedure, If patient less than 120kg (administer within 60 minutes of incision), Indication: Prophylaxis-Surgical 1021 (Given - Provid er: MITCHEL Mejia) dexAMETHasone (DECADRON) injection 10 mg 10 mg, intravenous, Once, On Mon03/28/23 at 0845, For 1 dose, Preprocedure, Pre-operatively. 10mg - Joints 8mg - Spine 0845 (Canceled Entry - Provider: Automatic Discharge Provider - Comment: Automatically canceled at discontinue of medication order) enoxaparin (LOVENOX) injection 40 mg (COMPLETED) 40 mg, subcutaneous, Once, On Mon03/28/23 at 0845, For 1 dose, Preprocedure, 1-2 hours pre-operatively. Hold lovenox for 12 hours if neuraxial anesthesia planned/administered. Hold lovenox if indwelling spinal/epidural catheter., Indication: VTE/PE Prophylaxis 0913 (Given - Provid er: Osiel Hatfield RN) oxyBUTYnin (DITROPAN) tablet 10 mg (COMPLETED) 10 mg, oral, Once, On Mon03/28/23 at 0845, For 1 dose, Preprocedure 0913 (Given - Provid er: Osiel Hatfield RN) Continuous Medication Order 03/26/2023 03/27/2023 03/28/2023 lactated Ringer's infusion 20 mL/hr, intravenous, Continuous, Starting on Mon03/28/23 at 0845, Preprocedure, Keep vein open 0930 (New Bag - Prov ider: Osiel Hatfield RN)1014 (Continued by Anesthesia - Provider: MITCHEL Mejia)1020 (Paused - Provider: MITCHEL Mejia - Comment: Switch to gravity)1021 (Restarted - Provider: MITCHEL Mejia)1354 (Canceled Entry - Provider: Automatic Discharge Provider - Comment: Automatically canceled at discontinue of medication order) PRN Medication Order 03/26/2023 03/27/2023 03/28/2023 BUPivacaine HCl (MARCAINE) 0.5 % injection (CANCELED) As needed, Starting on Mon03/28/23 at 1323, Intraprocedure 1323 (Given - Provid er: Jeremie Riley MD) lidocaine (PF) (XYLOCAINE-MPF) 1 % injection 0.2 mL (COMPLETED) 0.2 mL, intradermal, Once as needed, for IV insertion, Starting on Mon03/28/23 at 0826, For 1 dose, Preprocedure 0845 (Given - Provid er: Osiel Hatfield RN) oxyCODONE (ROXICODONE) immediate release tablet 5 mg (CANCELED) 5 mg, oral, Every 4 hours PRN, moderate pain or when therapies for mild pain were not effective, Starting on Mon03/28/23 at 1428, For 2 doses, Recovery (only), DO NOT ADMINISTER IF PATIENT IS NPO OR UNABLE TO TOLERATE MEDICATIONS PO 1458 (Given - Provid er: Isela Dominguez RN) povidone-iodine (BETADINE) 30 mL in sodium chloride 0.9 % 1,000 mL irrigation (CANCELED) As needed, Starting on Mon03/28/23 at 1045, Intraprocedure 1045 (Given - Provid er: Jeremie Riley MD - Comment: GIVEN TO STERILE FIELD) (unrecognized sect ion and content) No Status Records FoundNo Status Records Found INFORMATION SOURCE (unrecogn ized section and content) DATE CREATED AUTHOR 06/07/2023 [facility] DATE CREATED AUTHOR AUTHOR'S ORGANIZ ATION 12/23/2024 [facility] FOR RECORDS PERTAINING TO PATIENTS WHO ARE OR HAVE BEEN ENROLLED IN A CHEMICAL DEPENDENCY/SUBSTANCEABUSE PROGRAM, SOME INFORMATION MAY BE OMITTED. This clinical summary was aggregated from multiple sources. Caution should be exercised in using it in the provision of clinical care. This summary normalizes information from multiple sources, and as a consequence, information in this document may materially change the coding, format and clinical context of patient data. In addition, data may be omitted in some cases. CLINICAL DECISIONS SHOULD BE BASED ON THE PRIMARY CLINICAL RECORDS. [employer] provides no warranty or guarantee of the accuracy or completeness of information in this document.
== END 2025-01-19 09:03 | disposition home or self-care (01) ==
LOC: ED 08:37
PROVIDERS: Emergency Provider Emergency Medicine; PCP Family Medicine; Visit Provider Emergency Medicine
DX: M10.062 Idiopathic gout, left knee (principal); N18.2 Chronic kidney disease, stage 2 (mild); Z79.899 Other long term (current) drug therapy
CPT/HCPCS: 99282

== ENCOUNTER → 2025-01-20 | Outpatient (CLI) | payer OTHER, SELFPAY ==
[2025-01-20 17:58] LABS: Hematocrit 49.7 % (40-54); Hemoglobin 16.6 g/dL (13.0-16.5); Immature Granulocytes Count 0.050 X10^3/uL (0.0-0.0); Mean Corp Hgb Conc 33.4 g/dL (32-36); Mean Corpuscular Volume 90.2 fL (80-94); Mean Platelet Vol. 10.7 fl (6.2-12.0); NRBC Flagged by Analyzer 0 % (0-5); POSITIVE DIFFERENTIAL YES; Platelet Count 293 K/mm3 (150-450); RBC Distribution Width CV 13.3 % (11.6-14.6); RBC Distribution Width SD 44.5 fl (35.1-43.9); Red Blood Count 5.51 M/mm3 (4.6-6.2); White Blood Count 15.4 K/mm3 (4.4-11.0)
[2025-01-20 18:21] LABS: AST(SGOT) 38 U/L (<=37); Alanine Aminotransfer ALT/SGPT 121 U/L (<=46); Albumin, Serum 4.4 g/dL (3.5-5.0); Alkaline Phosphatase 62 U/L (40-129); Anion Gap 12 (5-15); BUN 20 mg/dL (4-19); BUN/Creat Ratio 13.3 RATIO (10-20); CRP 17.90 mg/L (0.0-3.0); Calcium,Total 9.5 mg/dL (7.6-11.0); Carbon Dioxide 26.2 mmol/L (21.0-32.0); Chloride 101 mmol/L (98-108); Globulin 2.9 g/dL (2.2-4.2); Glucose 101 mg/dL (70-99); Potassium 4.2 mmol/L (3.3-5.1)
[2025-01-20 18:52] LABS: Differential Indicated SCAN CRITERIA MET
[2025-01-20 18:59] LABS: PSA,Total- Diagnostic 0.07 ng/mL (0.00-4.00)
[2025-01-20 20:03] LABS: D-Dimer Quantitative (DVT/PE) 0.42 FEU/ug/m (0.27-0.49)
[2025-01-20 22:26] LABS: Differential Comment SCANNED
== END | disposition home or self-care (01) ==
LOC: BFHLAB 15:27
PROVIDERS: PCP Family Medicine; Referring Provider Student in an Organized Health Care Education/Training Program; Visit Provider Nurse Practitioner Family
DX: M79.662 Pain in left lower leg (principal)
CPT/HCPCS: 36415; 80053; 84153; 85025; 85379; 85652; 86140

== ENCOUNTER → 2025-01-21 | Outpatient (CLI) | payer OTHER, SELFPAY ==
[2025-01-21 12:48] LABS: Uric Acid 7.5 mg/dL (3.5-7.2)
== END | disposition home or self-care (01) ==
LOC: LAB 11:30
PROVIDERS: PCP Family Medicine; Referring Provider Nurse Practitioner Family; Visit Provider Nurse Practitioner Family
DX: M10.9 Gout, unspecified (principal); D72.829 Elevated white blood cell count, unspecified
CPT/HCPCS: 36415; 84550; 87040

== ENCOUNTER 2025-01-26 12:48 | Emergency (ER) | payer OTHER, SELFPAY ==
[2025-01-26 12:50] VITALS: BP 147/91; PULSE 60; RESP 16; TEMP 36.8; O2SAT 95; BMI 37.3
--- NOTE | 2025-01-26 13:11 | EX.ED.UPPERE ---
HPI History of Present Illness Chief Complaint: Upper Extremity Injury Narrative Narrative: 59-year-old male past medical history of gout, presents with his with multiple joint aches that he has had over the last week. They state that he was initially seen in the emergency department approximately 8 days ago, as he was seen for left knee pain. It was thought that maybe he was having a gouty arthritis exacerbation. He was placed on prednisone and a taper, but did not start until Monday. They state that he followed up with his primary care provider on Monday, and had lab work drawn. He had an elevated white count of 15-16,000 at that time, and was placed on Bactrim. While he denies any fever or chills, he states that his joint pain is also muscle pain and has been migratory. It went to his left elbow, and to his bilateral hands. He states over the last 1 to 2 days, his hands have been swollen to. He has pain at the base of his fifth metacarpals, traveling back into his hand. He denies any fever, chills, nausea, vomiting, or any exacerbating or alleviating factors. They state that although he was started on Bactrim, he may have improved for a day or 2, but they switched him to doxycycline on Monday, 2 days ago, and it was felt like he is still having migratory arthritis and joint pains. [facility] Medical History Erectile dysfunction after radical prostatectomy Stress incontinence, male Prostate cancer GERD (gastroesophageal reflux disease) Kidney disease Hypertriglyceridemia Gout Seasonal allergies Hay fever Stomach ulcer Obesity (BMI 30.0-34.9) Diverticulosis Adrenal mass, left Steatosis of liver Nephrolithiasis Chronic renal failure, stage 2 (mild) Hyperlipidemia Home Medications ?Medication ?Instructions ?Recorded ?Last Taken ?Type aspirin 81 mg tablet,delayed 81 mg PO DAILY 07/28/20 Unknown History release (Adult Aspirin Regimen) multivitamin 1 tab PO DAILY 07/28/20 Unknown History turmeric root extract 500 mg 1,000 mg PO DAILY 07/28/20 Unknown History capsule pitavastatin calcium 2 mg tablet 2 mg PO DAILY 04/29/22 Unknown History (Livalo) elderberry fruit 350 mg capsule mg PO 01/03/24 Unknown History tadalafil 5 mg tablet (Cialis) 5 mg PO QDAY 01/03/24 Unknown History allopurinol 100 mg tablet 100 mg PO QDAY PRN GOUT 01/19/24 Unknown History prednisone 10 mg tablet 10 mg PO UD #42 tabs 01/19/25 Unknown Rx oxycodone 5 mg tablet 5 mg PO Q6H PRN pain 3 days #12 01/26/25 Unknown Rx tabs Allergy/AdvReac Type Severity Reaction Status Date / Time Penicillins Allergy Severe Anaphylaxis Verified 01/26/25 12:50 [id number] Reductase AdvReac myalgias Verified 01/26/25 12:50 Inhibitor Family History Grandfather Blood clot in vein Myocardial infarction Heart disease Father Myocardial infarction Heart disease Hypercholesterolemia CVA (cerebral vascular accident) Severe allergy Prostate cancer CAD (coronary artery disease), Onset Age: 70 Mother Hypertension Hypercholesterolemia Sister Hypertension Aunt CAD (coronary artery disease), Onset Age: 80 Surgical History History of prostatectomy (03/28/23) Hx of prostate biopsy History of colonoscopy History of partial colectomy (2016) Hx of tonsillectomy H/O lithotripsy History of appendectomy Social History Smoking Status: Never smoker alcohol intake: current alcohol intake frequency: holidays/special occasions only substance use type: does not use what type of physical activity do you participate in: walking frequency: daily ROS ROS ED ROS Narrative Review of systems positive for migratory arthritis/joint pain and muscle pain. For started in the left knee, then in left elbow, moved to bilateral hands. He noted hand swelling over the last week as well. Pain worse with movement of his fingers and hands. No fevers or chills, no nausea or vomiting, no redness to skin. EXAM Physical Exam Narrative Exam Narrative: Afebrile. Vital signs noted. Nontoxic-appearing. Cardiovascular lamination reveals regular rate and rhythm. Lungs are clear to auscultation bilaterally. Abdomen is soft and nontender without guarding or rebound. Positive bowel sounds. Neurological examination nonfocal, nonlateralizing, moves all extremities. Musculoskeletal examination shows flexion extension left knee intact. He has mild swelling of his bilateral hands but no erythema, no crepitance. Full range of motion of left elbow. Const Vital Signs: 01/26/25 12:50 Temperature 98.3 F Temperature Source Oral Pulse Rate 60 Respiratory Rate 16 Blood Pressure 147/91 H Blood Pressure Mean 109 Pulse Ox 95 Oxygen Delivery Method Room Air MDM MDM MDM Narrative Medical decision making narrative: Differential diagnosis includes but not limited to undiagnosed rheumatoid arthritis versus osteoarthritis versus gouty arthritis. I have very low suspicion for any septic joints, especially of the knee, elbow, and his pain is mainly in his hands, and bilateral hands are swollen. He does appear neurovascularly intact to his fingers. I reviewed his prior outpatient laboratory work. He was given morphine intravenously for analgesia. I will obtain a CBC, CMP, ESR, and CRP. I had a lengthy discussion with the patient and his . He may require outpatient referral to rheumatology. I reviewed his laboratory work and he has a leukocytosis of 20,000, elevated from previous, but he is on prednisone currently. ESR has come down to 21 from 24. CMP is remarkable for glucose of 117 with a normal anion gap. Creatinine is slightly elevated but in review of prior labs he has chronic kidney disease, and his creatinine has improved slightly. He was given 2 doses of morphine here in the emergency department. His CRP is still pending. They requested that a Lyme titer be obtained. They were told the results will not return immediately. They were told to finish their doxycycline as previously directed. I discussed the patient with his primary care provider, Dr. Nehal Moore. She agrees with outpatient follow-up, and referral to rheumatology. Patient was written a prescription for oxycodone tablets to take as needed for his joint pain mainly in his hands. I do feel he can be discharged safely home with follow-up. Return instructions to the emergency department were reviewed. Disposition is discharged home in stable condition. History & Record Review Discussion w/independent historian: Patient and Family () Discharge Plan Triage Chief Complaint: Upper Extremity Injury ED Provider: Laurent Tony Dx/Rx/DC Orders Clinical Impression: Bilateral hand pain, Bilateral hand swelling, Leukocytosis Instructions: ED Arthralgia, ED Peripheral Edema, Bilateral, ED Pain, Acute, Uncertain Cause Prescriptions: New oxycodone 5 mg tablet 5 mg PO Q6H PRN (Reason: pain) 3 Days Qty: 12 0RF No Action multivitamin Tablet 1 tab PO DAILY turmeric root extract 500 mg capsule 1,000 mg PO DAILY aspirin [Adult Aspirin Regimen] 81 mg tablet,delayed release (DR/EC) 81 mg PO DAILY allopurinol 100 mg tablet 100 mg PO QDAY PRN (Reason: GOUT) Livalo 2 mg tablet 2 mg PO DAILY tadalafil [Cialis] 5 mg tablet 5 mg PO QDAY elderberry fruit 350 mg capsule PO prednisone 10 mg tablet 10 mg PO UD Qty: 42 0RF Rx Instructions: Take 4 tablets daily for 6 days, then 3 daily for 3 days, then 2 daily for 3 days, then 1 a day for 3 days Primary Care Provider: Nehal Moore Referrals: Amador Roman DO [Non-Staff, Rheumatology] - As soon as possible Nehal Moore MD [Primary Care Provider, Family Practice] - 3-5 Days Activity Restrictions/Additional Instructions: Follow-up with Dr. Shawna Wright. She is in the office on Monday. Try to follow-up with rheumatology as soon as possible. Return with fever, new or worsening symptoms. Finish your doxycycline as previously directed. Print Language: Belarusian Disposition Disposition: Home, Self Care
[2025-01-26 13:35] LABS: Hematocrit 50.7 % (40-54); Hemoglobin 17.1 g/dL (13.0-16.5); Immature Granulocytes Count 0.160 X10^3/uL (0.0-0.0); Mean Corp Hgb Conc 33.7 g/dL (32-36); Mean Corpuscular Volume 88.5 fL (80-94); Mean Platelet Vol. 10.1 fl (6.2-12.0); NRBC Flagged by Analyzer 0 % (0-5); POSITIVE DIFFERENTIAL YES; Platelet Count 327 K/mm3 (150-450); RBC Distribution Width CV 13.1 % (11.6-14.6); RBC Distribution Width SD 42.1 fl (35.1-43.9); Red Blood Count 5.73 M/mm3 (4.6-6.2); White Blood Count 20.0 K/mm3 (4.4-11.0)
--- OUTSIDE RECORDS SUMMARY | 2025-01-26 13:35 | XMS RPT_ITS | CCD ---
Author Organization [facility] Care Team Providers Care Business Communications Instructor Name Role Phone Dr. Renato Rider Primary Care Provider Dr. Renato Rider Referring Provider [phone] Cb Lucero Attending Provider [phone] Dr. Jan Lora Attending Provider [phone] Dr. Renato Rider Primary Care Provider Dr. Renato Rider Referring Provider [phone] Danyel HAIRSTON, JEFERSON Hdez Attending Provider Nehal Moore MD Primary Care Provider [phone] JEREMIE RILEY Attending Unavailable JEREMIE RILEY Admitting Unavailable MDEDEL, NEHAL Primary Care Unavailable MIEDEL, NEHAL Primary Care Unavailable Miedel, Nehal Primary Care Unavailable Eric Turner Attending Unavailable Martir Whittington Attending Unavailable Martir Whittington Referring Unavailable Miedel, Nehal Primary Care Unavailable Miedel, Nehal Primary Care Unavailable Michelle Olson Attending Unavailable Martir Whittington Referring Unavailable Michelle Olson Attending Unavailable Michelle Olson Referring Unavailable Miedel, Nehal Primary Care Unavailable Miedel, Nehal Primary Care Unavailable Miedel, Nehal Attending Unavailable Miedel, Nehal Referring Unavailable Martir Whittington Attending Unavailable Miedel, Nehal Primary Care Unavailable Miedel, Nehal Referring Unavailable Martir Whittington Attending Unavailable Martir Whittington Referring Unavailable Miedel, Nehal Primary Care Unavailable Allergies Allergy Classification Reported Allergen(s) Allergy Type Date of Onset Reaction(s) Facility (9 sources) Penicillins; Translations: [PENICILLINS] Allergy to substance 05-17-2021 Anaphylaxis [facility] (7 sources) Nvwrvgx-Dll-Urv Reductase Inhibitor; Translations: [Ahxmvdb-Ghs-Qyn Reductase Inhibitor] Propensity to adverse reactions 05-17-2021 myalgias [facility] (2 sources) Non-steroidal anti-inflammator y agent; Translations: [NSAIDS (NON-STEROIDAL ANTI-INFLAMMATOR Y DRUG)] Propensity to adverse reactions 03-09-2023 [facility] Medications Current Medications Medication Drug Class(es) [...] CoQ10) Active 100 MG PO DAILY July 27, 2020 11:00pm Start: 07-28-2020 coenzyme Q10 ( Vitaline [...] 3:23pm 2 TABLETS AT 6,8, AND 10 [place] 0-Gkt-Ela-Fish Oil (Fish Oil 1,600 Mg/5 Ml Liquid) 1,600 MG/5 ML Liquid (6 sources) Start: 05-08-2016 End: 05-11-2016 take 1600 mg by mouth once daily [place] 8-Lnh-Bxd-Fish Oil (Fish Oil 1,600 Mg/5 Ml Liquid) 1,600 MG/5 ML Liquid Discontinued 1600 MG PO DAILY May 08, 2016 12:53pm May 11, 2016 3:27pm Start: 05-08-2016 End: 05-11-2016 take 1600 mg by mouth once daily [place] 0-Kgf-Owt-Fish Oil (Fish Oil 1,600 Mg/5 Ml Liquid) 1,600 MG/5 ML Liquid Discontinued 1600 MG PO DAILY May 08, 2016 12:00am May 11, 2016 2:27pm Start: 05-08-2016 End: 05-11-2016 take 1600 mg by mouth once daily [place] 0-Ifh-Ubg-Fish Oil (Fish Oil 1,600 Mg/5 Ml Liquid) 1,600 MG/5 ML Liquid Discontinued 1600 MG PO DAILY May 08, 2016 1:00am May 11, 2016 3:27pm [place]-3 Fatty Acids-Fish Oil (Fish Oil 1,000 Mg Capsule) 1 EACH capsule (6 sources) Start: 12-16-2016 End: 01-30-2017 [place]-3 Fatty Acids-Fish Oil (Fish Oil 1,000 Mg Capsule) 1 EACH capsule Discontinued 1 EACH PO DAILY December 16, 2016 1:18pm January 30, 2017 1:42pm Start: 12-16-2016 End: 01-30-2017 [place]-3 Fatty Acids-Fish Oil (Fish Oil 1,000 Mg Capsule) 1 EACH capsule Discontinued 1 EACH PO DAILY December 15, 2016 11:00pm January 30, 2017 12:42pm Start: 12-16-2016 End: 01-30-2017 [place]-3 Fatty Acids-Fish Oil (Fish Oil 1,000 Mg [...] Lightheadedness; Translations: [Dizziness and giddiness] 05-17-2021 Episodic Diseases of white blood cells (1 source) Elevated white blood cell count, unspecified; Translations: [Elevated white blood cell count, unspecified] Onset: 01-21-2025 Chronic Disorders of lipid metabolism (15 sources) Hypertriglyceridemia; Translations: [Pure hyperglyceridemia] Onset: 03-09-2023 Chronic Diverticulosis and diverticulitis (18 sources) Diverticula of intestine; Translations: [Diverticulosis of intestine, part unspecified, without perforation or abscess without bleeding] 05-17-2021 Chronic Esophageal disorders (6 sources) Gastroesophageal reflux disease; Translations: [Gastro-esophageal reflux disease without esophagitis] 05-17-2021 Chronic Essential hypertension (1 source) Essential (primary) hypertension; Translations: [Essential (primary) hypertension] Onset: 03-09-2023 Chronic Fluid and electrolyte disorders (6 sources) Dehydration; Translations: [Dehydration] 05-17-2021 Episodic Gout and other crystal arthropathies (8 sources) Gout; Translations: [Gout, unspecified] Onset: 03-09-2023 05-17-2021 Chronic Headache; including migraine (6 sources) Headache; Translations: [Headache] 05-17-2021 Episodic Intestinal infection (6 sources) Viral gastroenteritis due to [place]-like agent; Translations: [Acute gastroenteropathy due to [place] agent] 05-17-2021 Episodic Malaise and fatigue (6 [...] conditions (not mental disorders or infectious disease) (1 source) Rising PSA following treatment for malignant neoplasm of prostate; Translations: [Rising PSA following treatment for malignant neoplasm of prostate] Onset: 12-23-2024 Episodic Septicemia (except in labor) (6 sources) Sepsis; Translations: [Sepsis, unspecified organism] 05-17-2021 Episodic Results Test Name Value Interpretation Reference Range Facility Uric Acidon 01-21-2025 URIC 7.5 mg/dL High 3.5-7.2 [facility] Comment on above: Result Comment: The drugs N-Acetylcysteine and Metamizole may falsely depress this assay. Performed By: #### L 501.1400 #### [facility] [address] [place], [address] CBC W/Diff, Automatedon 01-11 PLT EST ADEQUATE Normal ADEQ [facility] Comment on above: Performed By: #### L 300.8000, L501.6710, L500.4050, L101.9900, L100.0100 ####[facility] [address] [place], [address] SMEAR COMMENT SCANNED Normal [facility] Comment on above: Performed By: #### L 300.8000, L501.6710, L500.4050, L101.9900, L100.0100 ####[facility] [address] [place], [address] CRPon 01-20-2025 C-REACTIVE PROT 17.90 mg/L High 0.0-3.0 [facility] Comment on above: Performed By: #### L 300.8000, L501.6710, L500.4050, L101.9900, L100.0100 #### [facility] [address] [place], [address] Comprehensive Metabolic Prof ilon 01-20-2025 Albumin [Mass/Vol] 4.4 g/dL Normal 3.5-5.0 [facility] Comment on above: Performed By: #### L 300.8000, L501.6710, L500.4050, L101.9900, L100.0100 #### [facility] [address] [place], [address] Albumin/Globulin [Mass ratio] 1.5 {ratio} Normal 0.9-2.4 [facility] Comment on above: Performed By: #### L 300.8000, L501.6710, L500.4050, L101.9900, L100.0100 #### [facility] [address] [place], [address] ALK PHOS 62 U/L Normal 40-129 [facility] Comment on above: Performed By: #### L 300.8000, L501.6710, L500.4050, L101.9900, L100.0100 #### [facility] [address] [place], [address] ALT [Catalytic activity/Vol] 121 U/L High <=46 [facility] Comment on above: Performed By: #### L 300.8000, L501.6710, L500.4050, L101.9900, L100.0100 #### [facility] [address] [place], [address] AST [Catalytic activity/Vol] 38 U/L Normal <=37 [facility] Comment on above: Performed By: #### L 300.8000, L501.6710, L500.4050, L101.9900, L100.0100 #### [facility] [address] [place], [address] Bilirubin [Mass/Vol] 0.54 mg/dL Normal 0.00-1.30 [facility] Comment on above: Performed By: #### L 300.8000, L501.6710, L500.4050, L101.9900, L100.0100 #### [facility] [address] [place], [address] BUN/CRE 13.3 RATIO Normal 10-20 [facility] Comment on above: Performed By: #### L 300.8000, L501.6710, L500.4050, L101.9900, L100.0100 #### [facility] [address] [place], [address] Calcium [Mass/Vol] 9.5 mg/dL Normal 7.6-11.0 [facility] Comment on above: Performed By: #### L 300.8000, L501.6710, L500.4050, L101.9900, L100.0100 #### [facility] [address] [place], [address] Chloride [Moles/Vol] 101 mmol/L Normal 98-108 [facility] Comment on above: Performed By: #### L 300.8000, L501.6710, L500.4050, L101.9900, L100.0100 #### [facility] [address] [place], [address] CO2 [Moles/Vol] 26.2 mmol/L Normal 21.0-32.0 [facility] Comment on above: Performed By: #### L 300.8000, L501.6710, L500.4050, L101.9900, L100.0100 #### [facility] [address] [place], [address] Creatinine [Mass/Vol] 1.53 mg/dL High 0.70-1.20 [facility] Comment on above: Performed By: #### L 300.8000, L501.6710, L500.4050, L101.9900, L100.0100 #### [facility] [address] [place], [address] GAP 12 Normal 5-15 [facility] Comment on above: Performed By: #### L 300.8000, L501.6710, L500.4050, L101.9900, L100.0100 #### [facility] [address] [place], [address] GFR/1.73 sq M.predicted among non-blacks MDRD (S/P/Bld) [Vol rate/Area] 52 mL/min/{1.73_m2} Low >60 [facility] Comment on above: Result Comment: mL/m in/1.73m2 CKD-EPI Creatinine Equation (2020) Performed By: #### L 300.8000, L501.6710, L500.4050, L101.9900, L100.0100 #### [facility] [address] [place], [address] Globulin (S) [Mass/Vol] 2.9 g/dL Normal 2.2-4.2 [facility] Comment on above: Performed By: #### L 300.8000, L501.6710, L500.4050, L101.9900, L100.0100 #### [facility] [address] [place], [address] Glucose [Mass/Vol] 101 mg/dL High 70-99 [facility] Comment on above: Performed By: #### L 300.8000, L501.6710, L500.4050, L101.9900, L100.0100 #### [facility] [address] [place], [address] Potassium [Moles/Vol] 4.2 mmol/L Normal 3.3-5.1 [facility] Comment on above: Performed By: #### L 300.8000, L501.6710, L500.4050, L101.9900, L100.0100 #### [facility] [address] [place], [address] Sodium [Moles/Vol] 139 mmol/L Normal 133-145 [facility] Comment on above: Performed By: #### L 300.8000, L501.6710, L500.4050, L101.9900, L100.0100 #### [facility] [address] [place], [address] T PROT 7.3 g/dL Normal 5.9-8.4 [facility] Comment on above: Performed By: #### L 300.8000, L501.6710, L500.4050, L101.9900, L100.0100 #### [facility] [address] [place], [address] Urea nitrogen [Mass/Vol] 20 mg/dL High 4-19 [facility] Comment on above: Performed By: #### L 300.8000, L501.6710, L500.4050, L101.9900, L100.0100 #### [facility] [address] [place], [address] D-Dimer Quantitative (DVT/PE )on 01-20-2025 D-DIMER QUANT 0.42 FEU/ug/m Normal 0.27-0.49 [facility] Comment on above: Result Comment: NORM AL D-Dimer level (<0.50) indicates no DVT or PE. Performed By: #### L 300.8000, L501.6710, L500.4050, L101.9900, L100.0100 ####[facility] [address] [place], [address] Erythrocyte Sed Rateon 01-20 SED RATE 24 mm/hr High 0-20 [facility] Comment on above: Performed By: #### L 300.8000, L501.6710, L500.4050, L101.9900, L100.0100 ####[facility] [address] [place], [address] PSA,Total- Diagnosticon 01-11 PSA, DIAGNOSTIC 0.07 ng/mL Normal 0.00-4.00 [facility] Comment on above: Result Comment: This test was performed using the [employer] tPSA method. Measured values of a patient??sample can vary depending on the testing procedure used. PSA values determined on patient samples by different testing procedures cannot be used interchangeably. If there is a change in PSA assays while monitoring therapy, sequential testing should be performed to confirm baseline values. Performed By: #### L 501.9940 ####[facility] [address] [place], [address] Emergency Department Summary on 01-19-2025 Emergency Department Summary [facility] Medical Records Department [address] [place] [address] Emergency Department Summary 01/19/25 MR#: [id number] Acct: [id number] Name: GRANT THURSTON Rep #: [id number] : 1965 59 From: Eric Turner MD PCP: Dr. Nehal Moore MD Status:REG ER Location: ED HPI History of Present Illness Chief Complaint: Lower Extremity Injury Informant: patient and spouse/S.O. Narrative Narrative: Patient is a 59-year-old male with a history of gout and stage 2 CKD presenting with left knee pain. - Reports left leg pain since Monday night, worsening significantly last night. - Describes pain as throbbing and different from previous gout episodes, noting it is not localized to the joint as usual. - Denies known trauma or injury to the knee. No fevers/chills or systemic symptoms. - Pain exacerbated by bending the knee and WBing, but seems more lateral than anterior. - No significant swelling observed, but reports soreness in the area. - Recent episode of suspected gout in the elbow earlier this week, which resolved without pharmacologic treatment, used tart ramírez juice, which has helped but discomfort not resolved. - Resumed allopurinol 1 tablet daily since onset of R elbow symptoms after discontinuing it a long time ago. - Denies taking NSAIDs or other pain medications. - Strong family history of blood clots but he has never had any. [facility] Medical History Erectile dysfunction after radical prostatectomy Stress incontinence, male Prostate cancer GERD (gastroesophageal reflux disease) Kidney disease Hypertriglyceridemia Gout Seasonal allergies Hay fever Stomach ulcer Obesity (BMI 30.0-34.9) Diverticulosis Adrenal mass, left Steatosis of liver Nephrolithiasis Chronic renal failure, stage 2 (mild) Hyperlipidemia Home Medications ???Medication ???Instructions ???Recorded ???Last Taken ???Type aspirin 81 mg tablet,delayed 81 mg PO DAILY 07/28/20 Unknown Hi story release (Adult Aspirin Regimen) multivitamin 1 tab PO DAILY 07/28/20 Unknown Hi story turmeric root extract 500 mg 1,000 mg PO DAILY 07/28/20 Unknown History capsule pitavastatin calcium 2 mg tablet 2 mg PO DAILY 04/29/22 Unknown His tory (Livalo) elderberry fruit 350 mg capsule mg PO 01/03/24 Unknown History tadalafil 5 mg tablet (Cialis) 5 mg PO QDAY 01/03/24 Unknown Hist ory allopurinol 100 mg tablet 100 mg PO QDAY PRN GOUT 01/19/24 U nknown History prednisone 10 mg tablet 10 mg PO UD #42 tabs 01/19/25 Unkn own Rx Allergy/AdvReac Type Severity Reaction Status Date / Time Penicillins Allergy Severe Anaphylaxis Verified 01/19/25 07:49 Mgvfufy-Hmr-Zfj Reductase AdvReac myalgias Verified 01/19/25 07:49 Inhibitor (Rlsmqjz-XIR-UgB Reductase Inhibitor) Family History Grandfather Blood clot in vein [...] you participate in: walking frequency: daily ROS ROS ED Constitutional Constitutional ED: Denies chills or fever(s) Cardiovascular Cardiovascular: Denies chest pain Respiratory/Chest Respiratory/Chest: Denies dyspnea Musculoskeletal Musculoskeletal: Reports extremity pain; Denies neck pain Integumentary Denies Abrasions, rash or wounds Neurologic Neurologic: Denies paresthesias or weakness EXAM Physical Exam Const Vital Signs: 01/19/25 07:47 Temperature 97.4 F L Temperature Source Temporal Pulse Rate 76 Respiratory Rate 16 Blood Pressure 155/86 H Blood Pressure Mean 109 Pulse Ox 95 Oxygen Delivery Method Room Air Positive well nourished and well developed General Appearance ED: well developed and NAD Neck full ROM and supple Resp normal respiratory effort Back/Spine normal ROM and normal to inspection Extremity Extremity Narrative: No significant swelling in the left leg; pain with knee flexion; no edema in the lower leg. (more content not included)... Normal [facility] PSA,Total- Diagnosticon 09-10 PSA, DIAGNOSTIC 0.05 ng/mL Normal 0.00-4.00 [facility] Comment on above: Result Comment: This test [...] values. Performed By: #### L 501.9940 #### [facility] [address] [place] [place], [address] Radiation Oncology Visiton 0 07-02-2024 Radiation Oncology Visit [facility] [address] [place] [address] OFFICE VISIT Date of Service: 07/02/24 0900 MR#: [id number] Acct: [id number] Name: GRANT THURSTON Rep #: [id number] : 1965 From: Martir Whittington DO Age/Sex: 58/M [place] [facility] [place] [facility] Status: Signed Intake Vital Signs 01/19/24 08:24 [...] Penicillins Allergy (Severe, Verified 07/02/24 09:02) Anaphylaxis Osmcflu-ZVG-ZaD Reductase Inhibitor Adverse Reaction (Verified 07/02/24 09:02) [...] Penicillins Allergy Severe Anaphylaxis Verified 07/02/24 09:02 Ptrshqz-ZRH-XjA Reductase AdvReac myalgias Verified 07/02/24 09:02 Inhibitor [...] are noted. 03/28/2023: completed RP.??? Pathology demonstrated [place] 4+5 adenocarcinoma.??? Margins are negative.??? 5 lymph [...] having any (more content not included)... Normal [facility] PSA,Total- Diagnosticon 04- PSA, DIAGNOSTIC < 0.02 Normal 0.00-4.00 [facility] Comment on above: Result Comment: This test [...] values. Performed By: #### L 501.9940 #### [facility] [address] [place], [address] PSA,Total- Diagnosticon 03-14 PSA, DIAGNOSTIC < 0.01 Normal 0.0-4.0 [facility] Comment on above: Result Comment: This test was performed using the TPSA assay method for the [employer] chemistry system. Values obtained with different assay methods cannot be used interchangably. When changing PSA assays in the course of monitoring a patient, additional sequential testing should be carried out to confirm baseline values. Performed By: #### L 501.9940 #### [facility] [address] [place], [place], [address] Pelvis W/WO Contraston 03-26 Pelvis W/WO Contrast [facility] Imaging Services [address] [place] [address] Pelvis W/WO Contrast MR#: [id number] Acct: [id number] Name: GRANT THURSTON Rep #: [id number] : 1965 M 58 From: Tonny guerra MD PCP: Dr. Nehal Moore MD Status: [facility] Study: Pelvis W/WO Contrast Date of Exam: 03/26/24 Exam# [id number] Ordering Dr: Martir Whittington DO [id number] EXAMINATION: MR Prostate WO/W Contrast COMPARISON: 02/10/2023 [...] Nehal Moore MD; Dr. Martir Whittington DO Theater Set Production Designer: Signed Normal [facility] PET/CT Tumor Base -Thigh Sub son 02-27-2024 PET/CT Tumor Base -Thigh Subs [facility] Imaging Services [address] [place] [address] PET/CT Tumor Base -Thigh Subs MR#: [id number] Acct: [id number] Name: GRANT THURSTON Rep #: [id number] : 1965 M 58 From: Grant Villa PCP: Dr. Nehal Moore MD Status: REG RCR Study: PET/CT Tumor Base -Thigh Subs Date of Exam: Exam# [id number] Ordering Dr: Martir Whittington DO [id number] EXAMINATION: F [address] [...] The examination was interpreted using the EANM (Rachid et al., Journal of Nuclear Medicine Molecular [...] this report are calculated using the exclusive [employer], ([place]. Patent No. [phone] [place] patent [id number] [id number] ). Standardization and correction of the FDG SUV metric exclusively available with [employer] intellectual property, allow for vendor non-specific objective quantitative sequential FDG PET-CT comparison and otherwise unobtainable optimization of the sensitivity and specificity of the examination. [email or web address] Electronically Signed: Grant Camara DO at 9:20 EST , CC: Dr. Nehal Moore MD; Dr. Martir Whittington DO Theater Set Production Designer: Signed Normal [facility] CBC W/Diff, Automatedon 12 Absolute Lymph 1.98 X10 3/uL Normal 0.83-4.51 [facility] Comment on above: Performed By: #### L 500.4050, L501.9520, L100.0100, L500.4100, L501.1400, L501.9985 ####[facility] [address] [place], [address] Absolute Neut 5.4 X10 3/uL Normal 2.0-7.7 [facility] Comment on above: Performed By: #### L 500.4050, L501.9520, L100.0100, L500.4100, L501.1400, L501.9985 ####[facility] [address] [place], [address] Basophils/100 WBC (Bld) 0.8 % Normal 0-1 [facility] Comment on above: Performed By: #### L 500.4050, L501.9520, L100.0100, L500.4100, L501.1400, L501.9985 ####[facility] [address] [place], [address] Eosinophils/100 WBC (Bld) 3.4 % Normal 0-5 [facility] Comment on above: Performed By: #### L 500.4050, L501.9520, L100.0100, L500.4100, L501.1400, L501.9985 ####[facility] [address] [place], [address] Erythrocyte distribution width (RBC) [Ratio] 13.7 % Normal 11.6-14.6 [facility] Comment on above: Performed By: #### L 500.4050, L501.9520, L100.0100, L500.4100, L501.1400, L501.9985 ####[facility] [address] [place], [address] Hematocrit (Bld) [Volume fraction] 50.1 % Normal 40-54 [facility] Comment on above: Performed By: #### L 500.4050, L501.9520, L100.0100, L500.4100, L501.1400, L501.9985 ####[facility] [address] [place], [address] Hemoglobin (Bld) [Mass/Vol] 17.0 g/dL High 13.0-16.5 [facility] Comment on above: Performed By: #### L 500.4050, L501.9520, L100.0100, L500.4100, L501.1400, L501.9985 ####[facility] [address] [place], [address] IG% 0.500 Normal 0.0-0.9 [facility] Comment on above: Result Comment: IG% - Immature Granulocytes (promyelocytes, myelocytes and metamyelocytes) > 1% indicates that a LEFT SHIFT is Present. Performed By: #### L 500.4050, L501.9520, L100.0100, L500.4100, L501.1400, L501.9985 ####[facility] [address] [place], [address] Lymphocytes/100 WBC (Bld) 22.8 % Normal 19-41 [facility] Comment on above: Performed By: #### L 500.4050, L501.9520, L100.0100, L500.4100, L501.1400, L501.9985 ####[facility] [address] [place], [address] MCH (RBC) [Entitic mass] 29.7 pg Normal 27.0-32.0 [facility] Comment on above: Performed By: #### L 500.4050, L501.9520, L100.0100, L500.4100, L501.1400, L501.9985 ####[facility] [address] [place], [address] MCHC (RBC) [Mass/Vol] 33.9 g/dL Normal 32-36 [facility] [facility] Comment on above: Performed By: #### L 500.4050, L501.9520, L100.0100, L500.4100, L501.1400, L501.9985 ####[facility] [address] [place], [address] MCV (RBC) [Entitic vol] 87.6 fL Normal 80-94 [facility] Comment on above: Performed By: #### L 500.4050, L501.9520, L100.0100, L500.4100, L501.1400, L501.9985 ####[facility] [address] [place], [address] Monocytes/100 WBC (Bld) 10.5 % High 0-10 [facility] Comment on above: Performed By: #### L 500.4050, L501.9520, L100.0100, L500.4100, L501.1400, L501.9985 ####[facility] [address] [place], [address] Neutrophils/100 WBC (Bld) 62.0 % Normal 47-70 [facility] Comment on above: Performed By: #### L 500.4050, L501.9520, L100.0100, L500.4100, L501.1400, L501.9985 ####[facility] [address] [place], [address] Nucleated RBC (Bld) [#/Vol] 0 10*3/uL Normal 0-5 [facility] Comment on above: Performed By: #### L 500.4050, L501.9520, L100.0100, L500.4100, L501.1400, L501.9985 ####[facility] [address] [place], [address] Platelet mean volume (Bld) [Entitic vol] 9.8 fL Normal 6.2-12.0 [facility] Comment on above: Performed By: #### L 500.4050, L501.9520, L100.0100, L500.4100, L501.1400, L501.9985 ####[facility] [address] [place], [address] Platelets (Bld) [#/Vol] 257 10*3/uL Normal 150-450 [facility] Comment on above: Performed By: #### L 500.4050, L501.9520, L100.0100, L500.4100, L501.1400, L501.9985 ####[facility] [address] [place], [address] RBC (Bld) [#/Vol] 5.72 10*6/uL Normal 4.6-6.2 [facility] Comment on above: Performed By: #### L 500.4050, L501.9520, L100.0100, L500.4100, L501.1400, L501.9985 ####[facility] [address] [place], [address] RDW SD 43.7 fl Normal 35.1-43.9 [facility] Comment on above: Performed By: #### L 500.4050, L501.9520, L100.0100, L500.4100, L501.1400, L501.9985 ####[facility] [address] [place], [address] WBC (Bld) [#/Vol] 8.7 10*3/uL Normal 4.4-11.0 [facility] Comment on above: Performed By: #### L 500.4050, L501.9520, L100.0100, L500.4100, L501.1400, L501.9985 ####[facility] [address] [place], [address] Comprehensive Metabolic Prof ilon 02-21-2024 Albumin [Mass/Vol] 3.9 g/dL Normal 3.2-5.0 [facility] Comment on above: Performed By: #### L 500.4050, L501.9520, L100.0100, L500.4100, L501.1400, L501.9985 ####[facility] [address] [place], [address] Albumin/Globulin [Mass ratio] 1.1 {ratio} Normal 0.9-2.4 [facility] Comment on above: Performed By: #### L 500.4050, L501.9520, L100.0100, L500.4100, L501.1400, L501.9985 ####[facility] [address] [place], [address] ALK P 61 U/L Normal 45-117 [facility] Comment on above: Performed By: #### L 500.4050, L501.9520, L100.0100, L500.4100, L501.1400, L501.9985 ####[facility] [address] [place], [address] ALT [Catalytic activity/Vol] 74 U/L High 16-61 [facility] Comment on above: Performed By: #### L 500.4050, L501.9520, L100.0100, L500.4100, L501.1400, L501.9985 ####[facility] [address] [place], [address] AST [Catalytic activity/Vol] 25 U/L Normal 15-37 [facility] Comment on above: Performed By: #### L 500.4050, L501.9520, L100.0100, L500.4100, L501.1400, L501.9985 ####[facility] [address] [place], [address] Bilirubin [Mass/Vol] 0.70 mg/dL Normal 0.20-1.00 [facility] Comment on above: Result Comment: For patients on eltrombopag therapy, use of Dimension [place] TBIL is not recommended. Performed By: #### L 500.4050, L501.9520, L100.0100, L500.4100, L501.1400, L501.9985 ####[facility] [address] [place], [address] BUN/CRE 9.1 RATIO Low 10-20 [facility] Comment on above: Performed By: #### L 500.4050, L501.9520, L100.0100, L500.4100, L501.1400, L501.9985 ####[facility] [address] [place], [address] CA,Total 9.3 mg/dL Normal 8.5-10.1 [facility] Comment on above: Performed By: #### L 500.4050, L501.9520, L100.0100, L500.4100, L501.1400, L501.9985 ####[facility] [address] [place], [address] Chloride [Moles/Vol] 105 mmol/L Normal 98-107 [facility] Comment on above: Performed By: #### L 500.4050, L501.9520, L100.0100, L500.4100, L501.1400, L501.9985 ####[facility] [address] [place], [address] CO2 [Moles/Vol] 28.0 mmol/L Normal 21.0-32.0 [facility] Comment on above: Performed By: #### L 500.4050, L501.9520, L100.0100, L500.4100, L501.1400, L501.9985 ####[facility] [address] [place], [address] Creatinine [Mass/Vol] 1.32 mg/dL High 0.70-1.30 [facility] Comment on above: Result Comment: The validity of the calculated GFR GFRAA in patients over 70 years has not been determined. Clinical correlation is essential. Performed By: #### L 500.4050, L501.9520, L100.0100, L500.4100, L501.1400, L501.9985 ####[facility] [address] [place], [address] EST GFR - AA 72 mL/min Normal >60 [facility] Comment on above: Result Comment: Afri can Tajik GFR Calc Performed By: #### L 500.4050, L501.9520, L100.0100, L500.4100, L501.1400, L501.9985 ####[facility] [address] [place], [address] GAP 6 Normal 5-15 [facility] Comment on above: Performed By: #### L 500.4050, L501.9520, L100.0100, L500.4100, L501.1400, L501.9985 ####[facility] [address] [place], [address] GFR/1.73 sq M.predicted among non-blacks MDRD (S/P/Bld) [Vol rate/Area] 59 mL/min/{1.73_m2} Low >60 [facility] Comment on above: Result Comment: Non- GFR Calc Performed By: #### L 500.4050, L501.9520, L100.0100, L500.4100, L501.1400, L501.9985 ####[facility] [address] [place], [address] Globulin (S) [Mass/Vol] 3.4 g/dL Normal 2.2-4.2 [facility] Comment on above: Performed By: #### L 500.4050, L501.9520, L100.0100, L500.4100, L501.1400, L501.9985 ####[facility] [address] [place], [address] Glucose [Mass/Vol] 113 mg/dL High 74-106 [facility] Comment on above: Result Comment: Fast ing Glucose result from 100 to 125 mg/dL suggests IMPAIRED HOMEOSTASIS per A.D.A. criteria. Performed By: #### L 500.4050, L501.9520, L100.0100, L500.4100, L501.1400, L501.9985 ####[facility] [address] [place], [address] Potassium [Moles/Vol] 4.4 mmol/L Normal 3.5-5.1 [facility] Comment on above: Performed By: #### L 500.4050, L501.9520, L100.0100, L500.4100, L501.1400, L501.9985 ####[facility] [address] [place], [address] Sodium [Moles/Vol] 138 mmol/L Normal 136-145 [facility] Comment on above: Performed By: #### L 500.4050, L501.9520, L100.0100, L500.4100, L501.1400, L501.9985 ####[facility] [address] [place], [address] T PROT 7.3 g/dL Normal 6.4-8.2 [facility] Comment on above: Performed By: #### L 500.4050, L501.9520, L100.0100, L500.4100, L501.1400, L501.9985 ####[facility] [address] [place], [address] Urea nitrogen [Mass/Vol] 12 mg/dL Normal 7-18 [facility] Comment on above: Performed By: #### L 500.4050, L501.9520, L100.0100, L500.4100, L501.1400, L501.9985 ####[facility] [address] [place], [address] Hemoglobin A1con 02-21-2024 HbA1c (Bld) [Mass fraction] 5.7 % High 3.8-5.6 [facility] Comment on above: Result Comment: Norm al < 5.7 % Prediabetic 5.7 - 6.4 % Diabetic >or= 6.5 % Please note range changes. Performed By: #### L 500.4050, L501.9520, L100.0100, L500.4100, L501.1400, L501.9985 ####[facility] [address] [place], [address] Lipid Profileon 02-21-2024 Cholesterol [Mass/Vol] 281 mg/dL High 200 [facility] Comment on above: Result Comment: <200 mg/dL Desirable 200-240 mg/dL Borderline >240 mg/dL High Risk Performed By: #### L 500.4050, L501.9520, L100.0100, L500.4100, L501.1400, L501.9985 ####[facility] [address] [place], [address] Cholesterol in HDL [Mass/Vol] 44 mg/dL Normal [facility] Comment on above: Result Comment: The drugs N-Acetylcysteine and Metamizole may falsely depress this assay. Reference Range HDL <40 mg/dL Low HDL Cholesterol HDL >or= 60 mg/dL High HDL Cholesterol Performed By: #### L 500.4050, L501.9520, L100.0100, L500.4100, L501.1400, L501.9985 ####[facility] [address] [place], [address] Cholesterol in LDL [Mass/Vol] 185 mg/dL High 0-130 [facility] Comment on above: Performed By: #### L 500.4050, L501.9520, L100.0100, L500.4100, L501.1400, L501.9985 ####[facility] [address] [place], [address] Cholesterol in VLDL [Mass/Vol] 52 mg/dL High 5-40 [facility] Comment on above: Performed By: #### L 500.4050, L501.9520, L100.0100, L500.4100, L501.1400, L501.9985 ####[facility] [address] [place], [address] Triglyceride [Mass/Vol] 260 mg/dL High [facility] Comment on above: Result Comment: The drugs N-Acetylcysteine and Metamizole may falsely depress this assay. Serum Triglycerides Reference Interval Normal <150 mg/dL Borderline high 150 - 199 mg/dL High 200 - 499 mg/dL Very High > or = 500 mg/dL Performed By: #### L 500.4050, L501.9520, L100.0100, L500.4100, L501.1400, L501.9985 ####[facility] [address] [place], [address] Thyroid Stim Hormone (TSH)on 02-21-2024 TSH 2.290 uIU/mL Normal 0.358-3.740 [facility] Comment on above: Performed By: #### L 500.4050, L501.9520, L100.0100, L500.4100, L501.1400, L501.9985 ####[facility] [address], [address] Uric Acidon 02-21-2024 URIC 6.9 mg/dL Normal 3.5-7.2 [facility] Comment on above: Result Comment: The drugs N-Acetylcysteine and Metamizole may falsely depress this assay. Performed By: #### L 500.4050, L501.9520, L100.0100, L500.4100, L501.1400, L501.9985 ####[facility] [address] [place], [address] Basophil percentageon 2023 Basophil percentage < 0.01 ng/mL 0.0-4.0 [facility] Comment on above: This test was perfor med using the TPSA assay method for the[employer] chemistry system. Values obtained with differentassay methods cannot be used interchangably.When changing PSA assays in the course of monitoring apatient, additional sequential testing should be carriedout to confirm baseline values. Pathology studyon 03-28-2023 Scan Result See Scanned Result Normal [facility] Comment on above: Performed By: #### 1 1526-1 #### [facility] [address] [place] [address] Bacteria Ur Culton 3 Bacteria identified Cx Nom (U) Culture, Urine Status = F Mixed isidro, no uropathogens present. Suggest repeat specimen, if clinically indicated. Normal [facility] Comment on above: Performed By: #### 6 30-4 #### [facility] [address] [place] [address] Basic metabolic 2000 panelon 03-09-2023 Anion gap [Moles/Vol] 6 mmol/L Normal 6-18 [facility] Comment on above: Performed By: #### 2 4321-2 #### [facility] [address] [place] [address] Calcium [Mass/Vol] 9.5 mg/dL Normal 8.9-10.3 [facility] Comment on above: Performed By: #### 2 4321-2 #### [facility] [address] [place] [address] Chloride [Moles/Vol] 105 mmol/L Normal 98-107 [facility] Comment on above: Performed By: #### 2 4321-2 #### [facility] [address] [place] [address] CO2 [Moles/Vol] 26 mmol/L Normal 22-[address] [facility] Comment on above: Performed By: #### 2 4321-2 #### [facility] [address] [place] [address] Creatinine [Mass/Vol] 1.14 mg/dL Normal 0.60-1.30 [facility] Comment on above: Performed By: #### 2 4321-2 #### [facility] [address] [place] [address] GFR/1.73 sq M.predicted among non-blacks MDRD (S/P/Bld) [Vol rate/Area] 75 mL/min/{1.73_m2} Normal >=60 [facility] Comment on above: Result Comment: Calc ulation based on the?Chronic Kidney Disease Epidemiology Collaboration (CKD-EPI) equation refit?without adjustment for race. Performed By: #### 2 4321-2 #### [facility] [address] [place] [address] Glucose [Mass/Vol] 132 mg/dL High 70-99 [facility] Comment on above: Performed By: #### 2 4321-2 #### [facility] [address] [place] [address] Potassium [Moles/Vol] 3.8 mmol/L Normal 3.6-5.1 [facility] Comment on above: Performed By: #### 2 4321-2 #### [facility] [address] [place] [address] Sodium [Moles/Vol] 137 mmol/L Normal 136-145 [facility] Comment on above: Performed By: #### 2 4321-2 #### [facility] [address] [place] [address] Urea nitrogen [Mass/Vol] 12 mg/dL Normal 8-20 [facility] Comment on above: Performed By: #### 2 4321-2 #### [facility] [address] [place] [address] Urea nitrogen/Creatinine [Mass ratio] 10.5 mg/mg Low 12.0-20.0 [facility] Comment on above: Performed By: #### 2 4321-2 #### [facility] [address] [place] [address] Blood type and Indirect anti body screen panel (Bld)on 03-09-2023 ABO group Nom (Bld) AB Normal [facility] Comment on above: Performed By: #### 3 4532-2 #### [facility] [address] [place] [address] Rh Type Positive Normal [facility] Comment on above: Performed By: #### 3 4532-2 #### [facility] [address] [place] [address] Hemogram and platelets WO di fferential panel (Bld)on 03-09-2023 Erythrocyte distribution width (RBC) [Ratio] 13.4 % Normal 11.0-14.8 [facility] Comment on above: Performed By: #### 2 4317-0 #### [facility] [address] [place] [address] Hematocrit (Bld) [Volume fraction] 48.8 % Normal 39.0-49.0 [facility] Comment on above: Performed By: #### 2 7-0 #### [facility] [address] [place] [address] Hemoglobin (Bld) [Mass/Vol] 16.3 g/dL Normal 13.5-17.5 [facility] Comment on above: Performed By: #### 2 7-0 #### [facility] [address] [place] [address] MCH 28.7 pcg Normal 27.0-34.0 [facility] Comment on above: Performed By: #### 2 4316-0 #### [facility] [address] [place] [address] MCHC (RBC) [Mass/Vol] 33.4 g/dL Normal 30.8-35.3 [facility] Comment on above: Performed By: #### 2 7-0 #### [facility] [address] [place] [address] MCV (RBC) [Entitic vol] 86.1 fL Normal 80.0-97.0 [facility] Comment on above: Performed By: #### 2 4317-0 #### [facility] [address] [place] [address] Platelet mean volume (Bld) [Entitic vol] 10.4 fL Normal 6.2-12.1 [facility] Comment on above: Performed By: #### 2 4317-0 #### [facility] [address] [place] [address] Platelets (Bld) [#/Vol] 214 10*3/uL Normal 142-424 [facility] Comment on above: Performed By: #### 2 4317-0 #### [facility] [address] [place] [address] RBC (Bld) [#/Vol] 5.67 10*6/uL Normal 4.30-5.70 [facility] Comment on above: Performed By: #### 2 4317-0 #### [facility] [address] [place] [address] WBC (Bld) [#/Vol] 6.8 10*3/uL Normal 4.6-10.2 [facility] Comment on above: Performed By: #### 2 4317-0 #### [facility] [address] [place] [address] PT Coag (PPP) [Time]on 03-09 aPTT Coag (Bld) [Time] 25.6 s Normal 23.3-35.3 [facility] Comment on above: Order Comment: The r ecommended therapeutic INR range for most cardiac indications is 2.0-3.0 For high intensity therapy (i.e. mechanical heart valves), the recommended range is 2.5-3.5 Performed By: #### 5 902-2 #### [facility] [address] [place] [address] URINALYSIS CHEM ONLYon 03-09 Bilirubin, Urine Negative Normal Negative [facility] Comment on above: Performed By: #### L [id number] #### [facility] [address] [place] [address] Blood, Urine Negative Normal Negative, Trace [facility] Comment on above: Performed By: #### L [id number] #### [facility] [address] [place] [address] Clarity (U) Clear Normal Clear [facility] Comment on above: Performed By: #### L [id number] #### [facility] [address] [place] [address] Color (U) Colorless Abnormal Yellow [facility] Comment on above: Performed By: #### L [id number] #### [facility] [address] [place] [address] Glucose Ql (U) Normal Normal Normal [facility] Comment on above: Performed By: #### L [id number] #### [facility] [address] [place] [address] Ketones Ql (U) Negative Normal Negative [facility] Comment on above: Performed By: #### L [id number] #### [facility] [address] [place] [address] Leukocytes, Urine Negative Normal Negative [facility] Comment on above: Performed By: #### L [id number] #### [facility] [address] [place] [address] Nitrite, Urine Negative Normal Negative [facility] Comment on above: Performed By: #### L [id number] #### [facility] [address] [place] [address] pH (U) 6.0 [pH] Normal 5.0-8.0 [facility] Comment on above: Performed By: #### L [id number] #### [facility] [address] [place] [address] Protein, Urine Negative Normal Negative [facility] Comment on above: Performed By: #### L [id number] #### [facility] [address] [place] [address] Specific [place] Urine 1.007 Normal 1.002-1.030 [facility] Comment on above: Performed By: #### L [id number] #### [facility] [address] [place] [address] Urobilinogen, Urine Normal Normal Normal [facility] Comment on above: Performed By: #### L [id number] #### [facility] [address] [place] [address] Basophil percentageOrdered B y: Nehal Moore on 01-18-2023 Bilirubin [Mass/Vol] 0.70 mg/dL 0.20-1.00 [facility] Comment on above: For patients on eltr ombopag therapy, use of Dimension [place] TBIL is not recommended. Chloride [Moles/Vol] 105 mmol/L 98-107 [facility] Cholesterol [Mass/Vol] 179 mg/dL <200 [facility] Comment on above: <200 mg/dL Desirable 200-240 mg/dL Borderline >240 mg/dL High Risk Glucose [Mass/Vol] 107 mg/dL 74-106 [facility] Comment on above: Fasting Glucose resu lt from 100 to 125 mg/dL suggests IMPAIRED HOMEOSTASIS per A.D.A. criteria. Potassium [Moles/Vol] 4.0 mmol/L 3.5-5.1 [facility] Protein [Mass/Vol] 7.1 g/dL 6.4-8.2 [facility] Sodium [Moles/Vol] 139 mmol/L 136-145 [facility] Triglyceride [Mass/Vol] 215 mg/dL <199 [facility] Comment on above: The drugs N-Acetylcy steine and Metamizole may falsely depress this assay.Serum Triglycerides Reference Interval Normal <150 mg/dL Borderline high 150 - 199 mg/dL High 200 - 499 mg/dL Very High > or = 500 mg/dL Laboratory - Chemistry and C hemistry - challengeOrdered By: Nehal Moore on 01-18-2023 ALP [Catalytic activity/Vol] 65 U/L 45-117 [facility] ALT [Catalytic activity/Vol] 57 U/L 16-61 [facility] CO2 [Moles/Vol] 32.0 mmol/L 21.0-32.0 [facility] Globulin (S) [Mass/Vol] 3.2 g/dL 2.2-4.2 [facility] Urea nitrogen/Creatinine [Mass ratio] 8.3 mg/mg 10-20 [facility] No Panel InformationOrdered By: Nehal Moore on 01-18-2023 Estimated GFR (MDRD) Amer 65 mL/min >60 [facility] Comment on above: GFR Calc Estimated GFR (MDRD) Non-Af Amer 54 mL/min >60 [facility] Comment on above: Non- GFR Calc Prostate Specific Antigen Total 10.60 ng/mL 0.0-4.0 [facility] Comment on above: This test was perfor med using the TPSA assay method for the[employer] chemistry system. Values obtained with differentassay methods cannot be used interchangably.When changing PSA assays in the course of monitoring apatient, additional sequential testing should be carriedout to confirm baseline values. Thyroid Stimulating Hormone (TSH) 1.99 uIU/mL 0.358-3.74 [facility] Serum or plasma albumin tolu urement (mass/volume)Ordered By: Nehal Moore on 01-18-2023 Albumin [Mass/Vol] 3.9 g/dL 3.2-5.0 [facility] Serum or plasma albumin/glob ulin mass ratioOrdered By: Nehal Moore on 01-18-2023 Albumin/Globulin [Mass ratio] 1.2 {ratio} 0.9-2.4 [facility] Serum or plasma calcium tolu urement (mass/volume)Ordered By: Nehal Moore on 01-18-2023 Calcium [Mass/Vol] 9.1 mg/dL 8.5-10.1 [facility] Serum or plasma cholesterol in HDL measurement (mass/volume)Ordered By: Nehal Moore on 01-18-2023 Cholesterol in HDL [Mass/Vol] 49 mg/dL >40 [facility] Comment on above: The drugs N-Acetylcy steine and Metamizole may falsely depress this assay. Reference Range HDL <40 mg/dL Low HDL Cholesterol HDL >or= 60 mg/dL High HDL Cholesterol Serum or plasma cholesterol in VLDL measurement (mass/volume)Ordered By: Nehal Moore on 01-18-2023 Cholesterol in VLDL [Mass/Vol] 43 mg/dL 5-40 [facility] Serum or plasma creatinine m easurement (mass/volume)Ordered By: Nehal Moore on 01-18-2023 Creatinine [Mass/Vol] 1.44 mg/dL 0.70-1.30 [facility] Comment on above: The validity of the calculated GFR & GFRAA in patients over 70 years has not been determined. Clinical correlation is essential. Serum or plasma low density lipoprotein (LDL) cholesterol measurement (mass/volume)Ordered By: Nehal Moore on 01-18-2023 Cholesterol in LDL [Mass/Vol] 87 mg/dL 0-130 [facility] Serum or plasma urea nitroge n measurement (mass/volume)Ordered By: Nehal Moore on 01-18-2023 Urea nitrogen [Mass/Vol] 12 mg/dL 7-18 [facility] Serum or plasma uric acid me asurement (mass/volume)Ordered By: Nehal Moore on 01-18-2023 Urate [Mass/Vol] 7.6 mg/dL 3.5-7.2 [facility] Comment on above: The drugs N-Acetylcy steine and Metamizole may falsely depress this assay. Thin prep Papanicolaou smear with manual screeningOrdered By: Nehal Moore on 01-18-2023 Thin prep Papanicolaou smear with manual screening 28 U/L 15-37 [facility] Thin prep Papanicolaou smear with manual screening 2 5-15 [facility] Whole blood hemoglobin A1c/t otal hemoglobin ratio (mass fraction)Ordered By: Nehal Moore on 01-18-2023 HbA1c (Bld) [Mass fraction] 5.8 % 3.8-5.6 [facility] Comment on above: Normal < 5.7 % Predi abetic 5.7 - 6.4 % Diabetic >or= 6.5 % Please note range changes. Basophil percentageOrdered B y: Dr. Longoria on 05-24-2022 Chloride [Moles/Vol] 103 mmol/L 98-107 [facility] Cholesterol [Mass/Vol] 180 mg/dL <200 [facility] Comment on above: <200 mg/dL Desirable 200-240 mg/dL Borderline >240 mg/dL High Risk Glucose [Mass/Vol] 108 mg/dL 74-106 [facility] Comment on above: Fasting Glucose resu lt from 100 to 125 mg/dL suggests IMPAIRED HOMEOSTASIS per A.D.A. criteria. Potassium [Moles/Vol] 4.7 mmol/L 3.5-5.1 [facility] Sodium [Moles/Vol] 139 mmol/L 136-145 [facility] Triglyceride [Mass/Vol] 183 mg/dL <199 [facility] Comment on above: The drugs N-Acetylcy steine and Metamizole may falsely depress this assay.Serum Triglycerides Reference Interval Normal <150 mg/dL Borderline high 150 - 199 mg/dL High 200 - 499 mg/dL Very High > or = 500 mg/dL Laboratory - Chemistry and C hemistry - challengeOrdered By: Dr. Longoria on 05-24-2022 CO2 [Moles/Vol] 31.0 mmol/L 21.0-32.0 [facility] Urea nitrogen/Creatinine [Mass ratio] 10.9 mg/mg 10-20 [facility] No Panel InformationOrdered By: Dr. Longoria on 05-24-2022 Estimated GFR (MDRD) Amer 69 mL/min >60 [facility] Comment on above: GFR Calc Estimated GFR (MDRD) Non-Af Amer 57 mL/min >60 [facility] Comment on above: Non- GFR Calc Prostate Specific Antigen Screen 6.83 ng/mL 0.00-4.00 [facility] Comment on above: This test was perfor med using the TPSA assay method [facility]. Values obtained with differentassay methods cannot be used interchangably.When changing PSA assays in the course of monitoring apatient, additional sequential testing should be carriedout to confirm baseline values. Thyroid Stimulating Hormone (TSH) 1.70 uIU/mL 0.358-3.74 [facility] Serum or plasma calcium tolu urement (mass/volume)Ordered By: Dr. Longoria on 05-24-2022 Calcium [Mass/Vol] 9.5 mg/dL 8.5-10.1 [facility] Serum or plasma cholesterol in HDL measurement (mass/volume)Ordered By: Dr. Longoria on 05-24-2022 Cholesterol in HDL [Mass/Vol] 52 mg/dL >40 [facility] Comment on above: The drugs N-Acetylcy steine and Metamizole may falsely depress this assay. Reference Range HDL <40 mg/dL Low HDL Cholesterol HDL >or= 60 mg/dL High HDL Cholesterol Serum or plasma cholesterol in VLDL measurement (mass/volume)Ordered By: Dr. Longoria on 05-24-2022 Cholesterol in VLDL [Mass/Vol] 37 mg/dL 5-40 [facility] Serum or plasma creatinine m easurement (mass/volume)Ordered By: Dr. Longoria on 05-24-2022 Creatinine [Mass/Vol] 1.38 mg/dL 0.70-1.30 [facility] Comment on above: The validity of the calculated GFR & GFRAA in patients over 70 years has not been determined. Clinical correlation is essential. Serum or plasma low density lipoprotein (LDL) cholesterol measurement (mass/volume)Ordered By: Dr. Longoria on 05-24-2022 Cholesterol in LDL [Mass/Vol] 91 mg/dL 0-130 [facility] Serum or plasma urea nitroge n measurement (mass/volume)Ordered By: Dr. Longoria on 05-24-2022 Urea nitrogen [Mass/Vol] 15 mg/dL 7-18 [facility] Serum or plasma uric acid me asurement (mass/volume)Ordered By: Dr. Longoria on 05-24-2022 Urate [Mass/Vol] 6.3 mg/dL 3.5-7.2 [facility] Comment on above: The drugs N-Acetylcy steine and Metamizole may falsely depress this assay. Thin prep Papanicolaou smear with manual screeningOrdered By: Dr. Longoria on 05-24-2022 Thin prep Papanicolaou smear with manual screening 5 5-15 [facility] Whole blood hemoglobin A1c/t otal hemoglobin ratio (mass fraction)Ordered By: Dr. Longoria on 05-24-2022 HbA1c (Bld) [Mass fraction] 5.7 % 3.8-5.6 [facility] Comment on above: Normal < 5.7 % Predi abetic 5.7 - 6.4 % Diabetic >or= 6.5 % Please note range changes. Absolute lymphocyte counton 05-14-2021 Lymphocytes Auto (Unsp spec) [#/Vol] 3.02 10*3/uL 0.83-4.51 [facility] Work Phone: Basophil percentageon 2021 Basophils/100 WBC (Bld) 0.6 % 0-1 [facility] Work Phone: Chloride [Moles/Vol] 102 mmol/L 98-107 [facility] Work Phone: Eosinophils/100 WBC (Bld) 1.6 % 0-5 [facility] Work Phone: Glucose [Mass/Vol] 187 mg/dL 74-106 [facility] Work Phone: Comment on above: Fasting Glucose resu lt greater than or equal to 126 mg/dL suggests DIABETES MELLITUS per A.D.A. criteria. Neutrophils (Bld) [#/Vol] 6.2 10*3/uL 2.0-7.7 [facility] Work Phone: Neutrophils/100 WBC (Bld) 58.1 % 47-70 [facility] Work Phone: Potassium [Moles/Vol] 3.7 mmol/L 3.5-5.1 [facility] Work Phone: Comment on above: Slight Hemolysis, Re sult may be falsely increased. Sodium [Moles/Vol] 135 mmol/L 136-145 [facility] Work Phone: WBC (Bld) [#/Vol] 10.6 10*3/uL 4.4-11.0 [facility] Work Phone: Blood erythrocytes count (nu mber/volume)on 05-14-2021 RBC (Bld) [#/Vol] 5.52 10*6/uL 4.6-6.2 [facility] Work Phone: Blood hemoglobin measurement (mass/volume)on 05-14-2021 Hemoglobin (Bld) [Mass/Vol] 16.1 g/dL 13.0-16.5 [facility] Work Phone: Blood lymphocytes/100 leukoc yteson 05-14-2021 Lymphocytes/100 WBC (Bld) 28.4 % 19-41 [facility] Work Phone: Blood monocytes/100 leukocyt eson 05-14-2021 Monocytes/100 WBC (Bld) 11.0 % 0-10 [facility] Work Phone: Blood platelet mean volumeon 05-14-2021 Platelet mean volume (Bld) [Entitic vol] 10.3 fL 6.2-12.0 [facility] Work Phone: Determination of erythrocyte mean corpuscular volume (MCV)on 05-14-2021 MCV (RBC) [Entitic vol] 87.9 fL 80-94 [facility] Work Phone: Hematocrit Auto (Bld) [Volum e fraction]on 05-14-2021 Hematocrit (Bld) [Volume fraction] 48.5 % 40-54 [facility] Work Phone: Laboratory - Chemistry and C hemistry - challengeon 05-14-2021 CO2 [Moles/Vol] 27.0 mmol/L 21.0-32.0 [facility] Work Phone: Magnesium [Mass/Vol] 1.8 mg/dL 1.6-2.6 [facility] Work Phone: Comment on above: Slight Hemolysis, Re sult may be falsely increased. Natriuretic peptide B (Bld) [Mass/Vol] pg/mL 0-100 [facility] Work Phone: Urea nitrogen/Creatinine [Mass ratio] 9.6 mg/mg 10-20 [facility] Work Phone: Laboratory - Hematology and Cell countson 05-14-2021 Erythrocyte distribution width (RBC) [Entitic vol] 41.9 fL 35.1-43.9 [facility] Work Phone: Erythrocyte distribution width (RBC) [Ratio] 13.0 % 11.6-14.6 [facility] Work Phone: Immature granulocytes/100 WBC (Bld) 0.300 % 0.0-0.9 [facility] Work Phone: Comment on above: IG% - Immature Granu locytes (promyelocytes, myelocytes and metamyelocytes) > 1% indicates that a LEFT SHIFT is Present. MCH (RBC) [Entitic mass] 29.2 pg 27.0-32.0 [facility] Work Phone: Nucleated RBC/100 WBC (Bld) [Ratio] 0 % 0-5 [facility] Work Phone: MCHC Auto (RBC) [Mass/Vol]on 05-14-2021 MCHC (RBC) [Mass/Vol] 33.2 g/dL 32-36 [facility] Work Phone: No Panel Informationon 05-14 Troponin I High Sensitivity 8 pg/mL 3.0-78.0 [facility] Work Phone: Comment on above: Please Note: [place] t Units and Gender Specific Reference Ranges. For more information see Policy Stat Procedure [place] High Sensitivity Troponin (TNIH) and attachments. Estimated Creatinine Clearance Calc 59.72 ml/min [facility] Work Phone: Estimated GFR (MDRD) Amer 65 mL/min >60 [facility] Work Phone: Comment on above: GFR Calc Estimated GFR (MDRD) Non-Af Amer 53 mL/min >60 [facility] Work Phone: Comment on above: Non- GFR Calc Thyroid Stimulating Hormone (TSH) 2.59 uIU/mL 0.358-3.74 [facility] Work Phone: Platelets bldon 05-14-2021 Platelets (Bld) [#/Vol] 280 10*3/uL 150-450 [facility] Work Phone: Serum or plasma calcium tolu urement (mass/volume)on 05-14-2021 Calcium [Mass/Vol] 9.4 mg/dL 8.5-10.1 [facility] Work Phone: Serum or plasma creatinine m easurement (mass/volume)on 05-14-2021 Creatinine [Mass/Vol] 1.46 mg/dL 0.70-1.30 [facility] Work Phone: Comment on above: The validity of the calculated GFR & GFRAA in patients over 70 years has not been determined. Clinical correlation is essential. Serum or plasma urea nitroge n measurement (mass/volume)on 05-14-2021 Urea nitrogen [Mass/Vol] 14 mg/dL 7-18 [facility] Work Phone: Thin prep Papanicolaou smear with manual screeningon 05-14-2021 Thin prep Papanicolaou smear with manual screening 6 5-15 [facility] Work Phone: Basophil percentageon 2021 Bilirubin [Mass/Vol] 0.60 mg/dL 0.20-1.00 [facility] Work Phone: Comment on above: For patients on eltr ombopag therapy, use of Dimension [place] TBIL is not recommended. Chloride [Moles/Vol] 104 mmol/L 98-107 [facility] Work Phone: Cholesterol [Mass/Vol] 218 mg/dL <200 [facility] Work Phone: Comment on above: <200 mg/dL Desirable 200-240 mg/dL Borderline >240 mg/dL High Risk Glucose [Mass/Vol] 103 mg/dL 74-106 [facility] Work Phone: Comment on above: Fasting Glucose resu lt from 100 to 125 mg/dL suggests IMPAIRED HOMEOSTASIS per A.D.A. criteria. Potassium [Moles/Vol] 4.3 mmol/L 3.5-5.1 [facility] Work Phone: Protein [Mass/Vol] 7.5 g/dL 6.4-8.2 [facility] Work Phone: Sodium [Moles/Vol] 138 mmol/L 136-145 [facility] Work Phone: Triglyceride [Mass/Vol] 216 mg/dL [facility] Work Phone: Comment on above: The drugs N-Acetylcy steine and Metamizole may falsely depress this assay.Serum Triglycerides Reference Interval Normal <150 mg/dL Borderline high 150 - 199 mg/dL High 200 - 499 mg/dL Very High > or = 500 mg/dL Laboratory - Chemistry and C hemistry - challengeon 05-13-2021 ALP [Catalytic activity/Vol] 59 U/L 45-117 [facility] Work Phone: ALT [Catalytic activity/Vol] 54 U/L 16-61 [facility] Work Phone: CO2 [Moles/Vol] 30.0 mmol/L 21.0-32.0 [facility] Work Phone: Globulin (S) [Mass/Vol] 3.4 g/dL 2.2-4.2 [facility] Work Phone: Urea nitrogen/Creatinine [Mass ratio] 8.0 mg/mg 10-20 [facility] Work Phone: No Panel Informationon 05-13 Estimated GFR (MDRD) Amer 69 mL/min >60 [facility] Work Phone: Comment on above: GFR Calc Estimated GFR (MDRD) Non-Af Amer 57 mL/min >60 [facility] Work Phone: Comment on above: Non- GFR Calc Serum or plasma albumin tolu urement (mass/volume)on 05-13-2021 Albumin [Mass/Vol] 4.1 g/dL 3.2-5.0 [facility] Work Phone: Serum or plasma albumin/glob ulin mass ratioon 05-13-2021 Albumin/Globulin [Mass ratio] 1.2 {ratio} 0.9-2.4 [facility] Work Phone: Serum or plasma calcium tolu urement (mass/volume)on 05-13-2021 Calcium [Mass/Vol] 9.6 mg/dL 8.5-10.1 [facility] Work Phone: Serum or plasma cholesterol in HDL measurement (mass/volume)on 05-13-2021 Cholesterol in HDL [Mass/Vol] 47 mg/dL [facility] Work Phone: Comment on above: The drugs N-Acetylcy steine and Metamizole may falsely depress this assay. Reference Range HDL <40 mg/dL Low HDL Cholesterol HDL >or= 60 mg/dL High HDL Cholesterol Serum or plasma cholesterol in VLDL measurement (mass/volume)on 05-13-2021 Cholesterol in VLDL [Mass/Vol] 43 mg/dL 5-40 [facility] Work Phone: Serum or plasma creatinine m easurement (mass/volume)on 05-13-2021 Creatinine [Mass/Vol] 1.38 mg/dL 0.70-1.30 [facility] Work Phone: Comment on above: The validity of the calculated GFR & GFRAA in patients over 70 years has not been determined. Clinical correlation is essential. Serum or plasma low density lipoprotein (LDL) cholesterol measurement (mass/volume)on 05-13-2021 Cholesterol in LDL [Mass/Vol] 128 mg/dL 0-130 [facility] Work Phone: Serum or plasma urea nitroge n measurement (mass/volume)on 05-13-2021 Urea nitrogen [Mass/Vol] 11 mg/dL 7-18 [facility] Work Phone: Serum or plasma uric acid me asurement (mass/volume)on 05-13-2021 Urate [Mass/Vol] 7.0 mg/dL 3.5-7.2 [facility] Work Phone: Comment on above: The drugs N-Acetylcy steine and Metamizole may falsely depress this assay. Thin prep Papanicolaou smear with manual screeningon 05-13-2021 Thin prep Papanicolaou smear with manual screening 24 U/L 15-37 [facility] Work Phone: Thin prep Papanicolaou smear with manual screening 4 5-15 [facility] Work Phone: Vital Signs Date Time Vital Sign Value Performing Clinician Faci lity 03-28-2023 15:50-0500 Diastolic blood pressure 63 mm[Hg] Jeremie Riley MD Work Phone: [facility] 03-28-2023 15:50-0500 Systolic blood pressure 114 mm[Hg] Jeremie Riley MD Work Phone: [facility] 03-28-2023 15:10-0500 Body temperature 97.9 [degF] Jeremie Riley MD Work Phone: [facility] 03-28-2023 15:10-0500 Heart rate 64 /min Jeremie Riley MD Work Phone: [facility] 03-28-2023 15:10-0500 Respiratory rate 14 /min Jeremie Riley MD Work Phone: [facility] 03-28-2023 15:10-0500 SaO2% (BldA) [Mass fraction] 97 % Jeremie Riley MD Work Phone: [facility] 03-28-2023 08:45-0500 Body height 177.8 cm Jeremie Riley MD Work Phone: [facility] 03-28-2023 08:45-0500 Body mass index (BMI) [Ratio] 36.06 kg/m2 Jeremie Riley MD Work Phone: [facility] 03-28-2023 08:45-0500 Body weight 114 kg Jeremie Riley MD Work Phone: [facility] 04-29-2022 10:18-0500 Body height 177.[address] Renato Rider Work Phone: [facility] 04-29-2022 10:13-0500 Body mass index (BMI) [Ratio] 37.5 kg/m2 Dr. Renato Rider Work Phone: [facility] 04-29-2022 10:13-0500 Body weight 118.[address] Renato Rider Work Phone: [facility] 04-29-2022 10:13-0500 Diastolic blood pressure 82 mm[Hg] Dr. Renato Rider Work Phone: [facility] 04-29-2022 10:13-0500 Heart rate 66 /min Dr. Renato Rider Work Phone: [facility] 04-29-2022 10:13-0500 Respiratory rate 18 /min Dr. Renato Rider Work Phone: [facility] 04-29-2022 10:13-0500 SaO2% (BldA) [Mass fraction] 94 % Dr. Renato Rider Work Phone: [facility] 04-29-2022 10:13-0500 Systolic blood pressure 138 mm[Hg] Dr. Renato Rider Work Phone: [facility] 05-17-2021 13:26-0500 Body height 177.[address] Renato Rider Work Phone: [facility] Work Phone: 05-17-2021 13:26-0500 Body mass index (BMI) [Ratio] 36.1 kg/m2 Dr. Renato Rider Work Phone: [facility] Work Phone: 05-17-2021 13:26-0500 Body weight 114.[address] Renato Rider Work Phone: [facility] Work Phone: 05-17-2021 13:26-0500 Diastolic blood pressure 89 mm[Hg] Dr. Renato Rider Work Phone: [facility] Work Phone: 05-17-2021 13:26-0500 Heart rate 62 /min Dr. Renato Rider Work Phone: [facility] Work Phone: 05-17-2021 13:26-0500 Respiratory rate 16 /min Dr. Renato Rider Work Phone: [facility] Work Phone: 05-17-2021 13:26-0500 SaO2% (BldA) [Mass fraction] 96 % Dr. Renato Rider Work Phone: [facility] Work Phone: 05-17-2021 13:26-0500 Systolic blood pressure 131 mm[Hg] Dr. Renato Rider Work Phone: [facility] Work Phone: 05-14-2021 20:00-0500 Diastolic blood pressure 78 mm[Hg] Dr. Renato Rider Work Phone: [facility] Work Phone: 05-14-2021 20:00-0500 Heart rate 70 /min Dr. Renato Rider Work Phone: [facility] Work Phone: 05-14-2021 20:00-0500 Respiratory rate 23 /min Dr. Renato Rider Work Phone: [facility] Work Phone: 05-14-2021 20:00-0500 SaO2% (BldA) [Mass fraction] 98 % Dr. Renato Rider Work Phone: [facility] Work Phone: 05-14-2021 20:00-0500 Systolic blood pressure 137 mm[Hg] Dr. Renato Rider Work Phone: [facility] Work Phone: 05-14-2021 16:42-0500 Body mass index (BMI) [Ratio] 37.3 kg/m2 Dr. Renato Rider Work Phone: [facility] Work Phone: 05-14-2021 16:42-0500 Body temperature 98.1 [degF] Dr. Renato Rider Work Phone: [facility] Work Phone: 05-14-2021 16:42-0500 Body weight 117.[address] Renato Rider Work Phone: [facility] Work Phone: Encounters Encounter Date Encounter Type Care Provider Facility Start: 01-21-2025 ambulatory Allison Wesley Facility:[facility] Start: 01-20-2025 ambulatory [facility] Facility: [facility] Start: 01-19-2025 End: 01-19-2025 Emergency department patient visit [facility] Facility:[facility] Start: 09-26-2024 ambulatory [facility] Facility: [facility] Start: 07-02-2024 End: 07-[facility] Start: 03-26-2024 End: 03-26-2024 ambulatory [facility] Facility:[facility] Start: 02-21-2024 End: 02-21-2024 ambulatory [facility] Facility:[facility] Start: 06-30-2023 End: 06-30-2023 ambulatory [facility] Work Phone: Start: 06-30-2023 End: 06-30-2023 Patient encounter procedure [facility] Work Phone: Start: 03-28-2023 End: 03-28-2023 ambulatory JEREMIE RILEY [facility] Start: 03-28-2023 End: 03-28-2023 Evaluation and management of inpatient Jeremie Riley MD Work Phone: [facility] Start: 03-28-2023 End: 03-28-2023 Subsequent hospital visit by physician Jeremie Riley MD Work Phone: [facility] Comment on above: Malignant neoplasm o f prostate (CMS/HCC) Start: 03-21-2023 End: 03-21-2023 Patient encounter procedure [facility] Start: 03-09-2023 End: 03-09-2023 ambulatory NEHAL MIEDEL [facility] Start: 03-09-2023 Encounter for other preprocedural examination JEREMIE RILEY [facility] Start: 02-17-2023 End: 02-17-2023 ambulatory [facility] Work Phone: Start: 02-17-2023 End: 02-17-2023 Patient encounter procedure [facility]Cat [facility], [facility] Work Phone: Start: 02-13-2023 End: 02-13-2023 ambulatory [facility] Work Phone: Start: 02-13-2023 End: 02-13-2023 Patient encounter procedure [facility], Specimen Work Phone: Start: 02-10-2023 End: 02-10-2023 ambulatory [facility] Work Phone: Start: 02-10-2023 End: 02-10-2023 Patient encounter procedure [facility] - [facility] Work Phone: Start: 01-18-2023 End: 01-18-2023 Patient encounter procedure [facility] Work Phone: Start: 05-24-2022 End: 05-24-[address] Renato Rider Work Phone: [facility] Work Phone: Start: 05-24-2022 End: 05-24-[address] Renato Rider Work Phone: [facility] Start: 04-29-2022 End: 04-29-[address] Renato Rider Work Phone: [facility] Start: 06-01-2021 Non-patient / Non-visit Dr. Blake Rider Work Phone: [facility] Start: 06-01-2021 End: 06-01-[address] Renato Rider Work Phone: [facility] Start: 05-17-2021 End: 05-17-[address] Renato Rider Work Phone: [facility] Start: 05-14-2021 End: 05-14-2021 Emergency department patient visit Dr. Renato Rider Work Phone: [facility]Emergency Department Start: 05-13-2021 End: 05-13-[address] Renato Rider Work Phone: [facility] Procedures Date Procedure Procedure Detail Performing Clinician Start: 03-21-2023 Positron emission tomography with computed tomography Start: 03-09-2023 Antibody screen JEREMIE RILEY Comment on above: Performed By: #### [id number] #### [facility] [address] [place] [address] Start: 02-17-2023 Computed tomography of abdomen and pelvis with contrast Start: 02-17-2023 Radionuclide whole b evan bone study Start: 02-10-2023 MRI of pelvis with contrast Start: 05-14-2021 Plain chest X-ray Dr. Nitin Rider Work Phone: Plan of Treatment Date Care Activity Detail Author Start: 03-09-2024 Hypertension/CHF/CAD Annual BMP Blood Test Hypertension/CHF/CAD Annual BMP Blood Test [facility] Start: 03-28-2023 End: 03-28-2023 PROSTATECTOMY ROBOT PROSTATECTOMY ROBOT Malignant neoplasm of prostate (CMS/HCC) 03/28/2023 10:19 AM EST [facility] Start: 03-09-2023 Adolescent depressio n screening assessment Depression Screening [facility] Start: 03-09-2023 Hepatitis C screening Hepatitis C Sc reening [facility] Start: 03-09-2023 HIV screening HIV Screening [facility] Start: 03-09-2023 Lipid panel Cholesterol Sc reening (Lipid Panel) [facility] Start: 03-09-2023 Social Influencers o f Health Screening Social Influencers of Health Screening [facility] Start: 11-11-2022 Influenza vaccination Influenza Vacc ine (#1) [facility] Start: 05-29-2017 DTaP,Tdap,and Td Vaccines (2 - Td or Tdap) DTaP,Tdap,and Td Vaccines (2 - Td or Tdap) [facility] Start: 1985 Zoster Vaccines (1 of 2) Zoster Vacc chanelle (1 of 2) [facility] Start: 1972 Pneumococcal Vaccine : Pediatrics (0 to 5 Years) and At-Risk Patients (6 to 64 Years) (1 - PCV) Pneumococcal Vaccine: Pediatrics (0 to 5 Years) and At-Risk Patients (6 to 64 Years) (1 - PCV) [facility] Start: 11-30-1971 COVID-19 Vaccine (#1) COVID-19 Vacci ne (#1) [facility] Start: 1966 Hepatitis B Vaccines (1 of 3 - 3-dose series) Hepatitis B Vaccines (1 of 3 - 3-dose series) [facility] Pathology study [facility] Work Phone: Comment on above: Release Upon [place] for 1 Occurrences starting 03/28/2023, 1 completed Patient Education ED Weakness (U ncertain Cause) [facility] Work Phone: Patient referral [facility] Work Phone: Payers Date Payer Category Payer Self-pay [id number] 2022 Unknown [id number] 2022 Unknown [employer] [id number] 2022-Present [address] [place] [address] [id number] 2016 Unknown [id number] 1966 Unknown [id number] 1966 Unknown [id number] Unknown [facility] [employer] [id number] Unknown [id number] Unknown [id number] Unknown [id number] Unknown [id number] Unknown [id number] Unknown [id number] Unknown [id number] Social History Date Type Detail Facility Start: 05-17-2021 End: 04-29-2022 Tobacco smoking status NHIS Unknown if ever smoked [facility] Start: 05-13-2016 None [facility] Start: 05-09-2016 Spouse/ Signif icant Other [facility] Start: 05-09-2016 Non-smoker [facility] Start: 1965 Sex Assigned At Male W [facility] Start: 03-09-2023 Tobacco smoking status NHIS Never smoked tobacco [facility] Start: 03-09-2023 Tobacco use and exposure Smokeless tobacco non-user [facility] Start: 03-28-2023 Alcohol intake Current drinke r of alcohol (finding) [facility] Start: 03-09-2023 Alcohol Comment occasional [facility] Start: 1965 Sex Assigned At Not on file [facility] Gender identity Not on file [facility] Mental Status Date Assessment Result Facility 05-14-2021 Cognitive function Voice/Name Tad [place] [facility] Work Phone: Clinical Notes 03-14-2023 to 03-28-2023 Marcy Rock RN - 03/28/2023 3:46 PM Franco Rock RN - 03/28/2023 3:46 PM Brendan Riley MD - 03/28/2023 10:40 AM Liu Hatfield RN - 03/28/2023 9:27 AM EST Note Date & Type Note Facility 03-28-2023 Nurse Note Patient tolerating naila crackers and water. Patient walked back and forth in SDU multiple times without issue. Discharge teaching done with patient's . All questions answered. Patient going home with newell catheter and leg bag. [facility] 03-28-2023 Procedure note Patient tolerating naila crackers and water. Patient walked back and forth in SDU multiple times without issue. Discharge teaching done with patient's . All questions answered. Patient going home with newell catheter and leg bag. ATTENDING PHYSICIAN: Jeremie Riley MD [employer] P[employer] OPERATOR: Rolly HERNÁNDEZ PREOPERATIVE DIAGNOSIS Prostate cancer. POSTOPERATIVE [...] the surgery and need for a bedside career services assistant, Rolly HERNÁNDEZ assisted for the entire surgery. Newell catheter edu and surgeon's discharge instructions completed in preop. Genereal anesthesia post-op care instructions completed in preop. All questions answered and pt verbalized understanding. Marielos/Dr. Riley's office notified of mixed isidro in urine. Office to follow up. documented in this encounter [facility] 03-28-2023 History of Presen t illness Narrative Adequate for pacu discharge documented in this encounter [facility] 03-28-2023 Surgery Surgical operation note ATTENDING PHYSICIAN: Jeremie Riley MD [employer]YNAM[employer] PACKING OPERATOR: Rolly HERNÁNDEZ PREOPERATIVE DIAGNOSIS Prostate cancer. POSTOPERATIVE [...] the surgery and need for a bedside career services assistant, Rolly HERNÁNDEZ assisted for the entire surgery. [facility] 03-28-2023 Attending History and physical note [...] note were not included. Mundo Dunn MD [facility] Hospitalists Medical Consultation Patient Name:Grant Thurston MR #:[id number] :1965 Admit Date: Physicians: Nehal Moore MD (Family); No ref. provider found (Referring) Reason for Consultation: Pre-Operative medical risk stratification and testing at the request of Dr. Jeremie Riley scheduled robotic assisted laparoscopic prostatectomy with lymph node dissection on March 28, 2023 Perpetual Assessment: Grant Thurston is a 57 y.o. male presented to [facility] for Pre operative evaluation. ASSESSMENT AND PLAN [...] 60-89 ml/min) Kidney stones 2016 Prostate cancer ([facility]/HCC) 02/2023 Seasonal allergies Past Surgical History: Procedure [...] [x] Outside Records [] Family Time Spent: [facility] 03-28-2023 History and physi guillaume note History [...] note were not included. Mundo Dunn MD [facility] Hospitalists Medical Consultation Patient Name:Grant Thurston MR #:[id number] :1965 Admit Date: Physicians: Nehal Moore MD (Family); No ref. provider found (Referring) Reason for Consultation: Pre-Operative medical risk stratification and testing at the request of Dr. Jeremie Riley scheduled robotic assisted laparoscopic prostatectomy with lymph node dissection on March 28, 2023 Perpetual Assessment: Grant Thurston is a 57 y.o. male presented to [facility] clinic for Pre operative evaluation. [...] 60-89 ml/min) Kidney stones 2016 Prostate cancer ([facility]/HCC) 02/2023 Seasonal allergies Past Surgical History: Procedure [...] Family Time Spent: documented in this encounter [facility] 03-28-2023 Nurse Note Newell catheter edu and surgeon's discharge instructions completed in preop. Genereal anesthesia post-op care instructions completed in preop. All questions answered and pt verbalized understanding. [facility] 03-14-2023 Nurse Note Marielos/Dr. Riley's office notified of mixed isidro in urine. Office to follow up. [facility] Evaluation note Diagnosis Onset Date Elevated blood pressure read ing without diagnosis of hypertension acute Hypertriglyceridemia acute [facility] Work Phone: Evaluation note* Diagnosis Onset Date Resolution Status Elevated blood pressure read ing without diagnosis of hypertension acute Hyperlipidemia chronic [facility] Work Phone: Evaluation noteNo assessment information available [facility] Work Phone: Evaluation note* Diagnosis Malignant neoplasm of prostate (CMS/HCC) Malignant neoplasm of prostate Prostate CA (CMS/HCC) Malignant neoplasm of prostate documented in this encounter [facility] Discharge instructions* Attachments The following attachments cannot be sent through Care Everywhere. * Radical Prostatectomy: Laparoscopic: Post-op (Congolese) * General Anesthesia (Congolese) * Indwelling Urinary Catheter Care: General Info (Congolese) [facility] Chief Complaint and Reason for Visit [...] Yes May 14, 2021 6:45pm Power of Photographic Restorer Yes May 14 6:45pm Advance Directive Response Recorded Date/ Time Advance Directives Yes March 30, 2016 10:04pm Living Will Yes May 14, 2021 5:45pm Power of Photographic Restorer Yes May 14 5:45pm Summary Purpose Additional [...] Care Provider, Referring Provider Active Ketty Montaño DIGITAL COMMUNICATIONS MANAGER, DIGITAL COMMUNICATIONS MANAGER-C Attending Provider Active Team Status: Inactive Member [...] MD Attending Provider, Referr ing Provider Active Business Communications Instructor Relationship Specialty Start Date End Date Nehal Moore MD [address] [place] [id number] PCP - General Family Medicine 03/09/23 Team Status: Inactive Member Role Status Dates ABHILASH CHAO Attending Provider, Referring Provider A ctive Dr. Nehal Moore MD Primary Care Provider Active Dr. Garrett Major MD Other Provider Active Reason for Visit (unrecogniz ed section and content) Specialty Diagnoses / Procedures Referred By Vj rosas Referred To Contact Diagnoses Malignant neoplasm of prostate (CMS/HCC) Procedures [place] LAP SURG PROSTATECTOMY RETROPUBIC RADICAL INCL NRV SPARING/ROBOTIC ASST [place] LAPAROSCOPY SURG BILATERAL TOTAL PELVIC LYMPHADENECTOMY ROBOTIC ASSISTED LAPAROSCOPIC PROSTATECTOMY WITH PELVIC LYMPH NODE DISSECTION Jeremie Riley MD [address] [place] [address] [facility] [address] [place] [address] Referral ID Status Reason Start Date Expiration Date Visits Re quested Visits Authorized [id number] 1 1 Scheduled Active and Recently Administ [...] - Provider: MITCHEL Mejia)1020 (Paused - Provider: MTICHEL Mejia - Comment: Switch to gravity)1021 (Restarted [...] section and content) DATE CREATED AUTHOR 06/07/2023 [facility] DATE CREATED AUTHOR AUTHOR'S ORGANIZ ATION 01/21/2025 [facility] FOR RECORDS PERTAINING TO PATIENTS WHO [...] BE BASED ON THE PRIMARY CLINICAL RECORDS. [facility]. provides no warranty or guarantee of the accuracy or completeness of information in this document.
[2025-01-26 13:36] LABS: Differential Indicated SCAN CRITERIA MET
[2025-01-26 14:02] LABS: AST(SGOT) 17 U/L (<=37); Alanine Aminotransfer ALT/SGPT 52 U/L (<=46); Albumin, Serum 4.3 g/dL (3.5-5.0); Alkaline Phosphatase 70 U/L (40-129); Anion Gap 11 (5-15); BUN 18 mg/dL (4-19); BUN/Creat Ratio 14.0 RATIO (10-20); Calcium,Total 9.8 mg/dL (7.6-11.0); Carbon Dioxide 23.7 mmol/L (21.0-32.0); Chloride 103 mmol/L (98-108); Estimated Creatinine Clearance 79.70 ml/min (50-250); Globulin 3.1 g/dL (2.2-4.2); Glucose 117 mg/dL (70-99); Potassium 4.4 mmol/L (3.3-5.1)
[2025-01-26 15:46] VITALS: BP 147/91; PULSE 60; RESP 16; TEMP 36.8; O2SAT 95
[2025-01-28 08:09] LABS: CRP, High Sensitivity 10.78 mg/L (0.00-3.00)
[2025-01-28 16:09] LABS: Lyme Scn Total Ab w/Rflx Negative (Negative)
== END 2025-01-26 16:30 | disposition home or self-care (01) ==
PROVIDERS: Emergency Provider Emergency Medicine; PCP Family Medicine; Visit Provider Emergency Medicine
DX: M79.641 Pain in right hand (principal); M79.642 Pain in left hand; M79.89 Other specified soft tissue disorders; D72.829 Elevated white blood cell count, unspecified
CPT/HCPCS: 80053; 85025; 85652; 86141; 86618; 96374; 96376; 99283; A4216

== ENCOUNTER → 2025-01-28 | Outpatient (CLI) | payer OTHER, SELFPAY ==
--- OUTSIDE RECORDS SUMMARY | 2025-01-28 17:01 | XMS RPT_ITS | CCD ---
Author Organization [facility] Care Team Providers Care Resource Engineer Name Role Phone Dr. Renato Rider Primary Care Provider Dr. Renato Rider Referring Provider [phone] Cb Lucero Attending Provider [phone] Dr. Jan Lora Attending Provider Dr. Renato Rider Primary Care Provider [phone] Dr. Renato Rider Referring Provider Danyel HAIRSTON, JEFERSON Hdez Attending Provider Nehal Moore MD Primary Care Provider JEREMIE RILEY Attending Unavailable JEREMIE RILEY Admitting Unavailable LAEDEL, NEHAL Primary Care Unavailable MIEDEL, NEHAL Primary [...] Translations: [PENICILLINS] Allergy to substance 05-17-2021 Anaphylaxis [facility] (7 sources) Eslkizm-Zqc-Iop Reductase Inhibitor; Translations: [Vexorsv-Ooh-Oaj Reductase Inhibitor] Propensity to adverse reactions 05-17-2021 myalgias [facility] (2 sources) Non-steroidal anti-inflammator y agent; Translations: [NSAIDS (NON-STEROIDAL ANTI-INFLAMMATOR Y DRUG)] Propensity to adverse reactions 03-09-2023 [facility] Medications Current Medications Medication Drug Class(es) Dates [...] 3:23pm 2 TABLETS AT 6,8, AND 10 [place] 5-Ays-Jlr-Fish Oil (Fish Oil 1,600 Mg/5 Ml Liquid) 1,600 MG/5 ML Liquid (6 sources) Start: 05-08-2016 End: 05-11-2016 take 1600 mg by mouth once daily [place] 4-Ciq-Rcj-Fish Oil (Fish Oil 1,600 Mg/5 Ml Liquid) 1,600 MG/5 ML Liquid Discontinued 1600 MG PO DAILY May 08, 2016 12:53pm May 11, 2016 3:27pm Start: 05-08-2016 End: 05-11-2016 take 1600 mg by mouth once daily [place] 1-Pct-Oxc-Fish Oil (Fish Oil 1,600 Mg/5 Ml Liquid) 1,600 MG/5 ML Liquid Discontinued 1600 MG PO DAILY May 08, 2016 12:00am May 11, 2016 2:27pm Start: 05-08-2016 End: 05-11-2016 take 1600 mg by mouth once daily [place] 4-Buk-Eqv-Fish Oil (Fish Oil 1,600 Mg/5 Ml Liquid) 1,600 MG/5 ML Liquid Discontinued 1600 MG PO DAILY May 08, 2016 1:00am May 11, 2016 3:27pm [place]-3 Fatty Acids-Fish Oil (Fish Oil 1,000 Mg Capsule) 1 EACH capsule (6 sources) Start: 12-16-2016 End: 01-30-2017 [place]-3 Fatty Acids-Fish Oil (Fish Oil 1,000 Mg Capsule) 1 EACH capsule Discontinued 1 EACH PO DAILY December 16, 2016 1:18pm January 30, 2017 1:42pm Start: 12-16-2016 End: 01-30-2017 [place]-3 Fatty Acids-Fish Oil (Fish Oil 1,000 Mg Capsule) 1 EACH capsule Discontinued 1 EACH PO DAILY December 15, 2016 11:00pm January 30, 2017 12:42pm Start: 12-16-2016 End: 01-30-2017 [place]-3 Fatty Acids-Fish Oil (Fish Oil 1,000 Mg [...] infection (6 sources) Viral gastroenteritis due to Byron-like agent; Translations: [Acute gastroenteropathy due to Byron agent] 05-17-2021 Episodic Malaise and fatigue (6 [...] Acidon 01-21-2025 URIC 7.5 mg/dL High 3.5-7.2 [facility] Comment on above: Result Comment: The drugs N-Acetylcysteine and Metamizole may falsely depress this assay. Performed By: #### L 501.1400 #### [facility] [address] [place], [address] CBC W/Diff, Automatedon 01-11 PLT EST ADEQUATE Normal ADEQ [facility] Comment on above: Performed By: #### L 300.8000, L501.6710, L500.4050, L101.9900, L100.0100 ####[facility] [address] [place], [address] SMEAR COMMENT SCANNED Normal [facility] Comment on above: Performed By: #### L 300.8000, L501.6710, L500.4050, L101.9900, L100.0100 ####[facility] [address] [place], [address] CRPon 01-20-2025 C-REACTIVE PROT 17.90 mg/L High 0.0-3.0 [facility] Comment on above: Performed By: #### L 300.8000, L501.6710, L500.4050, L101.9900, L100.0100 #### [facility] [address] [place], [address] Comprehensive Metabolic Prof ilon 01-20-2025 Albumin [Mass/Vol] 4.4 g/dL Normal 3.5-5.0 [facility] Comment on above: Performed By: #### L 300.8000, L501.6710, L500.4050, L101.9900, L100.0100 #### [facility] [address] [place], [address] Albumin/Globulin [Mass ratio] 1.5 {ratio} Normal 0.9-2.4 [facility] Comment on above: Performed By: #### L 300.8000, L501.6710, L500.4050, L101.9900, L100.0100 #### [facility] [address] [place], [address] ALK PHOS 62 U/L Normal 40-129 [facility] Comment on above: Performed By: #### L 300.8000, L501.6710, L500.4050, L101.9900, L100.0100 #### [facility] [address] [place], [address] ALT [Catalytic activity/Vol] 121 U/L High <=46 [facility] Comment on above: Performed By: #### L 300.8000, L501.6710, L500.4050, L101.9900, L100.0100 #### [facility] [address] [place], [address] AST [Catalytic activity/Vol] 38 U/L Normal <=37 [facility] Comment on above: Performed By: #### L 300.8000, L501.6710, L500.4050, L101.9900, L100.0100 #### [facility] [address] [place], [address] Bilirubin [Mass/Vol] 0.54 mg/dL Normal 0.00-1.30 [facility] Comment on above: Performed By: #### L 300.8000, L501.6710, L500.4050, L101.9900, L100.0100 #### [facility] [address] [place], [address] BUN/CRE 13.3 RATIO Normal 10-20 [facility] Comment on above: Performed By: #### L 300.8000, L501.6710, L500.4050, L101.9900, L100.0100 #### [facility] [address] [place], [address] Calcium [Mass/Vol] 9.5 mg/dL Normal 7.6-11.0 [facility] Comment on above: Performed By: #### L 300.8000, L501.6710, L500.4050, L101.9900, L100.0100 #### [facility] [address] [place], [address] Chloride [Moles/Vol] 101 mmol/L Normal 98-108 [facility] Comment on above: Performed By: #### L 300.8000, L501.6710, L500.4050, L101.9900, L100.0100 #### [facility] [address] [place], [address] CO2 [Moles/Vol] 26.2 mmol/L Normal 21.0-32.0 [facility] Comment on above: Performed By: #### L 300.8000, L501.6710, L500.4050, L101.9900, L100.0100 #### [facility] [address] [place], [address] Creatinine [Mass/Vol] 1.53 mg/dL High 0.70-1.20 [facility] Comment on above: Performed By: #### L 300.8000, L501.6710, L500.4050, L101.9900, L100.0100 #### [facility] [address] [place], [address] GAP 12 Normal 5-15 [facility] Comment on above: Performed By: #### L 300.8000, L501.6710, L500.4050, L101.9900, L100.0100 #### [facility] [address] [place], [address] GFR/1.73 sq M.predicted among non-blacks MDRD (S/P/Bld) [Vol rate/Area] 52 mL/min/{1.73_m2} Low >60 [facility] Comment on above: Result Comment: mL/m in/1.73m2 CKD-EPI Creatinine Equation (2020) Performed By: #### L 300.8000, L501.6710, L500.4050, L101.9900, L100.0100 #### [facility] [address] [place], [address] Globulin (S) [Mass/Vol] 2.9 g/dL Normal 2.2-4.2 [facility] Comment on above: Performed By: #### L 300.8000, L501.6710, L500.4050, L101.9900, L100.0100 #### [facility] [address] [place], [address] Glucose [Mass/Vol] 101 mg/dL High 70-99 [facility] Comment on above: Performed By: #### L 300.8000, L501.6710, L500.4050, L101.9900, L100.0100 #### [facility] [address] [place], [address] Potassium [Moles/Vol] 4.2 mmol/L Normal 3.3-5.1 [facility] Comment on above: Performed By: #### L 300.8000, L501.6710, L500.4050, L101.9900, L100.0100 #### [facility] [address] [place], [address] Sodium [Moles/Vol] 139 mmol/L Normal 133-145 [facility] Comment on above: Performed By: #### L 300.8000, L501.6710, L500.4050, L101.9900, L100.0100 #### [facility] [address] [place], [address] T PROT 7.3 g/dL Normal 5.9-8.4 [facility] Comment on above: Performed By: #### L 300.8000, L501.6710, L500.4050, L101.9900, L100.0100 #### [facility] [address] [place], [address] Urea nitrogen [Mass/Vol] 20 mg/dL High 4-19 [facility] Comment on above: Performed By: #### L 300.8000, L501.6710, L500.4050, L101.9900, L100.0100 #### [facility] [address] [place], [address] D-Dimer Quantitative (DVT/PE )on 01-20-2025 D-DIMER QUANT 0.42 FEU/ug/m Normal 0.27-0.49 [facility] Comment on above: Result Comment: NORM AL D-Dimer level (<0.50) indicates no DVT or PE. Performed By: #### L 300.8000, L501.6710, L500.4050, L101.9900, L100.0100 ####[facility] [address] [place], [address] Erythrocyte Sed Rateon 01-20 SED RATE 24 mm/hr High 0-20 [facility] Comment on above: Performed By: #### L 300.8000, L501.6710, L500.4050, L101.9900, L100.0100 ####[facility] [address] [place], [address] PSA,Total- Diagnosticon 01-11 PSA, DIAGNOSTIC 0.07 ng/mL Normal 0.00-4.00 [facility] Comment on above: Result Comment: This test was performed using the [employer] tPSA method. Measured values of a patient??sample can vary depending on the testing procedure used. PSA values determined on patient samples by different testing procedures cannot be used interchangeably. If there is a change in PSA assays while monitoring therapy, sequential testing should be performed to confirm baseline values. Performed By: #### L 501.9940 ####[facility] [address] [place], [address] Emergency Department Summary on 01-19-2025 Emergency Department Summary [facility] Medical Records Department [address] [place] [address] Emergency Department Summary 01/19/25 MR#: [id number] Acct: [id number] Name: GRANT THURSTON Rep #: [id number] : 1965 59 From: Eric Turner MD [...] clots but he has never had any. [facility] Medical History Erectile dysfunction after radical prostatectomy [...] Penicillins Allergy Severe Anaphylaxis Verified 01/19/25 07:49 Bpoezmx-Icv-Kjw Reductase AdvReac myalgias Verified 01/19/25 07:49 Inhibitor (Gytbuaa-SYS-KyZ Reductase Inhibitor) Family History Grandfather Blood clot [...] lower leg. (more content not included)... Normal [facility] PSA,Total- Diagnosticon 09-10 PSA, DIAGNOSTIC 0.05 ng/mL Normal 0.00-4.00 [facility] Comment on above: Result Comment: This test [...] values. Performed By: #### L 501.9940 #### [facility] [address] [place], [address] Radiation Oncology Visiton 0 07-02-2024 Radiation Oncology Visit [facility] [address] [place] [address] OFFICE VISIT Date of Service: 07/02/24 0900 MR#: [id number] Acct: [id number] Name: GRANT THURSTON Rep #: [id number] : 1965 From: Martir Whittington DO Age/Sex: 58/M Location: [facility] Status: Signed Intake Vital Signs 01/19/24 08:24 [...] Penicillins Allergy (Severe, Verified 07/02/24 09:02) Anaphylaxis Uxpkqrf-ADS-MoL Reductase Inhibitor Adverse Reaction (Verified 07/02/24 09:02) [...] Penicillins Allergy Severe Anaphylaxis Verified 07/02/24 09:02 Jumtmqn-JIB-VdW Reductase AdvReac myalgias Verified 07/02/24 09:02 Inhibitor [...] are noted. 03/28/2023: completed RP.??? 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 Margins are negative.??? 5 lymph [...] having any (more content not included)... Normal [facility] PSA,Total- Diagnosticon 04- PSA, DIAGNOSTIC < 0.02 Normal 0.00-4.00 [facility] Comment on above: Result Comment: This test [...] values. Performed By: #### L 501.9940 #### [facility] [address] [place], [address] PSA,Total- Diagnosticon 03-14 PSA, DIAGNOSTIC < 0.01 Normal 0.0-4.0 [facility] Comment on above: Result Comment: This test was performed using the TPSA assay method for the [employer] chemistry system. Values obtained with different assay methods cannot be used interchangably. When changing PSA assays in the course of monitoring a patient, additional sequential testing should be carried out to confirm baseline values. Performed By: #### L 501.9940 #### [facility] [address] [place], [place], [address] Pelvis W/WO Contraston 03-26 Pelvis W/WO Contrast [facility] Services [address] [place] [address] Pelvis W/WO Contrast MR#: [id number] Acct: [id number] Name: GRANT THURSTON Rep #: [id number] : 1965 M 58 From: Tonny guerra MD PCP: Dr. Nehal Moore MD Status: [facility] Study: Pelvis W/WO Contrast Date of Exam: 03/26/24 Exam# [id number] Ordering Dr: Martir Whittington DO [id number] EXAMINATION: MR Prostate WO/W Contrast COMPARISON: 02/10/2023 [...] Nehal Moore MD; Dr. Martir Whittington DO Pharmacy Manager: Signed Normal [facility] PET/CT Tumor Base -Thigh Sub son 02-27-2024 PET/CT Tumor Base -Thigh Subs [facility] Services [address] [place] [address] PET/CT Tumor Base -Thigh Subs MR#: [id number] Acct: [id number] Name: GRANT THURSTON Rep #: [id number] : 1965 M 58 From: Grant Villa PCP: Dr. Nehal Moore MD Status: REG RCR Study: PET/CT Tumor Base -Thigh Subs Date of Exam: Exam# [id number] Ordering Dr: Martir Whittington DO [id number] EXAMINATION: F [address] [...] this report are calculated using the exclusive [employer] Technology, ([place].S. Patent No. [id number] [id number] [phone] [place] patent [phone] ). Standardization and correction of the FDG SUV metric exclusively available with [employer] intellectual property, allow for vendor non-specific objective quantitative sequential FDG PET-CT comparison and otherwise unobtainable optimization of the sensitivity and specificity of the examination. [email or web address] Electronically Signed: Grant Camara DO at 9:20 EST , CC: Dr. Nehal Moore MD; Dr. Martir Whittington DO Pharmacy Manager: Signed Normal [facility] CBC W/Diff, Automatedon 12 Absolute Lymph 1.98 X10 3/uL Normal 0.83-4.51 [facility] Comment on above: Performed By: #### L 500.4050, L501.9520, L100.0100, L500.4100, L501.1400, L501.9985 ####[facility] [address] [place], [address] Absolute Neut 5.4 X10 3/uL Normal 2.0-7.7 [facility] Comment on above: Performed By: #### L 500.4050, L501.9520, L100.0100, L500.4100, L501.1400, L501.9985 ####[facility] [address] [place], [address] Basophils/100 WBC (Bld) 0.8 % Normal 0-1 [facility] Comment on above: Performed By: #### L 500.4050, L501.9520, L100.0100, L500.4100, L501.1400, L501.9985 ####[facility] [address] [place], [address] Eosinophils/100 WBC (Bld) 3.4 % Normal 0-5 [facility] Comment on above: Performed By: #### L 500.4050, L501.9520, L100.0100, L500.4100, L501.1400, L501.9985 ####[facility] [address] [place], [address] Erythrocyte distribution width (RBC) [Ratio] 13.7 % Normal 11.6-14.6 [facility] Comment on above: Performed By: #### L 500.4050, L501.9520, L100.0100, L500.4100, L501.1400, L501.9985 ####[facility] [address] [place], [address] Hematocrit (Bld) [Volume fraction] 50.1 % Normal 40-54 [facility] Comment on above: Performed By: #### L 500.4050, L501.9520, L100.0100, L500.4100, L501.1400, L501.9985 ####[facility] [address] [place], [address] Hemoglobin (Bld) [Mass/Vol] 17.0 g/dL High 13.0-16.5 [facility] Comment on above: Performed By: #### L 500.4050, L501.9520, L100.0100, L500.4100, L501.1400, L501.9985 ####[facility] [address] [place], [address] IG% 0.500 Normal 0.0-0.9 [facility] Comment on above: Result Comment: IG% - Immature Granulocytes (promyelocytes, myelocytes and metamyelocytes) > 1% indicates that a LEFT SHIFT is Present. Performed By: #### L 500.4050, L501.9520, L100.0100, L500.4100, L501.1400, L501.9985 ####[facility] [address] [place], [address] Lymphocytes/100 WBC (Bld) 22.8 % Normal 19-41 [facility] Comment on above: Performed By: #### L 500.4050, L501.9520, L100.0100, L500.4100, L501.1400, L501.9985 ####[facility] [address] [place], [address] MCH (RBC) [Entitic mass] 29.7 pg Normal 27.0-32.0 [facility] Comment on above: Performed By: #### L 500.4050, L501.9520, L100.0100, L500.4100, L501.1400, L501.9985 ####[facility] [address] [place], [address] MCHC (RBC) [Mass/Vol] 33.9 g/dL Normal 32-36 [facility] Comment on above: Performed By: #### L 500.4050, L501.9520, L100.0100, L500.4100, L501.1400, L501.9985 ####[facility] [address] [place], [address] MCV (RBC) [Entitic vol] 87.6 fL Normal 80-94 [facility] Comment on above: Performed By: #### L 500.4050, L501.9520, L100.0100, L500.4100, L501.1400, L501.9985 ####[facility] [address] [place], [address] Monocytes/100 WBC (Bld) 10.5 % High 0-10 [facility] Comment on above: Performed By: #### L 500.4050, L501.9520, L100.0100, L500.4100, L501.1400, L501.9985 ####[facility] [address] [place], [address] Neutrophils/100 WBC (Bld) 62.0 % Normal 47-70 [facility] Comment on above: Performed By: #### L 500.4050, L501.9520, L100.0100, L500.4100, L501.1400, L501.9985 ####[facility] [address] [place], [address] Nucleated RBC (Bld) [#/Vol] 0 10*3/uL Normal 0-5 [facility] Comment on above: Performed By: #### L 500.4050, L501.9520, L100.0100, L500.4100, L501.1400, L501.9985 ####[facility] [address] [place], [address] Platelet mean volume (Bld) [Entitic vol] 9.8 fL Normal 6.2-12.0 [facility] Comment on above: Performed By: #### L 500.4050, L501.9520, L100.0100, L500.4100, L501.1400, L501.9985 ####[facility] [address] [place], [address] Platelets (Bld) [#/Vol] 257 10*3/uL Normal 150-450 [facility] Comment on above: Performed By: #### L 500.4050, L501.9520, L100.0100, L500.4100, L501.1400, L501.9985 ####[facility] [address] [place], [address] RBC (Bld) [#/Vol] 5.72 10*6/uL Normal 4.6-6.2 [facility] Comment on above: Performed By: #### L 500.4050, L501.9520, L100.0100, L500.4100, L501.1400, L501.9985 ####[facility] [address] [place], [address] RDW SD 43.7 fl Normal 35.1-43.9 [facility] Comment on above: Performed By: #### L 500.4050, L501.9520, L100.0100, L500.4100, L501.1400, L501.9985 ####[facility] [address] [place], [address] WBC (Bld) [#/Vol] 8.7 10*3/uL Normal 4.4-11.0 [facility] Comment on above: Performed By: #### L 500.4050, L501.9520, L100.0100, L500.4100, L501.1400, L501.9985 ####[facility] [address] [place], [address] Comprehensive Metabolic Prof ilon 02-21-2024 Albumin [Mass/Vol] 3.9 g/dL Normal 3.2-5.0 [facility] Comment on above: Performed By: #### L 500.4050, L501.9520, L100.0100, L500.4100, L501.1400, L501.9985 ####[facility] [address] [place], [address] Albumin/Globulin [Mass ratio] 1.1 {ratio} Normal 0.9-2.4 [facility] Comment on above: Performed By: #### L 500.4050, L501.9520, L100.0100, L500.4100, L501.1400, L501.9985 ####[facility] [address] [place], [address] ALK P 61 U/L Normal 45-117 [facility] Comment on above: Performed By: #### L 500.4050, L501.9520, L100.0100, L500.4100, L501.1400, L501.9985 ####[facility] [address] [place], [address] ALT [Catalytic activity/Vol] 74 U/L High 16-61 [facility] Comment on above: Performed By: #### L 500.4050, L501.9520, L100.0100, L500.4100, L501.1400, L501.9985 ####[facility] [address] [place], [address] AST [Catalytic activity/Vol] 25 U/L Normal 15-37 [facility] Comment on above: Performed By: #### L 500.4050, L501.9520, L100.0100, L500.4100, L501.1400, L501.9985 ####[facility] [address] [place], [address] Bilirubin [Mass/Vol] 0.70 mg/dL Normal 0.20-1.00 [facility] Comment on above: Result Comment: For patients on eltrombopag therapy, use of Dimension [place] TBIL is not recommended. Performed By: #### L 500.4050, L501.9520, L100.0100, L500.4100, L501.1400, L501.9985 ####[facility] [address] [place], [address] BUN/CRE 9.1 RATIO Low 10-20 [facility] Comment on above: Performed By: #### L 500.4050, L501.9520, L100.0100, L500.4100, L501.1400, L501.9985 ####[facility] [address] [place], [address] CA,Total 9.3 mg/dL Normal 8.5-10.1 [facility] Comment on above: Performed By: #### L 500.4050, L501.9520, L100.0100, L500.4100, L501.1400, L501.9985 ####[facility] [address] [place], [address] Chloride [Moles/Vol] 105 mmol/L Normal 98-107 [facility] Comment on above: Performed By: #### L 500.4050, L501.9520, L100.0100, L500.4100, L501.1400, L501.9985 ####[facility] [address] [place], [address] CO2 [Moles/Vol] 28.0 mmol/L Normal 21.0-32.0 [facility] Comment on above: Performed By: #### L 500.4050, L501.9520, L100.0100, L500.4100, L501.1400, L501.9985 ####[facility] [address] [place], [address] Creatinine [Mass/Vol] 1.32 mg/dL High 0.70-1.30 [facility] Comment on above: Result Comment: The validity of the calculated GFR GFRAA in patients over 70 years has not been determined. Clinical correlation is essential. Performed By: #### L 500.4050, L501.9520, L100.0100, L500.4100, L501.1400, L501.9985 ####[facility] [address] [place], [address] EST GFR - AA 72 mL/min Normal >60 [facility] Comment on above: Result Comment: Afri can Austrian GFR Calc Performed By: #### L 500.4050, L501.9520, L100.0100, L500.4100, L501.1400, L501.9985 ####[facility] [address] [place], [address] GAP 6 Normal 5-15 [facility] Comment on above: Performed By: #### L 500.4050, L501.9520, L100.0100, L500.4100, L501.1400, L501.9985 ####[facility] [address] [place], [address] GFR/1.73 sq M.predicted among non-blacks MDRD (S/P/Bld) [Vol rate/Area] 59 mL/min/{1.73_m2} Low >60 [facility] Comment on above: Result Comment: Non- GFR Calc Performed By: #### L 500.4050, L501.9520, L100.0100, L500.4100, L501.1400, L501.9985 ####[facility] [address] [place], [address] Globulin (S) [Mass/Vol] 3.4 g/dL Normal 2.2-4.2 [facility] Comment on above: Performed By: #### L 500.4050, L501.9520, L100.0100, L500.4100, L501.1400, L501.9985 ####[facility] [address] [place], [address] Glucose [Mass/Vol] 113 mg/dL High 74-106 [facility] Comment on above: Result Comment: Fast ing Glucose result from 100 to 125 mg/dL suggests IMPAIRED HOMEOSTASIS per A.D.A. criteria. Performed By: #### L 500.4050, L501.9520, L100.0100, L500.4100, L501.1400, L501.9985 ####[facility] [address] [place], [address] Potassium [Moles/Vol] 4.4 mmol/L Normal 3.5-5.1 [facility] Comment on above: Performed By: #### L 500.4050, L501.9520, L100.0100, L500.4100, L501.1400, L501.9985 ####[facility] [address] [place], [address] Sodium [Moles/Vol] 138 mmol/L Normal 136-145 [facility] Comment on above: Performed By: #### L 500.4050, L501.9520, L100.0100, L500.4100, L501.1400, L501.9985 ####[facility] [address] [place], [address] T PROT 7.3 g/dL Normal 6.4-8.2 [facility] Comment on above: Performed By: #### L 500.4050, L501.9520, L100.0100, L500.4100, L501.1400, L501.9985 ####[facility] [address] [place], [address] Urea nitrogen [Mass/Vol] 12 mg/dL Normal 7-18 [facility] Comment on above: Performed By: #### L 500.4050, L501.9520, L100.0100, L500.4100, L501.1400, L501.9985 ####[facility] [address] [place], [address] Hemoglobin A1con 02-21-2024 HbA1c (Bld) [Mass fraction] 5.7 % High 3.8-5.6 [facility] Comment on above: Result Comment: Norm al < 5.7 % Prediabetic 5.7 - 6.4 % Diabetic >or= 6.5 % Please note range changes. Performed By: #### L 500.4050, L501.9520, L100.0100, L500.4100, L501.1400, L501.9985 ####[facility] [address] [place], [address] Lipid Profileon 02-21-2024 Cholesterol [Mass/Vol] 281 mg/dL High 200 [facility] Comment on above: Result Comment: <200 mg/dL Desirable 200-240 mg/dL Borderline >240 mg/dL High Risk Performed By: #### L 500.4050, L501.9520, L100.0100, L500.4100, L501.1400, L501.9985 ####[facility] [address] [place], [address] Cholesterol in HDL [Mass/Vol] 44 mg/dL Normal [facility] Comment on above: Result Comment: The drugs N-Acetylcysteine and Metamizole may falsely depress this assay. Reference Range HDL <40 mg/dL Low HDL Cholesterol HDL >or= 60 mg/dL High HDL Cholesterol Performed By: #### L 500.4050, L501.9520, L100.0100, L500.4100, L501.1400, L501.9985 ####[facility] [address] [place], [address] Cholesterol in LDL [Mass/Vol] 185 mg/dL High 0-130 [facility] Comment on above: Performed By: #### L 500.4050, L501.9520, L100.0100, L500.4100, L501.1400, L501.9985 ####[facility] [address] [place], [address] Cholesterol in VLDL [Mass/Vol] 52 mg/dL High 5-40 [facility] Comment on above: Performed By: #### L 500.4050, L501.9520, L100.0100, L500.4100, L501.1400, L501.9985 ####[facility] [address] [place], [address] Triglyceride [Mass/Vol] 260 mg/dL High [facility] Comment on above: Result Comment: The drugs N-Acetylcysteine and Metamizole may falsely depress this assay. Serum Triglycerides Reference Interval Normal <150 mg/dL Borderline high 150 - 199 mg/dL High 200 - 499 mg/dL Very High > or = 500 mg/dL Performed By: #### L 500.4050, L501.9520, L100.0100, L500.4100, L501.1400, L501.9985 ####[facility] [address] [place], [address] Thyroid Stim Hormone (TSH)on 02-21-2024 TSH 2.290 uIU/mL Normal 0.358-3.740 [facility] Comment on above: Performed By: #### L 500.4050, L501.9520, L100.0100, L500.4100, L501.1400, L501.9985 ####[facility] [address] [place], [address] Uric Acidon 02-21-2024 URIC 6.9 mg/dL Normal 3.5-7.2 [facility] Comment on above: Result Comment: The drugs N-Acetylcysteine and Metamizole may falsely depress this assay. Performed By: #### L 500.4050, L501.9520, L100.0100, L500.4100, L501.1400, L501.9985 ####[facility] [address] [place], [address] Basophil percentageon 2023 Basophil percentage < 0.01 ng/mL 0.0-4.0 [facility] Comment on above: This test was perfor med using the TPSA assay method for the[employer] chemistry system. Values obtained with differentassay methods cannot be used interchangably.When changing PSA assays in the course of monitoring apatient, additional sequential testing should be carriedout to confirm baseline values. Pathology studyon 03-28-2023 Scan Result See Scanned Result Normal [facility] Comment on above: Performed By: #### 1 1526-1 #### [facility] [address] [place] [address] Bacteria Ur Culton 3 Bacteria identified Cx Nom (U) Culture, Urine Status = F Mixed isidro, no uropathogens present. Suggest repeat specimen, if clinically indicated. Normal [facility] Comment on above: Performed By: #### 6 30-4 #### [facility] [address] [place] [address] Basic metabolic 2000 panelon 03-09-2023 Anion gap [Moles/Vol] 6 mmol/L Normal 6-18 [facility] Comment on above: Performed By: #### 2 4321-2 #### [facility] [address] [place] [address] Calcium [Mass/Vol] 9.5 mg/dL Normal 8.9-10.3 [facility] Comment on above: Performed By: #### 2 4321-2 #### [facility] [address] [place] [address] Chloride [Moles/Vol] 105 mmol/L Normal 98-107 [facility] Comment on above: Performed By: #### 2 4321-2 #### [facility] [address] [place] [address] CO2 [Moles/Vol] 26 mmol/L Normal 22-32 [facility] Comment on above: Performed By: #### 2 4321-2 #### [facility] [address] [place] [address] Creatinine [Mass/Vol] 1.14 mg/dL Normal 0.60-1.30 [facility] Comment on above: Performed By: #### 2 4321-2 #### [facility] [address] [place] [address] GFR/1.73 sq M.predicted among non-blacks MDRD (S/P/Bld) [Vol rate/Area] 75 mL/min/{1.73_m2} Normal >=60 [facility] Comment on above: Result Comment: Calc ulation based on the?Chronic Kidney Disease Epidemiology Collaboration (CKD-EPI) equation refit?without adjustment for race. Performed By: #### 2 4321-2 #### [facility] [address] [place] [address] Glucose [Mass/Vol] 132 mg/dL High 70-99 [facility] Comment on above: Performed By: #### 2 4321-2 #### [facility] [address] [place] [address] Potassium [Moles/Vol] 3.8 mmol/L Normal 3.6-5.1 [facility] Comment on above: Performed By: #### 2 4321-2 #### [facility] [address] [place] [address] Sodium [Moles/Vol] 137 mmol/L Normal 136-145 [facility] Comment on above: Performed By: #### 2 4321-2 #### [facility] [address] [place] [address] Urea nitrogen [Mass/Vol] 12 mg/dL Normal 8-20 [facility] Comment on above: Performed By: #### 2 4321-2 #### [facility] [address] [place] [address] Urea nitrogen/Creatinine [Mass ratio] 10.5 mg/mg Low 12.0-20.0 [facility] Comment on above: Performed By: #### 2 4321-2 #### [facility] [address] [place] [address] Blood type and Indirect anti body screen panel (Bld)on 03-09-2023 ABO group Nom (Bld) AB Normal [facility] Comment on above: Performed By: #### 3 4532-2 #### [facility] [address] [place] [address] Rh Type Positive Normal [facility] Comment on above: Performed By: #### 3 4532-2 #### [facility] [address] [place] [address] Hemogram and platelets WO di fferential panel (Bld)on 03-09-2023 Erythrocyte distribution width (RBC) [Ratio] 13.4 % Normal 11.0-14.8 [facility] Comment on above: Performed By: #### 2 4317-0 #### [facility] [address] [place] [address] Hematocrit (Bld) [Volume fraction] 48.8 % Normal 39.0-49.0 [facility] Comment on above: Performed By: #### 2 7-0 #### [facility] [address] [place] [address] Hemoglobin (Bld) [Mass/Vol] 16.3 g/dL Normal 13.5-17.5 [facility] Comment on above: Performed By: #### 2 7-0 #### [facility] [address] [place] [address] MCH 28.7 pcg Normal 27.0-34.0 [facility] Comment on above: Performed By: #### 2 4316-0 #### [facility] [address] [place] [address] MCHC (RBC) [Mass/Vol] 33.4 g/dL Normal 30.8-35.3 [facility] Comment on above: Performed By: #### 2 7-0 #### [facility] [address] [place] [address] MCV (RBC) [Entitic vol] 86.1 fL Normal 80.0-97.0 [facility] Comment on above: Performed By: #### 2 4317-0 #### [facility] [address] [place] [address] Platelet mean volume (Bld) [Entitic vol] 10.4 fL Normal 6.2-12.1 [facility] Comment on above: Performed By: #### 2 4317-0 #### [facility] [address] [place] [address] Platelets (Bld) [#/Vol] 214 10*3/uL Normal 142-424 [facility] Comment on above: Performed By: #### 2 4317-0 #### [facility] [address] [place] [address] RBC (Bld) [#/Vol] 5.67 10*6/uL Normal 4.30-5.70 [facility] Comment on above: Performed By: #### 2 4317-0 #### [facility] [address] [place] [address] WBC (Bld) [#/Vol] 6.8 10*3/uL Normal 4.6-10.2 [facility] Comment on above: Performed By: #### 2 4317-0 #### [facility] [address] [place] [address] PT Coag (PPP) [Time]on 03-09 aPTT Coag (Bld) [Time] 25.6 s Normal 23.3-35.3 [facility] Comment on above: Order Comment: The r ecommended therapeutic INR range for most cardiac indications is 2.0-3.0 For high intensity therapy (i.e. mechanical heart valves), the recommended range is 2.5-3.5 Performed By: #### 5 902-2 #### [facility] [address] [place] [address] URINALYSIS CHEM ONLYon 03-09 Bilirubin, Urine Negative Normal Negative [facility] Comment on above: Performed By: #### L [id number] #### [facility] [address] [place] [address] Blood, Urine Negative Normal Negative, Trace [facility] Comment on above: Performed By: #### L [id number] #### [facility] [address] [place] [address] Clarity (U) Clear Normal Clear [facility] Comment on above: Performed By: #### L [id number] #### [facility] [address] [place] [address] Color (U) Colorless Abnormal Yellow [facility] Comment on above: Performed By: #### L [id number] #### [facility] [address] [place] [address] Glucose Ql (U) Normal Normal Normal [facility] Comment on above: Performed By: #### L [id number] #### [facility] [address] [place] [address] Ketones Ql (U) Negative Normal Negative [facility] Comment on above: Performed By: #### L [id number] #### [facility] [address] [place] [address] Leukocytes, Urine Negative Normal Negative [facility] Comment on above: Performed By: #### L [id number] #### [facility] [address] [place] [address] Nitrite, Urine Negative Normal Negative [facility] Comment on above: Performed By: #### L [id number] #### [facility] [address] [place] [address] pH (U) 6.0 [pH] Normal 5.0-8.0 [facility] Comment on above: Performed By: #### L [id number] #### [facility] [address] [place] [address] Protein, Urine Negative Normal Negative [facility] Comment on above: Performed By: #### L [id number] #### [facility] [address] [place] [address] Specific [place] Urine 1.007 Normal 1.002-1.030 [facility] Comment on above: Performed By: #### L [id number] #### [facility] [address] [place] [address] Urobilinogen, Urine Normal Normal Normal [facility] Comment on above: Performed By: #### L [id number] #### [facility] [address] [place] [address] Basophil percentageOrdered B y: Nehal Moore on 01-18-2023 Bilirubin [Mass/Vol] 0.70 mg/dL 0.20-1.00 [facility] Comment on above: For patients on eltr ombopag therapy, use of Dimension [place] TBIL is not recommended. Chloride [Moles/Vol] 105 mmol/L 98-107 [facility] Cholesterol [Mass/Vol] 179 mg/dL <200 [facility] Comment on above: <200 mg/dL Desirable 200-240 mg/dL Borderline >240 mg/dL High Risk Glucose [Mass/Vol] 107 mg/dL 74-106 [facility] Comment on above: Fasting Glucose resu lt from 100 to 125 mg/dL suggests IMPAIRED HOMEOSTASIS per A.D.A. criteria. Potassium [Moles/Vol] 4.0 mmol/L 3.5-5.1 [facility] Protein [Mass/Vol] 7.1 g/dL 6.4-8.2 [facility] Sodium [Moles/Vol] 139 mmol/L 136-145 [facility] Triglyceride [Mass/Vol] 215 mg/dL <199 [facility] Comment on above: The drugs N-Acetylcy steine and Metamizole may falsely depress this assay.Serum Triglycerides Reference Interval Normal <150 mg/dL Borderline high 150 - 199 mg/dL High 200 - 499 mg/dL Very High > or = 500 mg/dL Laboratory - Chemistry and C hemistry - challengeOrdered By: Nehal Moore on 01-18-2023 ALP [Catalytic activity/Vol] 65 U/L 45-117 [facility] ALT [Catalytic activity/Vol] 57 U/L 16-61 [facility] CO2 [Moles/Vol] 32.0 mmol/L 21.0-32.0 [facility] Globulin (S) [Mass/Vol] 3.2 g/dL 2.2-4.2 [facility] Urea nitrogen/Creatinine [Mass ratio] 8.3 mg/mg 10-20 [facility] No Panel InformationOrdered By: Nehal Moore on 01-18-2023 Estimated GFR (MDRD) Amer 65 mL/min >60 [facility] Comment on above: GFR Calc Estimated GFR (MDRD) Non-Af Amer 54 mL/min >60 [facility] Comment on above: Non- GFR Calc Prostate Specific Antigen Total 10.60 ng/mL 0.0-4.0 [facility] Comment on above: This test was perfor med using the TPSA assay method for the[employer] chemistry system. Values obtained with differentassay methods cannot be used interchangably.When changing PSA assays in the course of monitoring apatient, additional sequential testing should be carriedout to confirm baseline values. Thyroid Stimulating Hormone (TSH) 1.99 uIU/mL 0.358-3.74 [facility] Serum or plasma albumin tolu urement (mass/volume)Ordered By: Nehal Moore on 01-18-2023 Albumin [Mass/Vol] 3.9 g/dL 3.2-5.0 [facility] Serum or plasma albumin/glob ulin mass ratioOrdered By: Nehal Moore on 01-18-2023 Albumin/Globulin [Mass ratio] 1.2 {ratio} 0.9-2.4 [facility] Serum or plasma calcium tolu urement (mass/volume)Ordered By: Nehal Moore on 01-18-2023 Calcium [Mass/Vol] 9.1 mg/dL 8.5-10.1 [facility] Serum or plasma cholesterol in HDL measurement (mass/volume)Ordered By: Nehal Moore on 01-18-2023 Cholesterol in HDL [Mass/Vol] 49 mg/dL >40 [facility] Comment on above: The drugs N-Acetylcy steine and Metamizole may falsely depress this assay. Reference Range HDL <40 mg/dL Low HDL Cholesterol HDL >or= 60 mg/dL High HDL Cholesterol Serum or plasma cholesterol in VLDL measurement (mass/volume)Ordered By: Nehal Moore on 01-18-2023 Cholesterol in VLDL [Mass/Vol] 43 mg/dL 5-40 [facility] Serum or plasma creatinine m easurement (mass/volume)Ordered By: Nehal Moore on 01-18-2023 Creatinine [Mass/Vol] 1.44 mg/dL 0.70-1.30 [facility] Comment on above: The validity of the calculated GFR & GFRAA in patients over 70 years has not been determined. Clinical correlation is essential. Serum or plasma low density lipoprotein (LDL) cholesterol measurement (mass/volume)Ordered By: Nehal Moore on 01-18-2023 Cholesterol in LDL [Mass/Vol] 87 mg/dL 0-130 [facility] Serum or plasma urea nitroge n measurement (mass/volume)Ordered By: Nehal Moore on 01-18-2023 Urea nitrogen [Mass/Vol] 12 mg/dL 7-18 [facility] Serum or plasma uric acid me asurement (mass/volume)Ordered By: Nehal Moore on 01-18-2023 Urate [Mass/Vol] 7.6 mg/dL 3.5-7.2 [facility] Comment on above: The drugs N-Acetylcy steine and Metamizole may falsely depress this assay. Thin prep Papanicolaou smear with manual screeningOrdered By: Nehal Moore on 01-18-2023 Thin prep Papanicolaou smear with manual screening 28 U/L 15-37 [facility] Thin prep Papanicolaou smear with manual screening 2 5-15 [facility] Whole blood hemoglobin A1c/t otal hemoglobin ratio (mass fraction)Ordered By: Nehal Moore on 01-18-2023 HbA1c (Bld) [Mass fraction] 5.8 % 3.8-5.6 [facility] Comment on above: Normal < 5.7 % Predi abetic 5.7 - 6.4 % Diabetic >or= 6.5 % Please note range changes. Basophil percentageOrdered B y: Dr. Longoria on 05-24-2022 Chloride [Moles/Vol] 103 mmol/L 98-107 [facility] Cholesterol [Mass/Vol] 180 mg/dL <200 [facility] Comment on above: <200 mg/dL Desirable 200-240 mg/dL Borderline >240 mg/dL High Risk Glucose [Mass/Vol] 108 mg/dL 74-106 [facility] Comment on above: Fasting Glucose resu lt from 100 to 125 mg/dL suggests IMPAIRED HOMEOSTASIS per A.D.A. criteria. Potassium [Moles/Vol] 4.7 mmol/L 3.5-5.1 [facility] Sodium [Moles/Vol] 139 mmol/L 136-145 [facility] Triglyceride [Mass/Vol] 183 mg/dL <199 [facility] Comment on above: The drugs N-Acetylcy steine and Metamizole may falsely depress this assay.Serum Triglycerides Reference Interval Normal <150 mg/dL Borderline high 150 - 199 mg/dL High 200 - 499 mg/dL Very High > or = 500 mg/dL Laboratory - Chemistry and C hemistry - challengeOrdered By: Dr. Longoria on 05-24-2022 CO2 [Moles/Vol] 31.0 mmol/L 21.0-32.0 [facility] Urea nitrogen/Creatinine [Mass ratio] 10.9 mg/mg 10-20 [facility] No Panel InformationOrdered By: Dr. Longoria on 05-24-2022 Estimated GFR (MDRD) Amer 69 mL/min >60 [facility] Comment on above: GFR Calc Estimated GFR (MDRD) Non-Af Amer 57 mL/min >60 [facility] Comment on above: Non- GFR Calc Prostate Specific Antigen Screen 6.83 ng/mL 0.00-4.00 [facility] Comment on above: This test was perfor med using the TPSA assay method for the[facility] chemistry system. Values obtained with differentassay methods cannot be used interchangably.When changing PSA assays in the course of monitoring apatient, additional sequential testing should be carriedout to confirm baseline values. Thyroid Stimulating Hormone (TSH) 1.70 uIU/mL 0.358-3.74 [facility] Serum or plasma calcium tolu urement (mass/volume)Ordered By: Dr. Longoria on 05-24-2022 Calcium [Mass/Vol] 9.5 mg/dL 8.5-10.1 [facility] Serum or plasma cholesterol in HDL measurement (mass/volume)Ordered By: Dr. Longoria on 05-24-2022 Cholesterol in HDL [Mass/Vol] 52 mg/dL >40 [facility] Comment on above: The drugs N-Acetylcy steine and Metamizole may falsely depress this assay. Reference Range HDL <40 mg/dL Low HDL Cholesterol HDL >or= 60 mg/dL High HDL Cholesterol Serum or plasma cholesterol in VLDL measurement (mass/volume)Ordered By: Dr. Longoria on 05-24-2022 Cholesterol in VLDL [Mass/Vol] 37 mg/dL 5-40 [facility] Serum or plasma creatinine m easurement (mass/volume)Ordered By: Dr. Longoria on 05-24-2022 Creatinine [Mass/Vol] 1.38 mg/dL 0.70-1.30 [facility] Comment on above: The validity of the calculated GFR & GFRAA in patients over 70 years has not been determined. Clinical correlation is essential. Serum or plasma low density lipoprotein (LDL) cholesterol measurement (mass/volume)Ordered By: Dr. Longoria on 05-24-2022 Cholesterol in LDL [Mass/Vol] 91 mg/dL 0-130 [facility] Serum or plasma urea nitroge n measurement (mass/volume)Ordered By: Dr. Longoria on 05-24-2022 Urea nitrogen [Mass/Vol] 15 mg/dL 7-18 [facility] Serum or plasma uric acid me asurement (mass/volume)Ordered By: Dr. Longoria on 05-24-2022 Urate [Mass/Vol] 6.3 mg/dL 3.5-7.2 [facility] Comment on above: The drugs N-Acetylcy steine and Metamizole may falsely depress this assay. Thin prep Papanicolaou smear with manual screeningOrdered By: Dr. Longoria on 05-24-2022 Thin prep Papanicolaou smear with manual screening 5 5-15 [facility] Whole blood hemoglobin A1c/t otal hemoglobin ratio (mass fraction)Ordered By: Dr. Longoria on 05-24-2022 HbA1c (Bld) [Mass fraction] 5.7 % 3.8-5.6 [facility] Comment on above: Normal < 5.7 % Predi abetic 5.7 - 6.4 % Diabetic >or= 6.5 % Please note range changes. Absolute lymphocyte counton 05-14-2021 Lymphocytes Auto (Unsp spec) [#/Vol] 3.02 10*3/uL 0.83-4.51 [facility] Work Phone: Basophil percentageon 2021 Basophils/100 WBC (Bld) 0.6 % 0-1 [facility] Work Phone: Chloride [Moles/Vol] 102 mmol/L 98-107 [facility] Work Phone: Eosinophils/100 WBC (Bld) 1.6 % 0-5 [facility] Work Phone: Glucose [Mass/Vol] 187 mg/dL 74-106 [facility] Work Phone: Comment on above: Fasting Glucose resu lt greater than or equal to 126 mg/dL suggests DIABETES MELLITUS per A.D.A. criteria. Neutrophils (Bld) [#/Vol] 6.2 10*3/uL 2.0-7.7 [facility] Work Phone: Neutrophils/100 WBC (Bld) 58.1 % 47-70 [facility] Work Phone: Potassium [Moles/Vol] 3.7 mmol/L 3.5-5.1 [facility] Work Phone: Comment on above: Slight Hemolysis, Re sult may be falsely increased. Sodium [Moles/Vol] 135 mmol/L 136-145 [facility] Work Phone: WBC (Bld) [#/Vol] 10.6 10*3/uL 4.4-11.0 [facility] Work Phone: Blood erythrocytes count (nu mber/volume)on 05-14-2021 RBC (Bld) [#/Vol] 5.52 10*6/uL 4.6-6.2 [facility] Work Phone: Blood hemoglobin measurement (mass/volume)on 05-14-2021 Hemoglobin (Bld) [Mass/Vol] 16.1 g/dL 13.0-16.5 [facility] Work Phone: Blood lymphocytes/100 leukoc yteson 05-14-2021 Lymphocytes/100 WBC (Bld) 28.4 % 19-41 [facility] Work Phone: Blood monocytes/100 leukocyt eson 05-14-2021 Monocytes/100 WBC (Bld) 11.0 % 0-10 [facility] Work Phone: Blood platelet mean volumeon 05-14-2021 Platelet mean volume (Bld) [Entitic vol] 10.3 fL 6.2-12.0 [facility] Work Phone: Determination of erythrocyte mean corpuscular volume (MCV)on 05-14-2021 MCV (RBC) [Entitic vol] 87.9 fL 80-94 [facility] Work Phone: Hematocrit Auto (Bld) [Volum e fraction]on 05-14-2021 Hematocrit (Bld) [Volume fraction] 48.5 % 40-54 [facility] Work Phone: Laboratory - Chemistry and C hemistry - challengeon 05-14-2021 CO2 [Moles/Vol] 27.0 mmol/L 21.0-32.0 [facility] Work Phone: Magnesium [Mass/Vol] 1.8 mg/dL 1.6-2.6 [facility] Work Phone: Comment on above: Slight Hemolysis, Re sult may be falsely increased. Natriuretic peptide B (Bld) [Mass/Vol] pg/mL 0-100 [facility] Work Phone: Urea nitrogen/Creatinine [Mass ratio] 9.6 mg/mg 10-20 [facility] Work Phone: Laboratory - Hematology and Cell countson 05-14-2021 Erythrocyte distribution width (RBC) [Entitic vol] 41.9 fL 35.1-43.9 [facility] Work Phone: Erythrocyte distribution width (RBC) [Ratio] 13.0 % 11.6-14.6 [facility] Work Phone: Immature granulocytes/100 WBC (Bld) 0.300 % 0.0-0.9 [facility] Work Phone: Comment on above: IG% - Immature Granu locytes (promyelocytes, myelocytes and metamyelocytes) > 1% indicates that a LEFT SHIFT is Present. MCH (RBC) [Entitic mass] 29.2 pg 27.0-32.0 [facility] Work Phone: Nucleated RBC/100 WBC (Bld) [Ratio] 0 % 0-5 [facility] Work Phone: MCHC Auto (RBC) [Mass/Vol]on 05-14-2021 MCHC (RBC) [Mass/Vol] 33.2 g/dL 32-36 [facility] Work Phone: No Panel Informationon 05-14 Troponin I High Sensitivity 8 pg/mL 3.0-78.0 [facility] Work Phone: Comment on above: Please Note: New Gayle t Units and Gender Specific Reference Ranges. For more information see Policy Stat Procedure [place] High Sensitivity Troponin (TNIH) and attachments. Estimated Creatinine Clearance Calc 59.72 ml/min [facility] Work Phone: Estimated GFR (MDRD) Amer 65 mL/min >60 [facility] Work Phone: Comment on above: GFR Calc Estimated GFR (MDRD) Non-Af Amer 53 mL/min >60 [facility] Work Phone: Comment on above: Non- GFR Calc Thyroid Stimulating Hormone (TSH) 2.59 uIU/mL 0.358-3.74 [facility] Work Phone: Platelets bldon 05-14-2021 Platelets (Bld) [#/Vol] 280 10*3/uL 150-450 [facility] Work Phone: Serum or plasma calcium tlou urement (mass/volume)on 05-14-2021 Calcium [Mass/Vol] 9.4 mg/dL 8.5-10.1 [facility] Work Phone: Serum or plasma creatinine m easurement (mass/volume)on 05-14-2021 Creatinine [Mass/Vol] 1.46 mg/dL 0.70-1.30 [facility] Work Phone: Comment on above: The validity of the calculated GFR & GFRAA in patients over 70 years has not been determined. Clinical correlation is essential. Serum or plasma urea nitroge n measurement (mass/volume)on 05-14-2021 Urea nitrogen [Mass/Vol] 14 mg/dL 7-18 [facility] Work Phone: Thin prep Papanicolaou smear with manual screeningon 05-14-2021 Thin prep Papanicolaou smear with manual screening 6 5-15 [facility] Work Phone: Basophil percentageon 2021 Bilirubin [Mass/Vol] 0.60 mg/dL 0.20-1.00 [facility] Work Phone: Comment on above: For patients on eltr ombopag therapy, use of Dimension [place] TBIL is not recommended. Chloride [Moles/Vol] 104 mmol/L 98-107 [facility] Work Phone: Cholesterol [Mass/Vol] 218 mg/dL <200 [facility] Work Phone: Comment on above: <200 mg/dL Desirable 200-240 mg/dL Borderline >240 mg/dL High Risk Glucose [Mass/Vol] 103 mg/dL 74-106 [facility] Work Phone: Comment on above: Fasting Glucose resu lt from 100 to 125 mg/dL suggests IMPAIRED HOMEOSTASIS per A.D.A. criteria. Potassium [Moles/Vol] 4.3 mmol/L 3.5-5.1 [facility] Work Phone: Protein [Mass/Vol] 7.5 g/dL 6.4-8.2 [facility] Work Phone: Sodium [Moles/Vol] 138 mmol/L 136-145 [facility] Work Phone: Triglyceride [Mass/Vol] 216 mg/dL [facility] Work Phone: Comment on above: The drugs N-Acetylcy steine and Metamizole may falsely depress this assay.Serum Triglycerides Reference Interval Normal <150 mg/dL Borderline high 150 - 199 mg/dL High 200 - 499 mg/dL Very High > or = 500 mg/dL Laboratory - Chemistry and C hemistry - challengeon 05-13-2021 ALP [Catalytic activity/Vol] 59 U/L 45-117 [facility] Work Phone: ALT [Catalytic activity/Vol] 54 U/L 16-61 [facility] Work Phone: CO2 [Moles/Vol] 30.0 mmol/L 21.0-32.0 [facility] Work Phone: Globulin (S) [Mass/Vol] 3.4 g/dL 2.2-4.2 [facility] Work Phone: Urea nitrogen/Creatinine [Mass ratio] 8.0 mg/mg 10-20 [facility] Work Phone: No Panel Informationon 05-13 Estimated GFR (MDRD) Amer 69 mL/min >60 [facility] Work Phone: Comment on above: GFR Calc Estimated GFR (MDRD) Non-Af Amer 57 mL/min >60 [facility] Work Phone: Comment on above: Non- GFR Calc Serum or plasma albumin tolu urement (mass/volume)on 05-13-2021 Albumin [Mass/Vol] 4.1 g/dL 3.2-5.0 [facility] Work Phone: Serum or plasma albumin/glob ulin mass ratioon 05-13-2021 Albumin/Globulin [Mass ratio] 1.2 {ratio} 0.9-2.4 [facility] Work Phone: Serum or plasma calcium tolu urement (mass/volume)on 05-13-2021 Calcium [Mass/Vol] 9.6 mg/dL 8.5-10.1 [facility] Work Phone: Serum or plasma cholesterol in HDL measurement (mass/volume)on 05-13-2021 Cholesterol in HDL [Mass/Vol] 47 mg/dL [facility] Work Phone: Comment on above: The drugs N-Acetylcy steine and Metamizole may falsely depress this assay. Reference Range HDL <40 mg/dL Low HDL Cholesterol HDL >or= 60 mg/dL High HDL Cholesterol Serum or plasma cholesterol in VLDL measurement (mass/volume)on 05-13-2021 Cholesterol in VLDL [Mass/Vol] 43 mg/dL 5-40 [facility] Work Phone: Serum or plasma creatinine m easurement (mass/volume)on 05-13-2021 Creatinine [Mass/Vol] 1.38 mg/dL 0.70-1.30 [facility] Work Phone: Comment on above: The validity of the calculated GFR & GFRAA in patients over 70 years has not been determined. Clinical correlation is essential. Serum or plasma low density lipoprotein (LDL) cholesterol measurement (mass/volume)on 05-13-2021 Cholesterol in LDL [Mass/Vol] 128 mg/dL 0-130 [facility] Work Phone: Serum or plasma urea nitroge n measurement (mass/volume)on 05-13-2021 Urea nitrogen [Mass/Vol] 11 mg/dL 7-18 [facility] Work Phone: Serum or plasma uric acid me asurement (mass/volume)on 05-13-2021 Urate [Mass/Vol] 7.0 mg/dL 3.5-7.2 [facility] Work Phone: Comment on above: The drugs N-Acetylcy steine and Metamizole may falsely depress this assay. Thin prep Papanicolaou smear with manual screeningon 05-13-2021 Thin prep Papanicolaou smear with manual screening 24 U/L 15-37 [facility] Work Phone: Thin prep Papanicolaou smear with manual screening 4 5-15 [facility] Work Phone: Vital Signs Date Time Vital Sign Value Performing Clinician Faci lity 03-28-2023 15:50-0500 Diastolic blood pressure 63 mm[Hg] Jeremie Riley MD Work Phone: [employer] 03-28-2023 15:50-0500 Systolic blood pressure 114 mm[Hg] Jeremie Riley MD Work Phone: [employer] 03-28-2023 15:10-0500 Body temperature 97.9 [degF] Jeremie Riley MD Work Phone: [employer] 03-28-2023 15:10-0500 Heart rate 64 /min Jeremie Riley MD Work Phone: [employer] 03-28-2023 15:10-0500 Respiratory rate 14 /min Jeremie Riley MD Work Phone: [employer] 03-28-2023 15:10-0500 SaO2% (BldA) [Mass fraction] 97 % Jereime Riley MD Work Phone: [employer] 03-28-2023 08:45-0500 Body height 177.8 cm Jeremie Riley MD Work Phone: [employer] 03-28-2023 08:45-0500 Body mass index (BMI) [Ratio] 36.06 kg/m2 Jeremie Rliey MD Work Phone: [employer] 03-28-2023 08:45-0500 Body weight 114 kg Jeremie Riley MD Work Phone: [employer] 04-29-2022 10:18-0500 Body height 177.[address] Renato Rider Work Phone: [facility] 04-29-2022 10:13-0500 Body mass index (BMI) [Ratio] 37.5 kg/m2 Dr. Renato Rider Work Phone: [facility] 04-29-2022 10:13-0500 Body weight 118.[address] Renato Rider Work Phone: [facility] 04-29-2022 10:13-0500 Diastolic blood pressure 82 mm[Hg] Dr. Renato Rider Work Phone: [facility] 04-29-2022 10:13-0500 Heart rate 66 /min Dr. Renato Rider Work Phone: [facility] 04-29-2022 10:13-0500 Respiratory rate 18 /min Dr. Renato Rider Work Phone: [facility] 04-29-2022 10:13-0500 SaO2% (BldA) [Mass fraction] 94 % Dr. Renato Rider Work Phone: [facility] 04-29-2022 10:13-0500 Systolic blood pressure 138 mm[Hg] Dr. Renato Rider Work Phone: [facility] 05-17-2021 13:26-0500 Body height 177.[address] Renato Rider Work Phone: [facility] Work Phone: 05-17-2021 13:26-0500 Body mass index (BMI) [Ratio] 36.1 kg/m2 Dr. Renato Rider Work Phone: [facility] Work Phone: 05-17-2021 13:26-0500 Body weight 114.[address] Renato Rider Work Phone: [facility] Work Phone: 05-17-2021 13:26-0500 Diastolic blood pressure 89 mm[Hg] Dr. Renato Rider Work Phone: [facility] Work Phone: 05-17-2021 13:26-0500 Heart rate 62 /min Dr. Renato Rider Work Phone: [facility] Work Phone: 05-17-2021 13:26-0500 Respiratory rate 16 /min Dr. Renato Rider Work Phone: [facility] Work Phone: 05-17-2021 13:26-0500 SaO2% (BldA) [Mass fraction] 96 % Dr. Renaot Rider Work Phone: [facility] Work Phone: 05-17-2021 13:26-0500 Systolic blood pressure 131 mm[Hg] Dr. Renato Rider Work Phone: [facility] Work Phone: 05-14-2021 20:00-0500 Diastolic blood pressure 78 mm[Hg] Dr. Renato Rider Work Phone: [facility] Work Phone: 05-14-2021 20:00-0500 Heart rate 70 /min Dr. Renato Rider Work Phone: [facility] Work Phone: 05-14-2021 20:00-0500 Respiratory rate 23 /min Dr. Renato Rider Work Phone: [facility] Work Phone: 05-14-2021 20:00-0500 SaO2% (BldA) [Mass fraction] 98 % Dr. Rentao Rider Work Phone: [facility] Work Phone: 05-14-2021 20:00-0500 Systolic blood pressure 137 mm[Hg] Dr. Renato Ridre Work Phone: [facility] Work Phone: 05-14-2021 16:42-0500 Body mass index (BMI) [Ratio] 37.3 kg/m2 Dr. Renato Rider Work Phone: [facility] Work Phone: 05-14-2021 16:42-0500 Body temperature 98.1 [degF] Dr. Renato Rider Work Phone: [facility] Work Phone: 05-14-2021 16:42-0500 Body weight 117.[address] Renato Rider Work Phone: [facility] Work Phone: Encounters Encounter Date Encounter Type Care Provider Facility Start: 01-21-2025 ambulatory [place] [facility] Facility:[facility] Start: 01-20-2025 ambulatory [facility] Facility: [facility] Start: 01-19-2025 End: 01-19-2025 Emergency department patient visit [facility] Facility:[facility] Start: 09-26-2024 ambulatory [facility] Facility: [facility] Start: 07-02-2024 End: 07-02-2024 [facility] Start: 03-26-2024 End: 03-26-2024 ambulatory [facility] Facility:[facility] Start: 02-21-2024 End: 02-21-2024 ambulatory [facility] Facility:[facility] Start: 06-30-2023 End: 06-30-2023 ambulatory [facility] Work Phone: Start: 06-30-2023 End: 06-30-2023 Patient encounter procedure [facility] Work Phone: Start: 03-28-2023 End: 03-28-2023 ambulatory JEREMIE RILEY [facility] Start: 03-28-2023 End: 03-28-2023 Evaluation and management of inpatient Jeremie Riley MD Work Phone: [facility] Start: 03-28-2023 End: 03-28-2023 Subsequent hospital visit by physician Jeremie Riley MD Work Phone: [facility] Comment on above: Malignant neoplasm o f prostate (CMS/HCC) Start: 03-21-2023 End: 03-21-2023 Patient encounter procedure [facility] Start: 03-09-2023 End: 03-09-2023 ambulatory NEHAL MIEDEL [facility] Start: 03-09-2023 Encounter for other preprocedural examination JEREMIE RILEY [facility] Start: 02-17-2023 End: 02-17-2023 ambulatory [facility] Work Phone: Start: 02-17-2023 End: 02-17-2023 Patient encounter procedure [facility]-Cat Scan, [facility] Work Phone: Start: 02-13-2023 End: 02-13-2023 ambulatory [facility] Work Phone: Start: 02-13-2023 End: 02-13-2023 Patient encounter procedure [facility], Specimen Work Phone: Start: 02-10-2023 End: 02-10-2023 ambulatory [facility] Work Phone: Start: 02-10-2023 End: 02-10-2023 Patient encounter procedure [facility]MRI - [facility] Work Phone: Start: 01-18-2023 End: 01-18-2023 Patient encounter procedure [facility] Work Phone: Start: 05-24-2022 End: 05-24-[address] Renato Rider Work Phone: [facility] Work Phone: Start: 05-24-2022 End: 05-24-[address] Renato Rider Work Phone: [facility] Start: 04-29-2022 End: 04-29-[address] Renato Rider Work Phone: [facility] Start: 06-01-2021 Non-patient / Non-visit Dr. Blake Rider Work Phone: [facility] Start: 06-01-2021 End: 06-01-[address] Renato Rider Work Phone: [facility] Start: 05-17-2021 End: 05-17-[address] Renato Rider Work Phone: [facility] Start: 05-14-2021 End: 05-14-2021 Emergency department patient visit Dr. Renato Rider Work Phone: [facility]Emergency Department Start: 05-13-2021 End: 05-13-[address] Renato Rider Work Phone: [facility] Procedures Date Procedure Procedure Detail Performing Clinician Start: 03-21-2023 Positron emission tomography with computed tomography Start: 03-09-2023 Antibody screen JEREMIE RILEY Comment on above: Performed By: #### 3 [id number] #### [facility] [address] [place] [address] Start: 02-17-2023 Computed tomography of abdomen and pelvis with contrast Start: 02-17-2023 Radionuclide whole b evan bone study Start: 02-10-2023 MRI of pelvis with contrast Start: 05-14-2021 Plain chest X-ray Dr. Nitin Rider Work Phone: Plan of Treatment Date Care Activity Detail Author Start: 03-09-2024 Hypertension/CHF/CAD Annual BMP Blood Test Hypertension/CHF/CAD Annual BMP Blood Test [employer] Start: 03-28-2023 End: 03-28-2023 PROSTATECTOMY ROBOT PROSTATECTOMY ROBOT Malignant neoplasm of prostate (CMS/HCC) 03/28/2023 10:19 AM EST [employer] Start: 03-09-2023 Adolescent depressio n screening assessment Depression Screening [employer] Start: 03-09-2023 Hepatitis C screening Hepatitis C Sc reening [facility] Start: 03-09-2023 HIV screening HIV Screening [facility] Start: 03-09-2023 Lipid panel Cholesterol Sc reening (Lipid Panel) [facility] Start: 03-09-2023 Social Influencers o f Health Screening Social Influencers of Health Screening [facility] Start: 11-11-2022 Influenza vaccination Influenza Vacc ine (#1) [facility] Start: 05-29-2017 DTaP,Tdap,and Td Vaccines (2 - Td or Tdap) DTaP,Tdap,and Td Vaccines (2 - Td or Tdap) [facility] Start: 1985 Zoster Vaccines (1 of 2) Zoster Vacc chanelle (1 of 2) [facility] Start: 1972 Pneumococcal Vaccine : Pediatrics (0 to 5 Years) and At-Risk Patients (6 to 64 Years) (1 - PCV) Pneumococcal Vaccine: Pediatrics (0 to 5 Years) and At-Risk Patients (6 to 64 Years) (1 - PCV) [facility] Start: 11-30-1971 COVID-19 Vaccine (#1) COVID-19 Vacci ne (#1) [facility] Start: 1966 Hepatitis B Vaccines (1 of 3 - 3-dose series) Hepatitis B Vaccines (1 of 3 - 3-dose series) [facility] Pathology study [facility] Work Phone: Comment on above: Release Upon [place] for 1 Occurrences starting 03/28/2023, 1 completed Patient Education ED Weakness (U ncertain Cause) [facility] Work Phone: Patient referral [facility] Work Phone: Payers Date Payer Category Payer Self-pay [id number] 2022 Unknown [id number] 2022 Unknown [employer] [id number] 2022-Present [address] [place] [id number] 2016 Unknown [id number] 1966 Unknown [id number] 1966 Unknown [id number] Unknown [facility] PACKAGE PLAN [id number] Unknown [id number] Unknown [id number] Unknown [id number] Unknown [id number] Unknown [id number] Unknown [id number] Unknown [id number] Social History Date Type Detail Facility Start: 05-17-2021 End: 04-29-2022 Tobacco smoking status NHIS Unknown if ever smoked [facility] Start: 05-13-2016 None [facility] Start: 05-09-2016 Spouse/ Signif icant Other [facility] Start: 05-09-2016 Non-smoker [facility] Start: 1965 Sex Assigned At Male W [facility] Start: 03-09-2023 Tobacco smoking status NHIS Never smoked tobacco [facility] Start: 03-09-2023 Tobacco use and exposure Smokeless tobacco non-user [facility] Start: 03-28-2023 Alcohol intake Current drinke r of alcohol (finding) [facility] Start: 03-09-2023 Alcohol Comment occasional [facility] Start: 1965 Sex Assigned At Not on file T [facility] Gender identity Not on file [facility] Mental Status Date Assessment Result Facility 05-14-2021 Cognitive function Voice/Name [facility]ad [facility] Work Phone: Clinical Notes 03-14-2023 to 03-28-2023 [...] home with newell catheter and leg bag. [facility] 03-28-2023 Procedure note Patient tolerating naila crackers and water. Patient walked back and forth in SDU multiple times without issue. Discharge teaching done with patient's . All questions answered. Patient going home with newell catheter and leg bag. ATTENDING PHYSICIAN: Jeremie Riley MD GENERAL SERVICE OFFICER: Rolly HERNÁNDEZ PREOPERATIVE DIAGNOSIS Prostate cancer. POSTOPERATIVE [...] the surgery and need for a bedside clothing sales assistant, Rolly HERNÁNDEZ assisted for the entire surgery. Newell catheter edu and surgeon's discharge instructions completed in preop. Genereal anesthesia post-op care instructions completed in preop. All questions answered and pt verbalized understanding. Marielos/Dr. Riley's office notified of mixed isidro in urine. Office to follow up. documented in this encounter [facility] 03-28-2023 History of Presen t illness Narrative Adequate for pacu discharge documented in this encounter [facility] 03-28-2023 Surgery Surgical operation note ATTENDING PHYSICIAN: Jeremie Riley MD GENERAL SERVICE OFFICER: Rolly HERNÁNDEZ PREOPERATIVE DIAGNOSIS Prostate cancer. POSTOPERATIVE [...] the surgery and need for a bedside clothing sales assistant, Rolly HERNÁNDEZ assisted for the entire surgery. [facility] 03-28-2023 Attending History and physical note History [...] note were not included. Mundo Dunn MD [facility] Hospitalists Medical Consultation Patient Name:Grant Thurston MR #:[id number] :1965 Admit Date: Physicians: Nehal Moore MD (Family); No ref. provider found (Referring) Reason for Consultation: Pre-Operative medical risk stratification and testing at the request of Dr. Jeremie Riley scheduled robotic assisted laparoscopic prostatectomy with lymph node dissection on March 28, 2023 Perpetual Assessment: Grant Thurston is a 57 y.o. male presented to [facility] for Pre operative evaluation. ASSESSMENT [...] 60-89 ml/min) Kidney stones 2016 Prostate cancer ([facility]/HCC) 02/2023 Seasonal allergies Past Surgical History: Procedure [...] [x] Outside Records [] Family Time Spent: [facility] 03-28-2023 History and physi guillaume note History [...] note were not included. Mundo Dunn MD [facility] Hospitalists Medical Consultation Patient Name:Grant Thurston MR #:[id number] :[id number] Admit Date: Physicians: Nehal Moore MD (Family); No ref. provider found (Referring) Reason for Consultation: Pre-Operative medical risk stratification and testing at the request of Dr. Jeremie Riley scheduled robotic assisted laparoscopic prostatectomy with lymph node dissection on March 28, 2023 Perpetual Assessment: Grant Thurston is a 57 y.o. male presented to [facility] clinic for Pre operative evaluation. ASSESSMENT AND [...] 60-89 ml/min) Kidney stones 2016 Prostate cancer ([facility]/HCC) 02/2023 Seasonal allergies Past Surgical History: Procedure [...] Family Time Spent: documented in this encounter [facility] 03-28-2023 Nurse Note Newell catheter edu and surgeon's discharge instructions completed in preop. Genereal anesthesia post-op care instructions completed in preop. All questions answered and pt verbalized understanding. [facility] 03-14-2023 Nurse Note Marielos/Dr. Riley's office notified of mixed isidro in urine. Office to follow up. [facility] Evaluation note Diagnosis Onset Date Elevated blood pressure read ing without diagnosis of hypertension acute Hypertriglyceridemia acute [facility] Work Phone: Evaluation note* Diagnosis Onset Date Resolution Status Elevated blood pressure read ing without diagnosis of hypertension acute Hyperlipidemia chronic [facility] Work Phone: Evaluation noteNo assessment information available [facility] Work Phone: Evaluation note* Diagnosis Malignant neoplasm of prostate (CMS/HCC) Malignant neoplasm of prostate Prostate CA (CMS/HCC) Malignant neoplasm of prostate documented in this encounter [facility] Discharge instructions* Attachments The following attachments cannot be sent through Care Everywhere. * Radical Prostatectomy: Laparoscopic: Post-op (Bermudian) * General Anesthesia (Bermudian) * Indwelling Urinary Catheter Care: General Info (Bermudian) [facility] Chief Complaint and Reason for Visit Chief [...] Yes May 14, 2021 6:45pm Power of Automobile Damage Appraiser Yes May 14 6:45pm Advance Directive Response Recorded Date/ Time Advance Directives Yes March 30, 2016 10:04pm Living Will Yes May 14, 2021 5:45pm Power of Automobile Damage Appraiser Yes May 14 5:45pm Summary Purpose Additional [...] Care Provider, Referring Provider Active Ketty Montaño AERONAUTICAL INSPECTOR, AERONAUTICAL INSPECTOR-C Attending Provider Active Team Status: Inactive Member [...] MD Attending Provider, Referr ing Provider Active Resource Engineer Relationship Specialty Start Date End Date Nehal Moore MD [address] [place] [id number] PCP - General Family Medicine 03/09/23 Team Status: Inactive Member Role Status Dates ABHILASH [facility] Attending Provider, Referring Provider A ctive Dr. Nehal Moore MD Primary Care Provider Active Dr. Garrett Major MD Other Provider Active Reason for Visit (unrecogniz ed section and content) Specialty Diagnoses / Procedures Referred By Vj rosas Referred To Contact Diagnoses Malignant neoplasm of prostate (CMS/HCC) Procedures PA LAP SURG PROSTATECTOMY RETROPUBIC RADICAL INCL NRV SPARING/ROBOTIC ASST PA LAPAROSCOPY SURG BILATERAL TOTAL PELVIC LYMPHADENECTOMY ROBOTIC ASSISTED LAPAROSCOPIC PROSTATECTOMY WITH PELVIC LYMPH NODE DISSECTION Jeremie Riley MD [address] [place] [address] [facility] [place] [address] [place] [address] Referral ID Status Reason Start Date Expiration Date Visits Re quested Visits Authorized [id number] 1 1 Scheduled Active and Recently Administ [...] section and content) DATE CREATED AUTHOR 06/07/2023 [facility] DATE CREATED AUTHOR AUTHOR'S ORGANIZ ATION 01/21/2025 [facility] FOR RECORDS PERTAINING TO PATIENTS WHO ARE [...] BE BASED ON THE PRIMARY CLINICAL RECORDS. [employer] [facility]. provides no warranty or guarantee of the accuracy or completeness of information in this document.
[2025-01-30 17:08] LABS: Cytoplasmic Ab (C-ANCA) <1:20 titer (Neg:<1:20); Perinuclear Ab (P-ANCA) <1:20 titer (Neg:<1:20)
[2025-01-31 08:10] LABS: ANTINUCLEAR ANTIBODIES DIRECT Negative (Negative)
== END | disposition home or self-care (01) ==
LOC: LAB 12:50
PROVIDERS: PCP Family Medicine; Referring Provider Family Medicine; Visit Provider Family Medicine
DX: M25.50 Pain in unspecified joint (principal)
CPT/HCPCS: 36415; 86037; 86038; 86200; 86431

== ENCOUNTER → 2025-01-31 | Outpatient (CLI) | payer OTHER, SELFPAY ==
--- NOTE | 2025-01-31 18:20 | CT_ITS ---
PROCEDURE: CT ABDOMEN/PEL W ORAL CONT ONLY 01/31/2025 REASON FOR EXAM: POSSIBLE DIVERTICULITIS TECHNIQUE: Procedure Code: [id number] Modality: CT Procedure: ABDOMEN/PEL W ORAL CONT ONLY Noncontrast technique limits evaluation of the abdominal and pelvic viscera. Coronal and Sagittal reconstruction series were provided. Oral contrast was administered. One or more dose reduction techniques were used (e.g., Automated exposure control, adjustment of the mA and/or kV according to patient size, use of iterative reconstruction technique). RADIATION DOSE SUMMARY: CTDlvol: 23.94 mGy DLP: 1387.72 mGycm COMPARISON: Abdominal CT 02/17/2023. PET-CT 02/27/2024. FINDINGS: Lung bases: Clear. Liver: Unremarkable. Gallbladder: Unremarkable. Spleen: Unremarkable Pancreas: Unremarkable. Adrenals: Stable mild nodular thickening of left adrenal gland, possibly a small adenoma. Kidneys: Few bilateral tiny subcentimeter nonobstructive renal stones. No ureteral calculi or hydroureteronephrosis on either side. Bladder: Unremarkable. Reproductive Organs: Unremarkable. Status post prostatectomy. Bowel: Postoperative changes of partial colectomy with distal rectosigmoid anastomosis. Unremarkable zak-anastomotic region. Status post appendectomy. No bowel obstruction or active inflammatory process. Mild distal colonic diverticulosis without evidence for active diverticulitis/colitis. Lymph nodes: No suspicious lymph node enlargement. Vasculature: Normal caliber abdominal aorta. Mild atherosclerotic calcifications. Peritoneum / Retroperitoneum: No ascites or free air. Bones: Mild degenerative changes of the spine. No osseous lytic or blastic lesion. CT/Abdomen/Pel W ORAL Cont Only IMPRESSION: 1. No bowel obstruction or active inflammatory process is evident. 2. Mild distal colonic diverticulosis without evidence for active diverticuliti s. 3. Few bilateral tiny nonobstructive renal stones. No hydronephrosis. 4. Additional ancillary findings as noted above. Reading Location: [id number]
== END | disposition home or self-care (01) ==
LOC: CT 16:43
PROVIDERS: PCP Family Medicine; Referring Provider Family Medicine; Visit Provider Family Medicine
DX: R10.32 Left lower quadrant pain (principal)
CPT/HCPCS: 74176

== ENCOUNTER → 2025-02-20 | Outpatient (CLI) | payer OTHER, SELFPAY ==
--- NOTE | 2025-02-20 09:46 | RAD_ITS ---
PROCEDURE: CHEST PA AND LATERAL 02/20/2025 REASON FOR EXAM: COUGH TECHNIQUE: Procedure Code: RADCXR Modality: DX Procedure: CHEST PA AND LATERAL FINDINGS: Scattered reticular opacities may reflect pulmonary vascular congestion or atypical pneumonia. No definite focal consolidations. No pleural effusion or pneumothorax. Cardiac silhouette is within normal limits. No acute fractures. RAD/Chest PA and Lateral IMPRESSION: Scattered reticular opacities may reflect pulmonary vascular congestion or atyp ical pneumonia. No definite focal consolidations. Reading Location: [id number]
== END | disposition home or self-care (01) ==
LOC: RAD 09:45
PROVIDERS: PCP Family Medicine; Referring Provider Internal Medicine Rheumatology; Visit Provider Internal Medicine Rheumatology
DX: R05.9 Cough, unspecified (principal)
CPT/HCPCS: 71046